=== PATIENT | female | born 1955 | race Caucasian/White ===

== ENCOUNTER 2018-01-04 13:52 | Day surgery (SDC) | payer OTHER ==
[~2018-01-04 13:52] MED LIST: AMLO10 PO; ATEN25; ATEN25 PO; Amoxicillin500 MG PO; BENTYL10 MG PO; BUPR100 PO; BUPR150ER PO; BUPR150T2; BUPR150T2 PO; BUSP10; BUSP10 PO; CELE400; CITA20; CITA20 PO; CONEST.625 PO; CYCL10; CYCL10 PO; DOCU100 PO; DOXY100 PO; ESTR2; FLUC200; FLUC200 PO; GABA400; GABA400 PO; GYNAZOLE; GYNAZOLE VG; Glucagon Emergen1 MG IJ; HUMALOG; HYDCHL25 PO; HYDCOR10 PO; INSLI100I; INSLIS75I SC; INSLIS75I SUBQ; INSULIN PUMP; KETO120T TOP; LEVSOD50; LIDO5TP TOP; LIDOCARE1 EACH TP; LISI5; LISI5 PO; LORA.5 PO; LORA1; LORA1 PO; META800 PO; METH10 PO; METH5 PO; METO10 PO; MINO100; MODA200; Methadose 40 mg40 MG PO; OLME20 PO; OMEP20ER PO; ONDA4ODT MM; ONDA8ODT MM; OXYACE10; OXYC10ER; OXYC30 PO; OXYC30ER PO; OXYC5; OXYC5 PO; OXYCODONE 15 MG; PHENTERMINE; PROC25S PR; PROM12.5S PR; PROM25 PO; PROM25 PR; PROM25S PR; ROSU10TA; ROSU10TA PO; VALA500; VALA500 PO; VALACYCLOVIR1000 MG PO; WELLBUTRIN 300 MG; Zofran Odt4 MG SL; Zofran Odt8 MG SL; [UNRECOGNIZED DRUG - OTHER]; [UNRECOGNIZED DRUG - OTHER] SC
== END 2018-01-04 22:49 | disposition home or self-care (01) ==
LOC: WOUND 13:52
DX: Z48.00 Encounter for change or removal of nonsurgical wound dressing (principal); S81.801A Unspecified open wound, right lower leg, initial encounter; E10.9 Type 1 diabetes mellitus without complications; Z79.4 Long term (current) use of insulin
CPT/HCPCS: G0463

== ENCOUNTER → 2018-10-30 | Outpatient (CLI) | payer OTHER ==
[~2018-10-30] MED LIST changes: +ACET325 PO; -AMLO10 PO; +AMLO5 PO; +ASPI325EC PO; +Adipex-P37.5 MG PO; +Advair Hfa 230-12 GM; +Augmentin 875-1 EACH PO; +Azor 10-20 MG1 EACH; +BENZ100A PO; +Buspirone HCl10 MG PO; +Crestor20 MG PO; +FERRO-TIME325 MG PO; +FLUC150A PO; +FURO40 PO; +Flonase 0.05% N16 GM; +Fluocinonide60 ML TOP; +HYDCHL12.5 PO; +Hair, Skin & N1 EACH PO; +Humalog100 UNIT/1 SC; +Hydrochlorothia25 MG PO; +INSU100I6 SC; +LIDO5TO TOP; +LIDO700A20 TOP; +LIDOCAINE1 EACH TOP; +LOSA25 PO; +METH10; +MIRT30 PO; +NARCAN4 MG INH; +Novolog Fl100 UNIT/1 INJ; +Percocet 5-3251 EACH PO; -ROSU10TA PO; +ROSUVASTATIN CA20 MG PO; +Stool Softener250 MG PO; +Zithromax250 MG PO
== END | disposition home or self-care (01) ==
LOC: LAB 15:00 → LAB SHORT 15:00
DX: N89.8 Other specified noninflammatory disorders of vagina (principal)
CPT/HCPCS: 87070; 87205

== ENCOUNTER 2018-11-07 13:18 | Emergency (ER) | payer OTHER ==
[~2018-11-07] VITALS: Ht 177.8 cm; Wt 95.2 kg
[~2018-11-07 13:18] MED LIST changes: -ASPI325EC PO; -Adipex-P37.5 MG PO; -Advair Hfa 230-12 GM; -Augmentin 875-1 EACH PO; -Azor 10-20 MG1 EACH; -Buspirone HCl10 MG PO; -Hydrochlorothia25 MG PO; -LIDO5TO TOP; -Percocet 5-3251 EACH PO; -ROSUVASTATIN CA20 MG PO
[2018-11-07 14:09] LABS: BASOPHILS ABSOLUTE AUTO 0.01 K/mm3 (0.00-0.23); BASOPHILS PERCENT AUTO 0 % (0-2); EOSINOPHILS ABSOLUTE AUTO 0.12 K/mm3 (0.00-0.68); EOSINOPHILS PERCENT AUTO 2 % (0-6); Hematocrit 37.1 % (33.0-51.0); Hemoglobin 12.2 g/dL (11.5-16.0); IMMATURE GRAN ABSOLUTE AUTO 0.01 K/mm3 (0.00-0.10); IMMATURE GRAN PERCENT AUTO 0 % (0-1); LYMPHOCYTES ABSOLUTE AUTO 1.95 K/mm3 (0.84-5.20); LYMPHOCYTES PERCENT AUTO 32 % (21-46); MONOCYTES PERCENT AUTO 8 % (4-13); Mean Corpuscular HGB 29.7 pg (26.0-34.0); Mean Corpuscular HGB Conc 32.9 g/dL (31.5-36.5); Mean Corpuscular Volume 90 fL (80-100); NEUTROPHILS ABSOLUTE AUTO 3.59 K/mm3 (1.96-9.15); NEUTROPHILS PERCENT AUTO 58 % (41-73); Platelet Count 321 K/mm3 (150-400); RDW Coefficient Variation 11.8 % (11.7-14.2); RDW Standard Deviation 38.8 fL (35.1-46.3); Red Blood Cell Count 4.11 M/mm3 (3.80-5.20); White Blood Cell Count 6.18 K/mm3 (4.00-11.30)
[2018-11-07 15:04] LABS: Alanine Aminotransfer (ALT/SGP 25 U/L (12-78); Albumin, Blood 3.5 g/dL (3.4-5.0); Alk Phos 109 U/L (50-136); Anion Gap 8 mmol/L (6-16); Aspartate Aminotrans (AST/SGOT 26 U/L (12-37); Bilirubin, Total 0.5 mg/dL (0.1-1.0); Blood Urea Nitrogen 16 mg/dL (8-24); Bun/Creatinine Ratio 10.8 (12.0-20.0); CO2, Blood 28 mmol/L (21-32); Calcium, Blood 8.8 mg/dL (8.5-10.1); Chloride, Blood 101 mmol/L (98-108); Creatinine, Blood 1.48 mg/dL (0.40-1.00); Globulin, Blood 3.5 g/dL (2.2-4.0); Glomerular Filtration Rate 38 (60-); Glucose, Blood 122 mg/dL (70-99); Potassium, Blood 4.6 mmol/L (3.5-5.5); Sodium, Blood 137 mmol/L (136-145); Troponin I <0.015 ng/mL (0.000-0.040)
[2018-11-07] MEDS ORDERED: Azor 10-20 MG1 EACH (15:38)
[2018-11-07] MEDS ORDERED: CONEST.625 PO (15:39)
[2018-11-07] MEDS ORDERED: Hydrochlorothia25 MG PO (15:39)
[2018-11-07] MEDS ORDERED: FLUC200 PO (15:39)
[2018-11-07] MEDS ORDERED: ATEN25 PO (15:39)
[2018-11-07] MEDS ORDERED: METO10 PO (15:40)
[2018-11-07] MEDS ORDERED: Adipex-P37.5 MG PO (15:40)
[2018-11-07] MEDS ORDERED: LOSA25 PO (15:40)
[2018-11-07] MEDS ORDERED: ROSUVASTATIN CA20 MG PO (15:40)
[2018-11-07] MEDS ORDERED: LIDO5TO TOP (15:41)
[2018-11-07] MEDS ORDERED: METH10 PO (15:41)
[2018-11-07] MEDS ORDERED: Advair Hfa 230-12 GM (15:41)
[2018-11-07] MEDS ORDERED: Buspirone HCl10 MG PO (15:41)
== END 2018-11-07 17:10 | disposition home or self-care (01) ==
LOC: ER 13:18
PROVIDERS: Physician Assistant
DX: I49.3 Ventricular premature depolarization (principal); R00.2 Palpitations; E11.9 Type 2 diabetes mellitus without complications; I10 Essential (primary) hypertension
CPT/HCPCS: 36415; 71046; 80053; 83735; 83880; 84443; 84484; 85025; 93005; 93010; 93225; 93226; 99285-25

== ENCOUNTER 2018-11-10 19:47 | Observation (INO) | payer OTHER ==
[~2018-11-10] VITALS: Ht 177.8 cm; Wt 96.2 kg
[~2018-11-10 19:47] MED LIST changes: +Adipex-P37.5 MG PO; +Advair Hfa 230-12 GM; +Azor 10-20 MG1 EACH; +Buspirone HCl10 MG PO; +Hydrochlorothia25 MG PO; +LIDO5TO TOP; +ROSUVASTATIN CA20 MG PO
[2018-11-10 22:04] LABS: BASOPHILS ABSOLUTE AUTO 0.03 K/mm3 (0.00-0.23); BASOPHILS PERCENT AUTO 1 % (0-2); EOSINOPHILS ABSOLUTE AUTO 0.16 K/mm3 (0.00-0.68); EOSINOPHILS PERCENT AUTO 3 % (0-6); Hematocrit 38.2 % (33.0-51.0); Hemoglobin 12.5 g/dL (11.5-16.0); IMMATURE GRAN PERCENT AUTO 0 % (0-1); LYMPHOCYTES ABSOLUTE AUTO 1.54 K/mm3 (0.84-5.20); LYMPHOCYTES PERCENT AUTO 26 % (21-46); MONOCYTES ABSOLUTE AUTO 0.55 K/mm3 (0.16-1.47); MONOCYTES PERCENT AUTO 9 % (4-13); Mean Corpuscular HGB 29.4 pg (26.0-34.0); Mean Corpuscular HGB Conc 32.7 g/dL (31.5-36.5); Mean Corpuscular Volume 90 fL (80-100); Mean Platelet Volume 10.2 fL (9.1-12.4); NEUTROPHILS ABSOLUTE AUTO 3.72 K/mm3 (1.96-9.15); NEUTROPHILS PERCENT AUTO 62 % (41-73); Platelet Count 319 K/mm3 (150-400); RDW Coefficient Variation 11.6 % (11.7-14.2); RDW Standard Deviation 38.1 fL (35.1-46.3); Red Blood Cell Count 4.25 M/mm3 (3.80-5.20)
[2018-11-10 22:19] LABS: International Normalized Ratio 0.94
[2018-11-10 22:22] LABS: Albumin, Blood 3.6 g/dL (3.4-5.0); Albumin/Globulin Ratio 0.9 (0.8-1.8); Bilirubin, Total 0.2 mg/dL (0.1-1.0); Calcium, Blood 9.1 mg/dL (8.5-10.1); Creatinine, Blood 1.46 mg/dL (0.40-1.00); Potassium, Blood 4.2 mmol/L (3.5-5.5); Total Protein, Blood 7.6 g/dL (6.4-8.2)
--- NOTE | 2018-11-11 05:28 | NUR ---
SHIFT SUMMARY PT ADMITTED FOR FOREIGN BODY IN LEFT KNEE. SHE'S SCHEDULED FOR SURGERY TODAY AN ADD-ON. PT IS A&O, INDEPENDENT AT BASELINE, THOUGH WITH HER KNEE PAIN SHE IS CURRENTLY A 1 ASSIST. PT IS PAINFUL AT REST AND HAS CHRONIC PAIN ISSUES, AND SHE BECOMES MORE PAINFUL WITH MOVEMENT. SHE USES METHADONE DAILY. PT HAS BEEN NPO SINCE MIDNIGHT IN PREP FOR SURGERY. SHE IS A VERY DIFFICULT IV START AND DOES NOT YET HAVE AN 18G. RUNNING FLUIDS AT THIS TIME. PT IS A TYPE 1 DIABETIC AND HAS AN INSULIN PUMP AND A FREESTYLE SENSOR IN THE RIGHT ARM FOR CHECKING HER BLOOD SUGAR. CHLORHEXADINE WIPES USED ON LEFT KNEE PER PROTOCOL. WILL CTM UNTIL PASS TO NEXT SHIFT.
--- NOTE | 2018-11-11 06:22 | NUR ---
[facility] SENSOR CBG 87 AT [id number]
--- NOTE | 2018-11-11 14:05 | NUR ---
PT ARRIVED BACK TO ROOM POST-OP AT APPROXIMATELY 1325. PT ALERT AND ORIENTED. COMPLAINING OF 9/10 PAIN. PT WAS GIVEN PERCOCET FOR PAIN. PT ALSO ASKED FOR METHADONE WHICH WAS DECLINED UNTIL PERCOCET HAD AMPLE TIME TO START WORKING. VSS. WILL MONITOR UNTIL REPORT TO ONCOMING RN.
[2018-11-11] MEDS ORDERED: ASPI325EC PO (15:28)
[2018-11-11] MEDS ORDERED: Augmentin 875-1 EACH PO (15:30)
[2018-11-11] MEDS ORDERED: Percocet 5-3251 EACH PO (15:31)
--- NOTE | 2018-11-11 16:32 | NUR ---
DISCHARGED PT PROVIDED WITH WRITTEN AND VERBAL DISCHARGE INSTRUCTIONS, DRESSINGS AND PRESCRIPTIONS. PT REPORTED UNDERSTAINDING INSTRUCTIONS AFTER QUESTIONS WERE ANSWERED. PT REPORTED PAIN WAS MANAGED. PT WAS ABLE TO AMBULATE BEFORE DISCHARGING. VSS. PT ESCORTED OUT IN W/C.
--- NOTE | 2018-11-11 16:36 | NUR ---
18G IV REMOVED FROM RFA PRIOR TO DISCHARGE. IV WAS PLACED BY DAY SURGERY PRIOR TO SURGERY.
--- NOTE | 2018-11-12 08:11 | NUR ---
11/12/18 0811 Leona Jacob VERIFICATIONS: EDIT CHART.
== END 2018-11-11 16:25 | disposition home or self-care (01) ==
LOC: ER 19:47 → SURS 19:48
PROVIDERS: Physician Assistant; ADMIT Hospitalist
PROC: 0KCT0ZZ Extirpation of Matter from Left Lower Leg Muscle, Open Approach (ICD-10-PCS; principal; 2018-11-10)
DX: S81.042A Puncture wound with foreign body, left knee, initial encounter (principal); I12.9 Hypertensive chronic kidney disease with stage 1 through stage 4 chronic kidney disease, or unspecified chronic kidney disease; E10.22 Type 1 diabetes mellitus with diabetic chronic kidney disease; N18.3 Chronic kidney disease, stage 3 (moderate); F11.10 Opioid abuse, uncomplicated; E10.42 Type 1 diabetes mellitus with diabetic polyneuropathy; E10.43 Type 1 diabetes mellitus with diabetic autonomic (poly)neuropathy; K31.84 Gastroparesis; E78.5 Hyperlipidemia, unspecified; E66.9 Obesity, unspecified; Z23 Encounter for immunization; Z79.899 Other long term (current) drug therapy; Z96.41 Presence of insulin pump (external) (internal); Z68.30 Body mass index [BMI] 30.0-30.9, adult; W46.0XXA Contact with hypodermic needle, initial encounter
CPT/HCPCS: 73564; 80053; 82947; 85025; 85610; 86850; 86900; 86901; 90471; 90714; 94762; 96374; 99284-25; G0378; J0690; J2370; J2405; J2765; J3010; J3370; J3480; J7030; J7120

== ENCOUNTER 2019-09-21 23:50 | Observation (INO) | payer OTHER ==
[~2019-09-21] VITALS: Ht 177.8 cm; Wt 109.5 kg
[~2019-09-21 23:50] MED LIST changes: +ASPI325EC PO; +Augmentin 875-1 EACH PO; +Percocet 5-3251 EACH PO
[2019-09-22 02:05] LABS: BASOPHILS ABSOLUTE AUTO 0.02 K/mm3 (0.00-0.23); BASOPHILS PERCENT AUTO 0 % (0-2); EOSINOPHILS PERCENT AUTO 0 % (0-6); Hematocrit 31.1 % (33.0-51.0); IMMATURE GRAN ABSOLUTE AUTO 0.06 K/mm3 (0.00-0.10); IMMATURE GRAN PERCENT AUTO 0 % (0-1); LYMPHOCYTES ABSOLUTE AUTO 0.56 K/mm3 (0.84-5.20); LYMPHOCYTES PERCENT AUTO 4 % (21-46); MONOCYTES ABSOLUTE AUTO 0.78 K/mm3 (0.16-1.47); MONOCYTES PERCENT AUTO 6 % (4-13); Mean Corpuscular HGB Conc 32.2 g/dL (31.5-36.5); Mean Corpuscular Volume 93 fL (80-100); Mean Platelet Volume 9.7 fL (9.1-12.4); NEUTROPHILS ABSOLUTE AUTO 12.59 K/mm3 (1.96-9.15); NEUTROPHILS PERCENT AUTO 90 % (41-73); Platelet Count 291 K/mm3 (150-400); RDW Coefficient Variation 12.2 % (11.7-14.2); RDW Standard Deviation 41.7 fL (35.1-46.3); Red Blood Cell Count 3.33 M/mm3 (3.80-5.20); White Blood Cell Count 14.01 K/mm3 (4.00-11.30)
[2019-09-22 02:12] LABS: Base Excess Venous 1.3 mmol/L; Bicarbonate Venous 25.4 mmol/L (24.0-30.0); PCO2 Venous 43.1 mmHg (38-42); PO2 Venous 154 mmHg (38-42); pH Blood Venous 7.39 (7.34-7.37)
[2019-09-22 02:24] LABS: Alanine Aminotransfer (ALT/SGP 20 U/L (12-78); Albumin, Blood 2.7 g/dL (3.4-5.0); Albumin/Globulin Ratio 0.7 (0.8-1.8); Alk Phos 134 U/L (50-136); Anion Gap 8 mmol/L (6-16); Aspartate Aminotrans (AST/SGOT 20 U/L (12-37); Bilirubin, Total 0.3 mg/dL (0.1-1.0); Blood Urea Nitrogen 26 mg/dL (8-24); Bun/Creatinine Ratio 24.8 (12.0-20.0); CO2, Blood 26 mmol/L (21-32); Calcium, Blood 8.3 mg/dL (8.5-10.1); Chloride, Blood 100 mmol/L (98-108); Creatinine, Blood 1.05 mg/dL (0.40-1.00); Glomerular Filtration Rate 56 (60-); Glucose, Blood 346 mg/dL (70-99); Potassium, Blood 4.7 mmol/L (3.5-5.5); Sodium, Blood 134 mmol/L (136-145); Total Protein, Blood 6.7 g/dL (6.4-8.2)
[2019-09-22 02:29] LABS: Troponin I 0.113 ng/mL (0.000-0.040)
[2019-09-22 02:33] LABS: Beta-hydroxybutyrate 4.9 mg/dL (0.2-2.8)
[2019-09-22] MEDS ORDERED: Prinivil10 MG PO (05:07)
--- NOTE | 2019-09-22 07:45 | NUR ---
SHIFT SUMMARY: VSS. AFEB. SPOT CBG CHECK 250. PT VERY LETHARGIC. WAKES UP LONG ENOUGH TO ANSWER QUESTIONS AND FALLS ASLEEP IMMEDIATELY. 02 97% ON 2L. NO SOB, NO COUGH, NO RESP DISTRESS. CALL BUTTON EXPLAINED AND PLACED WITHIN REACH, BED LOW.
[2019-09-22 09:46] LABS: Source, Urine Clean Catch
[2019-09-22 09:50] LABS: Appearance, Urine Clear (Clear); Bilirubin, Urine Neg (Neg); Blood, Urine Neg (Neg); Color, Urine Yellow (P-Yellow); Glucose Qualitative, Urine 4+ (Neg); Ketones, Urine 2+ (Neg); Leukocyte Esterase, Urine Neg (Neg); Nitrite, Urine Neg (Neg); Protein, Urine 2+ (Neg); Specific Gravity, Urine 1.015 (1.003-1.022); Urobilinogen, Urine NORM (Normal)
[2019-09-22 10:01] LABS: Bacteria Not Seen /hpf; Red Blood Cells, Urine 0-2 /hpf (0-2); Squamous Epithelial Cells Few /hpf (Few); White Blood Cells, Urine 0-2 /hpf (0-5)
--- NOTE | 2019-09-22 12:25 | NUR ---
ECHOCARDIOGRAM COMPLETED
--- NOTE | 2019-09-22 17:39 | NUR ---
SHIFT SUMMARY PT AXO, PLEASANT AND COOPERATIVE WITH CARE. 94% ON 1L, WILL CONTINUE TO WEEN FROM PR. VSS. PT MEDICATED FOR PAIN PER EMAR AND PROVIDIED WITH HEAT PAD FOR COMFORT. PT CBG INCREASING THROUGHOUT THE SHIFT FROM 252 AT 0728 TO 419 AT 1610. PT NOTIFIED WHO ENTERED THIS NUMBER INTO PUMP AND GAVE SELF BOLUS OF 3.[address] SPNECER NOTIFIED WHO ORDERED NURSE TO ASK PT IF SHE WAS ABLE TO MOVE HER PUMP. PT STATES THAT SHE IS ABLE TO MOVE PUMP BUT HER SUPPLIES ARE AT HOME AND SHE DOES NOT WANT TO. SHE ALSO STATED THAT SHE DOES NOT WANT TURN PUMP OFF EITHER. BEDTIME DOSE OF LANUTS ORDERED PER DR SPENCER IF BEDTIME CBG IS OVER 250. AWATING A CBG AT THIS TIME TO FOLLOW UP ON BOLUS. PT REPORTS THAT OVERALL SHE FEELS BETTER. BED IN LOW POSITION, CALL LIGHT WITHIN REACH.
[2019-09-23 00:04] LABS: Adenovirus Not Detected (NOT DETECT); Bordetella pertussis Not Detected (NOT DETECT); Chlamydophila pneumoniae Not Detected (NOT DETECT); Coronavirus 229E Not Detected (NOT DETECT); Coronavirus HKU1 Not Detected (NOT DETECT); Coronavirus NL63 Not Detected (NOT DETECT); Coronavirus OC43 Not Detected (NOT DETECT); Human Metapneumovirus Not Detected (NOT DETECT); Human Rhinovirus/Enterovirus Not Detected (NOT DETECT); Influenza A Not Detected (NOT DETECT); Influenza A/2009-H1 Not Detected (NOT DETECT); Influenza A/H1 Not Detected (NOT DETECT); Influenza A/H3 Not Detected (NOT DETECT); Influenza B Not Detected (NOT DETECT); Mycoplasma pneumoniae Not Detected (NOT DETECT); Parainfluenza Virus 1 Not Detected (NOT DETECT); Parainfluenza Virus 2 Not Detected (NOT DETECT); Parainfluenza Virus 3 Not Detected (NOT DETECT); Parainfluenza Virus 4 Not Detected (NOT DETECT); Respiratory Syncytial Virus Not Detected (NOT DETECT)
--- NOTE | 2019-09-23 04:57 | NUR ---
PT INDEPENDENTLY CHANGED INSULIN PUMP TUBING AND SITE AT .
--- NOTE | 2019-09-23 04:58 | NUR ---
SHIFT SUMMARY: VSS. AFEB. 02 SATS 93% ON 1L VIA NC. LSCTA EXCEPT DIM BASES. OCC NON-PRODUCTIVE COUGHING. +2 PITTING EDEMA ON BLE FROM TOES TO UPPER THIGHS AND BUE FROM FINGER TO SHOULDERS. PRN DIURETIC ADMINISTERED PER EMAR. PT STATES SWELLING IS WORSE THAN SHE TYPICALLY SEES IN HERSELF. PT REPORTING L HIP PAIN 10/10 WITH MOVEMENT. STATES THIS PAIN IS NEW FOR HER. DENIES ANY RECENT FALLS. NO VISIBLE BRUISING OR DEFORMITY OBSERVED IN L HIP. NO EXTERNAL ROTATION OF L FOOT. IS ABLE TO BEAR WT ON L LEG AND AMB WITH SBA TO BATHROOM. HOT PACK IN PLACE. PT STATES THAT SHE DOESN'T FEEL LIKE HERSELF, SHE FEELS FOGGY MENTALLY. HAS BEEN ABLE TO ANSWER ALL QUESTIONS APPROPRIATELY. A/OX4. MAKING NEEDS KNOWN. BED LOW, CALL BUTTON IN REACH.
[2019-09-23 05:01] LABS: Hemoglobin 9.2 g/dL (11.5-16.0); Mean Corpuscular HGB 30.3 pg (26.0-34.0); Mean Corpuscular HGB Conc 31.7 g/dL (31.5-36.5); Mean Corpuscular Volume 95 fL (80-100); Platelet Count 264 K/mm3 (150-400); RDW Coefficient Variation 12.4 % (11.7-14.2); RDW Standard Deviation 43.7 fL (35.1-46.3); Red Blood Cell Count 3.04 M/mm3 (3.80-5.20); White Blood Cell Count 7.87 K/mm3 (4.00-11.30)
[2019-09-23 05:21] LABS: Albumin, Blood 2.5 g/dL (3.4-5.0); Albumin/Globulin Ratio 0.6 (0.8-1.8); Bilirubin, Total 0.2 mg/dL (0.1-1.0); Bun/Creatinine Ratio 20.6 (12.0-20.0); Calcium, Blood 8.3 mg/dL (8.5-10.1); Creatinine, Blood 1.41 mg/dL (0.40-1.00); Globulin, Blood 3.9 g/dL (2.2-4.0); Potassium, Blood 4.5 mmol/L (3.5-5.5); Total Protein, Blood 6.4 g/dL (6.4-8.2)
[2019-09-23] MEDS ORDERED: LEVO750 PO (12:24)
--- NOTE | 2019-09-23 13:52 | NUR ---
DISCHARGE DISCAHRGE MEDICATIONS AND INSTRUCTIONS EXPLAINED TO PATIENT. PATIENT STATED UNDERSTANDING. FOLLOW UPS WITH PCP AND DR. ARORA SCHEDULED. HOME VISIT WITH [facility] SCHEDULED. IV REMOVED WITHOUT DIFFICULTY. BELONGINGS WITH PATIENT. PATIENT ESCORTED TO PRIVATE VEHICLE VIA WHEELCHAIR BY RN.
== END 2019-09-23 13:45 | disposition home or self-care (01) ==
LOC: ER 23:50 → MEDS 23:52 → ER 09-22 04:28 → MEDS 09-22 04:28
PROVIDERS: Physician Assistant; ADMIT Internal Medicine
DX: A41.9 Sepsis, unspecified organism (principal); R65.20 Severe sepsis without septic shock; J96.01 Acute respiratory failure with hypoxia; J18.9 Pneumonia, unspecified organism; E10.65 Type 1 diabetes mellitus with hyperglycemia; E10.43 Type 1 diabetes mellitus with diabetic autonomic (poly)neuropathy; K31.84 Gastroparesis; I11.0 Hypertensive heart disease with heart failure; I50.32 Chronic diastolic (congestive) heart failure; E78.5 Hyperlipidemia, unspecified; M79.7 Fibromyalgia; R53.1 Weakness; G89.29 Other chronic pain; F11.20 Opioid dependence, uncomplicated; E86.0 Dehydration; E66.9 Obesity, unspecified; Z23 Encounter for immunization; Z68.31 Body mass index [BMI] 31.0-31.9, adult; Z79.82 Long term (current) use of aspirin; Z79.4 Long term (current) use of insulin; Z79.899 Other long term (current) drug therapy
CPT/HCPCS: 0099U; 36415; 71046; 80053; 81001; 82010; 82803; 82947; 83605; 83880; 84484; 85025; 85027; 87040; 90686; 92610; 93005; 93010; 93306; 94640; 94760; 96361; 96365; 96366; 96367; 96372; 96375; 96376; 99285-25; A9270; G0008; G0378; J0456; J0696; J1650; J1940; J1956; J2405; J7030; J7050; J7120

== ENCOUNTER 2019-12-14 07:52 | Emergency (ER) | payer OTHER ==
[~2019-12-14] VITALS: Ht 177.8 cm; Wt 93.0 kg
[~2019-12-14 07:52] MED LIST changes: +LEVO750 PO; +Prinivil10 MG PO
[2019-12-14 10:20] LABS: BASOPHILS ABSOLUTE AUTO 0.02 K/mm3 (0.00-0.23); BASOPHILS PERCENT AUTO 0 % (0-2); EOSINOPHILS PERCENT AUTO 1 % (0-6); Hemoglobin 11.5 g/dL (11.5-16.0); IMMATURE GRAN ABSOLUTE AUTO 0.03 K/mm3 (0.00-0.10); IMMATURE GRAN PERCENT AUTO 0 % (0-1); LYMPHOCYTES PERCENT AUTO 11 % (21-46); MONOCYTES ABSOLUTE AUTO 0.89 K/mm3 (0.16-1.47); MONOCYTES PERCENT AUTO 9 % (4-13); Mean Corpuscular HGB 29.6 pg (26.0-34.0); Mean Corpuscular HGB Conc 31.9 g/dL (31.5-36.5); Mean Corpuscular Volume 93 fL (80-100); Mean Platelet Volume 10.4 fL (9.1-12.4); NEUTROPHILS ABSOLUTE AUTO 8.13 K/mm3 (1.96-9.15); NEUTROPHILS PERCENT AUTO 79 % (41-73); Platelet Count 305 K/mm3 (150-400); RDW Coefficient Variation 12.3 % (11.7-14.2); RDW Standard Deviation 41.9 fL (35.1-46.3); Red Blood Cell Count 3.89 M/mm3 (3.80-5.20); White Blood Cell Count 10.27 K/mm3 (4.00-11.30)
[2019-12-14 10:33] LABS: Bun/Creatinine Ratio 16.7 (12.0-20.0); Calcium, Blood 8.8 mg/dL (8.5-10.1); Creatinine, Blood 1.02 mg/dL (0.40-1.00); Potassium, Blood 4.5 mmol/L (3.5-5.5)
[2019-12-14 10:58] LABS: Source, Urine Catheter
[2019-12-14 11:03] LABS: Bilirubin, Urine Neg (Neg); Blood, Urine 3+ (Neg); Glucose Qualitative, Urine Neg (Neg); Ketones, Urine Neg (Neg); Leukocyte Esterase, Urine Neg (Neg); Nitrite, Urine Neg (Neg); Protein, Urine 2+ (Neg); Urobilinogen, Urine NORM (Normal)
[2019-12-14 11:08] LABS: Appearance, Urine Clear (Clear); Color, Urine Yellow (P-Yellow)
[2019-12-14 11:09] LABS: White Blood Cells, Urine Rare /hpf (0-5)
[2019-12-14 11:10] LABS: Bacteria Rare /hpf; Red Blood Cells, Urine 0-2 /hpf (0-2); Squamous Epithelial Cells Many /hpf (Few)
[2019-12-14] MEDS ORDERED: Cleocin HCl150 MG PO (11:18)
[2019-12-14] MEDS ORDERED: Mupirocin22 GM TOP (11:18)
== END 2019-12-14 11:35 | disposition home or self-care (01) ==
LOC: ER 07:52
PROVIDERS: Emergency Medicine
DX: S01.01XA Laceration without foreign body of scalp, initial encounter (principal); S30.0XXA Contusion of lower back and pelvis, initial encounter; G89.4 Chronic pain syndrome; L03.115 Cellulitis of right lower limb; W19.XXXA Unspecified fall, initial encounter; Z79.899 Other long term (current) drug therapy; Z79.4 Long term (current) use of insulin; I10 Essential (primary) hypertension; E78.5 Hyperlipidemia, unspecified; E11.43 Type 2 diabetes mellitus with diabetic autonomic (poly)neuropathy; K31.84 Gastroparesis
CPT/HCPCS: 12002; 36415; 51701; 72220; 80048; 81001; 85025; 87086; 93005; 93010; 99284-25

== ENCOUNTER 2020-05-25 03:47 | Observation (INO) | payer OTHER ==
[~2020-05-25] VITALS: Ht 177.8 cm; Wt 104.3 kg
[~2020-05-25 03:47] MED LIST changes: +Cleocin HCl150 MG PO; +Mupirocin22 GM TOP
[2020-05-25 04:11] LABS: BASOPHILS ABSOLUTE AUTO 0.03 K/mm3 (0.00-0.23); BASOPHILS PERCENT AUTO 0 % (0-2); EOSINOPHILS ABSOLUTE AUTO 0.04 K/mm3 (0.00-0.68); EOSINOPHILS PERCENT AUTO 0 % (0-6); Hematocrit 41.7 % (33.0-51.0); Hemoglobin 13.9 g/dL (11.5-16.0); IMMATURE GRAN ABSOLUTE AUTO 0.04 K/mm3 (0.00-0.10); IMMATURE GRAN PERCENT AUTO 0 % (0-1); LYMPHOCYTES ABSOLUTE AUTO 1.08 K/mm3 (0.84-5.20); LYMPHOCYTES PERCENT AUTO 9 % (21-46); MONOCYTES ABSOLUTE AUTO 0.47 K/mm3 (0.16-1.47); MONOCYTES PERCENT AUTO 4 % (4-13); Mean Corpuscular HGB 30.8 pg (26.0-34.0); Mean Corpuscular HGB Conc 33.3 g/dL (31.5-36.5); Mean Corpuscular Volume 93 fL (80-100); Mean Platelet Volume 10.2 fL (9.1-12.4); NEUTROPHILS ABSOLUTE AUTO 11.02 K/mm3 (1.96-9.15); NEUTROPHILS PERCENT AUTO 87 % (41-73); Platelet Count 319 K/mm3 (150-400); RDW Coefficient Variation 11.4 % (11.7-14.2); RDW Standard Deviation 38.6 fL (35.1-46.3); Red Blood Cell Count 4.51 M/mm3 (3.80-5.20); White Blood Cell Count 12.68 K/mm3 (4.00-11.30)
[2020-05-25 04:45] LABS: Albumin, Blood 3.2 g/dL (3.4-5.0); Albumin/Globulin Ratio 0.7 (0.8-1.8); Beta-hydroxybutyrate 40.1 mg/dL (0.2-2.8); Bilirubin, Total 0.4 mg/dL (0.1-1.0); Bun/Creatinine Ratio 18.3 (12.0-20.0); Calcium, Blood 9.6 mg/dL (8.5-10.1); Creatinine, Blood 1.31 mg/dL (0.40-1.00); Globulin, Blood 4.4 g/dL (2.2-4.0); Potassium, Blood 4.3 mmol/L (3.5-5.5); Total Protein, Blood 7.6 g/dL (6.4-8.2)
[2020-05-25 08:25] LABS: Source, Urine Clean Catch
[2020-05-25 08:35] LABS: Bilirubin, Urine Neg (Neg); Blood, Urine Neg (Neg); Glucose Qualitative, Urine 4+ (Neg); Ketones, Urine 3+ (Neg); Leukocyte Esterase, Urine Neg (Neg); Nitrite, Urine Neg (Neg); Protein, Urine 3+ (Neg); Urobilinogen, Urine NORM (Normal); pH, Urine 6.5 (5.0-8.0)
[2020-05-25 08:40] LABS: Appearance, Urine Clear (Clear); Color, Urine Pale Yellow (P-Yellow)
[2020-05-25 08:41] LABS: Red Blood Cells, Urine 0-2 /hpf (0-2)
[2020-05-25 08:42] LABS: Bacteria Mod /hpf; Squamous Epithelial Cells Few /hpf (Few)
[2020-05-25 08:51] LABS: U Amphetamine Screen Not Detected; U Barbituate Screen Not Detected; U Methamphetamine Screen Not Detected
[2020-05-25 08:52] LABS: U Benzodiazapine Screen Not Detected; U Buprenorphine Screen Not Detected; U Cannabinoids Screen DETECTED; U Cocaine Screen Not Detected; U Methadone Screen DETECTED; U Opiates Screen Not Detected; U Oxycodone Screen Not Detected; U Phencyclidine Screen Not Detected; U Propoxyphene Screen Not Detected
[2020-05-25] MEDS ORDERED: LISI5 PO (09:03)
[2020-05-25] MEDS ORDERED: Adipex-P37.5 M1 PO (09:17)
[2020-05-25] MEDS ORDERED: NOVOLOG100 UNIT/3 SC (09:23)
[2020-05-25] MEDS ORDERED: ONDA4ODT PO (09:26)
[2020-05-25] MEDS ORDERED: Proctosol HC30 GM PR (09:27)
[2020-05-25] MEDS ORDERED: Amlodipine Bes2.5 MG PO (09:31)
--- NOTE | 2020-05-25 13:48 | NUR ---
Patient is sitting up in bed and alert. Patient talks about the horrible night that led to her hospitalization, about the mystery (to patient) of what medical issues patient has and what the plan of care is moving forward. Patient states that it "must be the flu." Patient tells me about her Bahai gaurav and eveybody's "need for Johann." Patient says that she has fears about her health. I listen empathically, normalize patient's fears, discuss positive ways to deal with fears, and provide pastoral adult school counselor and prayer. Patient responds well and shows signs of reduced fear. I will continue to remain available to patient and family.
--- NOTE | 2020-05-25 14:15 | NUR ---
PT BLOOD GLUCOSE 381 @1200, PT DOSED WITH INSULIN PUMP. RECHECK 30MIN LATER GLUCOSE 320
--- NOTE | 2020-05-25 18:42 | NUR ---
SHIFT SUMMARY- PT WAS AN ER ADMIT FROM THIS MORNING. SHE WAS ORIENTED TO THE ROOM. SHE WAS STARTED ON IV FLUIDS. SHE WAS NPO AND ADVANCED TO A FULL LIQUID DIET. SHE HAS HAD SOME INTERMITENT NAUSEA THROUGHOUT THIS SHIFT. SHE HAS SLEPT FREQUENTLY DURING THIS SHIFT. SHE TOLERATED HER DINNER WELL. SHE HAS HER OWN BLOOD GLUCOSE MONITOR AND INSULIN PUMP. OK PER DR. SPENCER FOR HER TO MANAGE WITH US MONITORING. HER BLOOD SUGAR HAS BEEN ELEVATED BUT STABLE. AT THE END OF THE SHIFT SHE RAN OUT OF INSULIN IN HER PUMP. DR. SPENCER ORDERED A MED SLIDING SCALE.
--- NOTE | 2020-05-25 22:12 | NUR ---
PT REFUSED BLOOD GLUCOSE TEST, NURSE NOTIFIED
[2020-05-26 04:52] LABS: BASOPHILS ABSOLUTE AUTO 0.02 K/mm3 (0.00-0.23); BASOPHILS PERCENT AUTO 0 % (0-2); EOSINOPHILS ABSOLUTE AUTO 0.07 K/mm3 (0.00-0.68); EOSINOPHILS PERCENT AUTO 1 % (0-6); Hematocrit 34.1 % (33.0-51.0); Hemoglobin 11.7 g/dL (11.5-16.0); IMMATURE GRAN ABSOLUTE AUTO 0.03 K/mm3 (0.00-0.10); IMMATURE GRAN PERCENT AUTO 0 % (0-1); LYMPHOCYTES ABSOLUTE AUTO 1.66 K/mm3 (0.84-5.20); LYMPHOCYTES PERCENT AUTO 17 % (21-46); MONOCYTES ABSOLUTE AUTO 0.96 K/mm3 (0.16-1.47); MONOCYTES PERCENT AUTO 10 % (4-13); Mean Corpuscular HGB 30.7 pg (26.0-34.0); Mean Corpuscular HGB Conc 34.3 g/dL (31.5-36.5); Mean Corpuscular Volume 90 fL (80-100); NEUTROPHILS PERCENT AUTO 71 % (41-73); Platelet Count 244 K/mm3 (150-400); RDW Coefficient Variation 11.5 % (11.7-14.2); RDW Standard Deviation 37.3 fL (35.1-46.3); Red Blood Cell Count 3.81 M/mm3 (3.80-5.20); White Blood Cell Count 9.54 K/mm3 (4.00-11.30)
[2020-05-26 05:16] LABS: Albumin, Blood 2.7 g/dL (3.4-5.0); Albumin/Globulin Ratio 0.7 (0.8-1.8); Bilirubin, Total 0.3 mg/dL (0.1-1.0); Bun/Creatinine Ratio 17.6 (12.0-20.0); Creatinine, Blood 1.25 mg/dL (0.40-1.00); Globulin, Blood 3.8 g/dL (2.2-4.0); Potassium, Blood 4.2 mmol/L (3.5-5.5); Total Protein, Blood 6.5 g/dL (6.4-8.2)
--- NOTE | 2020-05-26 05:51 | NUR ---
PT tolerating full liquids with setup. Nausea mild relieved by phenergan 12.5 IV x 2 . Completed 2 l NS IV. Calm cooperative. Slept most of shift. On methadone for chronic pain. No drug seeking behaviors.
--- NOTE | 2020-05-26 07:45 | NUR ---
AM BLOOD GLUCOSE 313; PT CHECKED WHILE RN AT BEDSIDE WITH DESTINY DEVICE. PT PROGRAMED INTO PUMP CBG INTO PUMP.
--- NOTE | 2020-05-26 11:42 | NUR ---
1130 BLOOD GLUCOSE 337 - PT ADMINISTERING BOLUS VIA INSULING PUMP
--- NOTE | 2020-05-26 16:48 | NUR ---
1648 BLOOD GLUCOSE 241 - PT ENTERED INTO INSULIN PUMP FOR BOLUS
--- NOTE | 2020-05-26 17:46 | NUR ---
SHIFT SUMMARY PT A&Ox4; CALM AND COOPERATIVE WITH CARE. PT RESTING IN BED DURING SHIFT. UP IN HALLS WALKING IND. PT REPROTS "ALL OVER" PAIN, MEDICATED x2 WTIH SCHEDULED METHADONE. PT REPROTS NAUSEA T/O SHIFT; MEDICATED WITH SCHEDULED AND PRN MEDICATION PER EMAR. PT DENIES CHEST PAIN, SOB, DIZZINESS AND NUMB/TINGLING. PT HAS RED RASH UNDER BREASTS AND PT IS REQUESTION HOME MEDICATIONS; NOTIFIED DR CALIX; NEW ORDERS ENTERED. PT CHECKING BLOOD GLUCOSE WITH HOME MONITOR AT BEDSIDE AND ENTERING INTO INULIN PUMP FOR BOLUS T/O SHIFT. VSS. NO OTHER ACUTE CHANGES NOTED DURING SHIFT. WILL CONTINUE TO MONITOR UNITL REPORT GIVEN TO ONCOMING RN.
--- NOTE | 2020-05-26 20:37 | NUR ---
PT REFUSED BLOOD GLUCOSE TEST, NURSE NOTIFIED.
--- NOTE | 2020-05-27 01:52 | NUR ---
PER PT'S MONITOR, HS BLOOD SUGAR WAS 314. PATIENT COVERED VIA HER IMPLANTED INSULIN PUMP.
[2020-05-27 05:40] LABS: Albumin, Blood 2.9 g/dL (3.4-5.0); Anion Gap 6 mmol/L (6-16); Blood Urea Nitrogen 19 mg/dL (8-24); Bun/Creatinine Ratio 16.2 (12.0-20.0); CO2, Blood 27 mmol/L (21-32); Calcium, Blood 8.5 mg/dL (8.5-10.1); Chloride, Blood 104 mmol/L (98-108); Creatinine, Blood 1.17 mg/dL (0.40-1.00); Glomerular Filtration Rate 49 (60-); Glucose, Blood 397 mg/dL (70-99); Phosphorus, Blood 2.7 mg/dL (2.5-4.9); Potassium, Blood 4.1 mmol/L (3.5-5.5); Sodium, Blood 137 mmol/L (136-145)
--- NOTE | 2020-05-27 06:19 | NUR ---
SHIFT SUMMARY PT IS A 65 Y/O FEMALE, ADMITTED FOR DIABETIC GASTROPARESIS. SHE IS A&O X 4, 1PA TO THE BATHROOM. PT REPORTED THAT SHE FELT "BETTER THAN WHEN I CAME IN", AND WAS MEDICATED ONCE FOR NAUSEA WITH PRN ZOFRAN. NO COMPLAINTS OF ACUTE PAIN OR SOB. VITAL SIGNS STABLE. PT SLEPT WELL DURING THE NIGHT. NO ACUTE CHANGES IN PT CONDITION NOTED. WILL CONTINUE TO MONITOR AND TREAT PER EMAR UNTIL HAND OFF TO DAY SHIFT RN.
--- NOTE | 2020-05-27 07:37 | NUR ---
CBG 243 PER PT'S IMPLANTED DEVICE.
--- NOTE | 2020-05-27 12:32 | NUR ---
PATIENT DISCHARGED TO HOME IN THE COMPANY OF HER ROOMMATE MYLES. IV SL REMOVED WITHOUT INCIDENT. NO NEW MEDICATIONS ORDERED. PT LEFT UNIT AT 1209 VIA W/C. VERBALIZED UNDERSTRANDING OF D/C INSTRUCTIONS.
== END 2020-05-27 12:10 | disposition home or self-care (01) ==
LOC: ER 03:47 → MEDS 03:48
PROVIDERS: Emergency Medicine; Internal Medicine; ADMIT Internal Medicine
DX: E10.43 Type 1 diabetes mellitus with diabetic autonomic (poly)neuropathy (principal); E10.22 Type 1 diabetes mellitus with diabetic chronic kidney disease; E10.65 Type 1 diabetes mellitus with hyperglycemia; I12.9 Hypertensive chronic kidney disease with stage 1 through stage 4 chronic kidney disease, or unspecified chronic kidney disease; K31.84 Gastroparesis; N18.3 Chronic kidney disease, stage 3 (moderate); G89.29 Other chronic pain; E78.5 Hyperlipidemia, unspecified; F11.20 Opioid dependence, uncomplicated; E66.9 Obesity, unspecified; E86.0 Dehydration; M79.7 Fibromyalgia; N17.9 Acute kidney failure, unspecified; Z68.33 Body mass index [BMI] 33.0-33.9, adult; Z79.899 Other long term (current) drug therapy
CPT/HCPCS: 36415; 74176; 80053; 80069; 81001; 82010; 82947; 83690; 83735; 85025; 87086; 96361; 96372; 96374; 96375; 96376; 99285-25; A9270-GY; C9113; G0378; J1650; J1815; J2405; J2550; J2765; J7030; J7120

== ENCOUNTER 2020-06-09 16:20 | Inpatient (IN) | payer OTHER ==
[~2020-06-09] VITALS: Ht 177.8 cm; Wt 107.8 kg
[~2020-06-09 16:20] MED LIST changes: +Adipex-P37.5 M1 PO; +Amlodipine Bes2.5 MG PO; +NOVOLOG100 UNIT/3 SC; +ONDA4ODT PO; +Proctosol HC30 GM PR
[2020-06-09 17:25] LABS: BASOPHILS ABSOLUTE AUTO 0.06 K/mm3 (0.00-0.23); BASOPHILS PERCENT AUTO 0 % (0-2); EOSINOPHILS ABSOLUTE AUTO 0.01 K/mm3 (0.00-0.68); EOSINOPHILS PERCENT AUTO 0 % (0-6); Hematocrit 37.7 % (33.0-51.0); Hemoglobin 11.6 g/dL (11.5-16.0); IMMATURE GRAN ABSOLUTE AUTO 0.05 K/mm3 (0.00-0.10); IMMATURE GRAN PERCENT AUTO 0 % (0-1); LYMPHOCYTES ABSOLUTE AUTO 0.75 K/mm3 (0.84-5.20); LYMPHOCYTES PERCENT AUTO 5 % (21-46); MONOCYTES ABSOLUTE AUTO 0.42 K/mm3 (0.16-1.47); MONOCYTES PERCENT AUTO 3 % (4-13); Mean Corpuscular HGB 30.1 pg (26.0-34.0); Mean Corpuscular HGB Conc 30.8 g/dL (31.5-36.5); Mean Corpuscular Volume 98 fL (80-100); Mean Platelet Volume 10.9 fL (9.1-12.4); NEUTROPHILS ABSOLUTE AUTO 12.76 K/mm3 (1.96-9.15); NEUTROPHILS PERCENT AUTO 91 % (41-73); Platelet Count 368 K/mm3 (150-400); RDW Coefficient Variation 11.5 % (11.7-14.2); RDW Standard Deviation 40.9 fL (35.1-46.3); Red Blood Cell Count 3.86 M/mm3 (3.80-5.20); White Blood Cell Count 14.05 K/mm3 (4.00-11.30)
[2020-06-09 17:41] LABS: Albumin, Blood 3.1 g/dL (3.4-5.0); Albumin/Globulin Ratio 0.8 (0.8-1.8); Bilirubin, Total 0.4 mg/dL (0.1-1.0); Bun/Creatinine Ratio 21.9 (12.0-20.0); Calcium, Blood 9.3 mg/dL (8.5-10.1); Creatinine, Blood 1.46 mg/dL (0.40-1.00); Globulin, Blood 3.9 g/dL (2.2-4.0); Potassium, Blood 5.7 mmol/L (3.5-5.5)
[2020-06-09 19:45] LABS: Magnesium, Blood 1.8 mg/dL (1.6-2.4); Phosphorus, Blood 5.8 mg/dL (2.5-4.9)
[2020-06-09] MEDS ORDERED: Methadone HCl10 MG PO (20:12)
[2020-06-09] MEDS ORDERED: NOVOLOG100 UNIT/2 (20:17)
[2020-06-09] MEDS ORDERED: AMLODIPINE BES2.5 MG PO (20:24)
[2020-06-09] MEDS ORDERED: ATENOLOL25 MG PO (20:25)
[2020-06-09] MEDS ORDERED: Buspirone HCl30 MG PO (20:25)
[2020-06-09] MEDS ORDERED: Neurontin400 MG PO (20:25)
[2020-06-09 20:38] LABS: Base Excess Venous -17.8 mmol/L; Bicarbonate Venous 11.4 mmol/L (24.0-30.0); PCO2 Venous 38.4 mmHg (38-42); PO2 Venous 39.5 mmHg (38-42)
[2020-06-09 21:01] LABS: Glucose, Blood 665 mg/dL (70-99)
--- NOTE | 2020-06-09 22:14 | NUR ---
ADMIT PT ARRIVED AT ICU ROOM 11 AT 2214. PT AWAKE AND ALERT. INSULIN INFUSING AT 10U/HR. NS INFUSING AT 150ML/HR. PT NAUSEOUS AND COMPLAINING OF HEART BURN LIKE PAIN. SEE ADMIT ASSESSMENT FOR FULL ASSESSMENT.
[2020-06-09 22:54] LABS: Calcium, Blood 8.5 mg/dL (8.5-10.1); Creatinine, Blood 2.05 mg/dL (0.40-1.00); Potassium, Blood 4.3 mmol/L (3.5-5.5)
[2020-06-10 00:10] LABS: Glucose, Blood 528 mg/dL (70-99)
[2020-06-10] MEDS ORDERED: FURO40 PO (02:34)
[2020-06-10] MEDS ORDERED: PROM25 PO (02:36)
[2020-06-10] MEDS ORDERED: ONDA4ODT PO (02:37)
[2020-06-10] MEDS ORDERED: METO10 PO (02:38)
[2020-06-10] MEDS ORDERED: FLUC200 PO (02:40)
[2020-06-10] MEDS ORDERED: HYDCOR2.5C TOP (02:41)
[2020-06-10] MEDS ORDERED: LIDO5TO TOP (02:44)
[2020-06-10 04:04] LABS: BASOPHILS ABSOLUTE AUTO 0.05 K/mm3 (0.00-0.23); BASOPHILS PERCENT AUTO 0 % (0-2); EOSINOPHILS PERCENT AUTO 0 % (0-6); Hematocrit 36.9 % (33.0-51.0); IMMATURE GRAN ABSOLUTE AUTO 0.12 K/mm3 (0.00-0.10); IMMATURE GRAN PERCENT AUTO 1 % (0-1); LYMPHOCYTES ABSOLUTE AUTO 1.34 K/mm3 (0.84-5.20); LYMPHOCYTES PERCENT AUTO 6 % (21-46); MONOCYTES ABSOLUTE AUTO 1.64 K/mm3 (0.16-1.47); MONOCYTES PERCENT AUTO 8 % (4-13); Mean Corpuscular HGB 30.4 pg (26.0-34.0); Mean Corpuscular HGB Conc 32.5 g/dL (31.5-36.5); Mean Platelet Volume 10.2 fL (9.1-12.4); NEUTROPHILS ABSOLUTE AUTO 18.56 K/mm3 (1.96-9.15); NEUTROPHILS PERCENT AUTO 85 % (41-73); Platelet Count 359 K/mm3 (150-400); RDW Coefficient Variation 11.6 % (11.7-14.2); RDW Standard Deviation 39.9 fL (35.1-46.3); Red Blood Cell Count 3.95 M/mm3 (3.80-5.20); White Blood Cell Count 21.71 K/mm3 (4.00-11.30)
[2020-06-10 04:05] LABS: Mean Corpuscular Volume 93 fL (80-100)
[2020-06-10 04:24] LABS: Albumin/Globulin Ratio 0.7 (0.8-1.8); Bilirubin, Total 0.4 mg/dL (0.1-1.0); Bun/Creatinine Ratio 18.9 (12.0-20.0); Calcium, Blood 8.7 mg/dL (8.5-10.1); Creatinine, Blood 1.96 mg/dL (0.40-1.00); Globulin, Blood 4.4 g/dL (2.2-4.0); Potassium, Blood 4.3 mmol/L (3.5-5.5); Total Protein, Blood 7.4 g/dL (6.4-8.2)
--- NOTE | 2020-06-10 06:23 | NUR ---
END OF SHIFT SUMMARY PT ALERT AND ORIENTED AND SLEPT ON AND OFF DURING THE NIGHT. INSULIN INFUSING AT 6UNITS/HR. D5 1/2 NS INFUSING AT 100ML/HR. NAUSEA AND VOMITING MANAGED WITH PRN ORDERS. RR 14-30'S. HR 75-100'S. SBP 120-165'S. PT HAS NOT URNINATED YET THIS SHIFT. CURRENTLY PT ON BED CESPEDES WAITING TO VOID. WILL GIVE REPORT TO AM RN WHEN AVAILABLE.
--- NOTE | 2020-06-10 07:54 | NUR ---
ASSUMED CARE RECEIVED REPORT FROM NOC RN. PT IS LYING IN BED AWAKE, STATING SHE FEELS A LITTLE CONFUSED. BUT IS ORIENTED TO SELF SITUATION AND SURROUNDINGS. SHE IS NAUSEOUS BUT NOT CURRENTLY VOMITTING. INSULIN WAS RUNNING AT 6 UNITS/HR, BUT NOW IS AT 2 UNITS/HR AFTER A SUGAR OF 123 (DROPPED FROM 158). D5-1/2NS IS INFUSING AT 100 ML/HR. BED LOW AND LOCKED. CALL LIGHT WITHIN REACH.
[2020-06-10 10:15] LABS: Bun/Creatinine Ratio 19.2 (12.0-20.0); Calcium, Blood 8.3 mg/dL (8.5-10.1); Creatinine, Blood 1.77 mg/dL (0.40-1.00); Potassium, Blood 4.1 mmol/L (3.5-5.5)
[2020-06-10 10:29] LABS: Source, Urine Clean Catch
[2020-06-10 10:37] LABS: Bilirubin, Urine Neg (Neg); Blood, Urine Neg (Neg); Glucose Qualitative, Urine 4+ (Neg); Ketones, Urine 3+ (Neg); Leukocyte Esterase, Urine Neg (Neg); Nitrite, Urine Neg (Neg); Protein, Urine 2+ (Neg); Urobilinogen, Urine NORM (Normal)
--- NOTE | 2020-06-10 10:40 | NUR ---
UPDATE NEW IV PLACED DUE TO HER LEFT SHOULDER/CHEST IV INFILTRATING, PATENT AND FLUSHES. INSULIN WAS PAUSED DURING THE PLACEMENT OF THIS IV, (ALONG WITH HER D5-1/2NS) FOR ABOUT 15 MINUTES. PT IS STRUGGLING WITH HER INTERMITTENT NAUSEA. JARA PLACED, AND IMMEDIETLY DRAINED A LOT OF URINE, CULTURE SENT TO LAB. BED LOW AND LOCKED. CALL LIGHT WITHIN REACH.
[2020-06-10 10:45] LABS: Appearance, Urine Clear (Clear); Bacteria Rare /hpf; Color, Urine Yellow (P-Yellow); Red Blood Cells, Urine 0-2 /hpf (0-2); Squamous Epithelial Cells Not Seen /hpf (Few); White Blood Cells, Urine 0-2 /hpf (0-5); Yeast/Fungi Urine Rare /hpf
--- NOTE | 2020-06-10 12:42 | NUR ---
UPDATE PT CONTINUES TO HAVE INTERMITTENT NAUSEA, AND WRETCHING, NO EMESIS COMING UP THO (OR JUST A TINY BIT ONLY). SMALL SIPS OF WATER AND ICE CHIPS ONLY RIGHT NOW. HER BP HAS IMPROVED FROM HYDRALAZINE AND ATENOLOL. PT CONTINUES TO TALK A LOT IN HER SLEEP. SHE KEEPS SAYING SHE IS CONFUSED. BED LOW AND LOCKED. CALL LIGHT WITHIN REACH.
--- NOTE | 2020-06-10 13:08 | NUR ---
INSULIN TITRATION AROUND 1125 WHEN I TOOK A SUGAR (213) I NOTICED THE IV WASN'T WORKING (KEPT SAYING DISTAL OCCLUSION). THE IV WOULDN'T FLUSH,. SO I Y-SITED THE INSULIN TO THE FLUIDS AND TURNED IT UP TO 5 UNITS/HR ON HER OTHER IV. AT 1230 I GOT A SUGAR OF 213, BUT KEPT IT AT 5 UNITS/HR, BECAUSE INSULIN WASN'T HITTING THE BLOOD STREAM FOR A SHORT PERIOD OF TIME IT WAS Y-SITED ON THE FLUIDS. WILL REEVALUATE WHEN I GET THE NEXT SUGAR.
[2020-06-10 16:08] LABS: Bun/Creatinine Ratio 21.1 (12.0-20.0); Calcium, Blood 8.2 mg/dL (8.5-10.1); Creatinine, Blood 1.52 mg/dL (0.40-1.00)
--- NOTE | 2020-06-10 17:08 | NUR ---
SHIFT SUMMARY PT STATES THAT NAUSEA IS MUCH BETTER, BUT STILL PRESENT OCCASSIONALLY. THE INSULIN GTTP WAS TURNED OFF AT 1630 ALONG WITH THE D5-1/2NS. WE LOOKED AT THE PT'S INSULIN PUMP, AND DISCOVERED THAT ITS COMPLETELY OUT OF INSULIN. SHE SAID THAT SHE WOULD CALL HER PARTNER AND HAVE HIM BRING IN MORE INSULIN TOMORROW. UNTIL THEN DR. CALIX WANTED ME TO DO A Q4H LSS OF HUMALOG. I TOOK A SUGAR AT 1630 AND IT WAS 128, SO I DIDN'T GIVE ANY SLIDING SCALE INSULIN, BUT THE PT IS FINALLY WANTING TO EAT SOMETHING MORE THAN JUST ICE CHIPS AND SIPS OF WATER. WILL START HER WITH SOME CHICKEN BROTH. I BELIEVE THIS CONFUSION SHES BEEN HAVING ISN'T AN ACUTE PROBLEM. IT SEEMS TO BE SOMETHING SHES BEEN DEALING WITH FOR A WHILE NOW. CONFUSION PERSISTED DESPITE NOT BEING IN DKA ANYMORE OR HAVING PROFOUND URINARY RETENTION. ALSO DUE TO THIS CONFUSION PT DIDN'T REALIZE HER INSULIN PUMP HAS BEEN EMPTY, PROBABLY FOR A FEW DAYS NOW. HER SHORT TERM MEMORY IS POOR. ALSO WHEN IM NOT IN THE ROOM SHE FALLS ASLEEP VERY EASILY, AND STARTS MOVING AND TALKING IN HER SLEEP UNTIL YOU WAKE HER UP AND SHE HAS NO IDEA WHATS GOING ON FOR A FEW SECONDS. IN SAYING THAT, HOWEVER, PT IS STILL ORIENTED TO SELF, SURROUNDINGS, SITUATION, AND HER PLATONIC PARTNER, WHIT, WHO HAS BEEN HELPING TAKE CARE OF HER AT HOME. SHE HAD A JARA CATHETER INSERTED TODAY AND IT DRAINED 1800 ML OF YELLOW URINE. BED LOW AND LOCKED. CALL LIGHT WITHIN REACH.
--- NOTE | 2020-06-10 18:33 | NUR ---
Per admit trigger, I met with Jenelle to offer information on advanced directive and prayer. She would like her friend, Trever to be her MPOA. I explained to her that, because of this, an advanced directive would be really helpful. She denied having any family. Her son at 22. She asked me to pray for healing and I happily complied. I will remain available.
--- NOTE | 2020-06-10 19:30 | NUR ---
SHIFT ASSESSMENT PT A&OX4. CURRENTLY IN BED C/O MILD NAUSEA WITH NO VOMITING. LS-CLEAR. NSR ON THE MONITOR. JARA CATHETER PATENT, DRAINING CLEAR, YELLOW URINE. 20 GA IV LAC PATENT, 10CC NS FLUSHED.
[2020-06-10 22:01] LABS: Bun/Creatinine Ratio 20.6 (12.0-20.0); Calcium, Blood 8.3 mg/dL (8.5-10.1); Creatinine, Blood 1.65 mg/dL (0.40-1.00); Potassium, Blood 4.5 mmol/L (3.5-5.5)
--- NOTE | 2020-06-10 22:06 | NUR ---
PT HAD 100ML OF EMESIS. UPON ENTERING ROOM, PT ADMITTED TO NEEDING TO STICK HER FINGER DOWN HER THROAT TO ASSIST c VOMITING. I DID NOT VISUALIZE ANY OF HER EVENING MEDICATIONS IN THE EMESIS.
--- NOTE | 2020-06-10 22:36 | NUR ---
CALLED MD SPOKEN WITH DR HOFFMANN ABOUT CBG LEVELS. ORDERS CHANGED TO A MEDIUM SLIDING SCALE, CHEM PROFILE, AND 1L NS.
[2020-06-11 02:07] LABS: Albumin, Blood 2.4 g/dL (3.4-5.0); Albumin/Globulin Ratio 0.7 (0.8-1.8); Bilirubin, Total 0.2 mg/dL (0.1-1.0); Bun/Creatinine Ratio 19.4 (12.0-20.0); Calcium, Blood 8.1 mg/dL (8.5-10.1); Creatinine, Blood 1.7 mg/dL (0.40-1.00); Globulin, Blood 3.5 g/dL (2.2-4.0); Potassium, Blood 3.9 mmol/L (3.5-5.5); Total Protein, Blood 5.9 g/dL (6.4-8.2)
[2020-06-11 05:19] LABS: BASOPHILS ABSOLUTE AUTO 0.05 K/mm3 (0.00-0.23); BASOPHILS PERCENT AUTO 0 % (0-2); EOSINOPHILS PERCENT AUTO 0 % (0-6); Hematocrit 33.2 % (33.0-51.0); IMMATURE GRAN ABSOLUTE AUTO 0.09 K/mm3 (0.00-0.10); IMMATURE GRAN PERCENT AUTO 1 % (0-1); LYMPHOCYTES ABSOLUTE AUTO 1.13 K/mm3 (0.84-5.20); LYMPHOCYTES PERCENT AUTO 6 % (21-46); MONOCYTES ABSOLUTE AUTO 1.59 K/mm3 (0.16-1.47); MONOCYTES PERCENT AUTO 8 % (4-13); Mean Corpuscular HGB 30.4 pg (26.0-34.0); Mean Corpuscular HGB Conc 33.1 g/dL (31.5-36.5); Mean Corpuscular Volume 92 fL (80-100); NEUTROPHILS ABSOLUTE AUTO 17.14 K/mm3 (1.96-9.15); NEUTROPHILS PERCENT AUTO 86 % (41-73); Platelet Count 314 K/mm3 (150-400); RDW Coefficient Variation 11.9 % (11.7-14.2); RDW Standard Deviation 40.4 fL (35.1-46.3); Red Blood Cell Count 3.62 M/mm3 (3.80-5.20)
--- NOTE | 2020-06-11 05:42 | NUR ---
SHIFT SUMMARY STARTED ON LANTUS, 30U BID, FIRST DOSE GIVEN THIS EVENING. MEDICATED c 10 OF METHADONE FOR GENERALIZED PAIN. ZOFRAN, AND PHENERGAN PRN FOR NAUSEA c GOOD RELIEF. HTN NOTED, MEDICATED ONCE WITH HYDRALIZINE. PT HAD 2 BOUTS OF EMESIS, ADVISED TO REFRAIN FROM STICKING FINGER DOWN THROAT TO MAKE SELF VOMIT. PO FLUIDS RESTRICTED. STARTED ON NS FOR 1L @100MLS/HR. JARA CATH PATENT, DRAINING CLEAR, LIGHT YELLOW URINE. IMPROVEMENT NOTED TO 0130 LABS, AWAITING AM LABS. REPORT TO ONCOMING NURSE.
[2020-06-11 06:08] LABS: Albumin, Blood 2.6 g/dL (3.4-5.0); Anion Gap 8 mmol/L (6-16); Blood Urea Nitrogen 32 mg/dL (8-24); Bun/Creatinine Ratio 18.8 (12.0-20.0); CO2, Blood 26 mmol/L (21-32); Calcium, Blood 8.2 mg/dL (8.5-10.1); Chloride, Blood 105 mmol/L (98-108); Glomerular Filtration Rate 32 (60-); Glucose, Blood 60 mg/dL (70-99); Phosphorus, Blood 3.1 mg/dL (2.5-4.9); Potassium, Blood 3.9 mmol/L (3.5-5.5); Sodium, Blood 139 mmol/L (136-145)
[2020-06-11 09:37] LABS: U Amphetamine Screen Not Detected; U Barbituate Screen Not Detected; U Benzodiazapine Screen Not Detected; U Buprenorphine Screen Not Detected; U Cannabinoids Screen DETECTED; U Cocaine Screen Not Detected; U Methadone Screen DETECTED; U Methamphetamine Screen Not Detected; U Opiates Screen Not Detected; U Oxycodone Screen Not Detected; U Phencyclidine Screen Not Detected; U Propoxyphene Screen Not Detected
--- NOTE | 2020-06-11 09:59 | NUR ---
AM NOTE... ASSUMED CARE OF PT APROX 0700, PT IS A&Ox4 BUT STATES "I AM CONFUSED" WHEN ASKED HOW SHE FEELS SHE IS CONFUSED THE PT STATES "I JUST FORGET WHAT TO SAY SOMETIMES." PT IS IN NSR IN THE 80'S-90'S, BP STABLE, NO EDEMA NOTED ON ASSESSMENT. L/S CLEAR T/O ON RA. BT PRESENT AND HYPOACTIVE, ABD HAS MILD DISTENTION, SLIGHTLY FIRM BUT NONTENDER TO PALP. PT C/O OF NAUSEA AND HAS HAD APROX 50MLS OF EMISIS THIS AM. PT'S ROOMMATE BROUGHT IN THE SUPPLIES FOR HER INSULIN PUMP, HE ASSISTED THE PT IN GETTING THE PUMP PRIMED AND ATTATCHED TO THE PT. CALL LIGHT IN REACH WILL CONTINUE TO MONITOR.
--- NOTE | 2020-06-11 10:47 | NUR ---
PT UPDATE... A POWERGLIDE WAS PLACED IN THE PT'S RIGHT UPPER ARM. WHILE THIS RN WAS IN THE ROOM OBTAINING BLOOD CLUTURES FROM THE POWERGLIDE THE PT SHOVED HER FINGERS DOWN HER THROAT TRYING TO GAG HERSELF. WHEN ASKED WHY SHE WAS DOING THIS THE PT STATED "IT MAKES ME FEEL BETTER." PT ENCOURAGED NOT TO DO THIS AGAIN. WILL CONTINUE TO MONITOR.
--- NOTE | 2020-06-11 17:29 | NUR ---
SHIFT SUMMARY... PT CONTINUES TO C/O OF NAUSEA, NO EMISIS NOTED SINCE FIRST THING THIS AM, PT CONTINUES TO PUSH HER FINGERS DOWN HER THROAT TO MAKE HER SELF THROW UP. PROVIDER IS AWARE. PT HAS BEEN HYPERTENSIVE THIS SHIFT WELL, NEW ORDERS OBTAINED FOR LABATALOL IV FOR SBP >160 PT RESPONDS WELL TO THIS. JARA PATENT AND DRAINING CLEAR YELLOW URINE TO GRAVITY. NO BM THIS SHIFT. PT REFUSED BEDBATH AND HAS BEEN REFUSING TURNS AND MINOR SHIFTS, PT FINALLY AGREE TO ALLOW STAFF TO PLACE PILLOWS UNDER HER HIPS BILAT TO HELP REDUCE PRESSURE, PT EDUCATED ON PRESSURE ULCER PREVENTION, PT VERBALIZED HER UNDERSTANDING BUT STILL REFUSED TURNS. INSULIN PUMP IS PRIMED AND ATTACHED TO THE PT, NO BASAL RATE IS PROGRAMED FOR THE PUMP JUST BOLUS DOSES. PT HAS NOT NEEDED ANY COVERAGE THIS SHIFT. PT IS TO TRANSFER TO PCU 14, REPORT CALLED TO RAZ BILLINGS. ALL OF PT'S BELONGINGS PACKED AND SENT WITH THE PT.
[2020-06-12 04:59] LABS: BASOPHILS ABSOLUTE AUTO 0.02 K/mm3 (0.00-0.23); BASOPHILS PERCENT AUTO 0 % (0-2); EOSINOPHILS PERCENT AUTO 0 % (0-6); Hematocrit 35.5 % (33.0-51.0); Hemoglobin 11.7 g/dL (11.5-16.0); IMMATURE GRAN ABSOLUTE AUTO 0.08 K/mm3 (0.00-0.10); IMMATURE GRAN PERCENT AUTO 1 % (0-1); LYMPHOCYTES ABSOLUTE AUTO 0.57 K/mm3 (0.84-5.20); LYMPHOCYTES PERCENT AUTO 4 % (21-46); MONOCYTES ABSOLUTE AUTO 1.15 K/mm3 (0.16-1.47); MONOCYTES PERCENT AUTO 8 % (4-13); Mean Corpuscular HGB 30.4 pg (26.0-34.0); Mean Corpuscular Volume 92 fL (80-100); Mean Platelet Volume 9.8 fL (9.1-12.4); NEUTROPHILS ABSOLUTE AUTO 12.82 K/mm3 (1.96-9.15); NEUTROPHILS PERCENT AUTO 88 % (41-73); Platelet Count 269 K/mm3 (150-400); RDW Coefficient Variation 12.2 % (11.7-14.2); RDW Standard Deviation 40.9 fL (35.1-46.3); Red Blood Cell Count 3.85 M/mm3 (3.80-5.20); White Blood Cell Count 14.64 K/mm3 (4.00-11.30)
[2020-06-12 05:19] LABS: Albumin, Blood 2.5 g/dL (3.4-5.0); Anion Gap 11 mmol/L (6-16); Blood Urea Nitrogen 16 mg/dL (8-24); Bun/Creatinine Ratio 15.4 (12.0-20.0); CO2, Blood 24 mmol/L (21-32); Calcium, Blood 7.7 mg/dL (8.5-10.1); Chloride, Blood 106 mmol/L (98-108); Creatinine, Blood 1.04 mg/dL (0.40-1.00); Glomerular Filtration Rate 57 (60-); Glucose, Blood 135 mg/dL (70-99); Magnesium, Blood 1.7 mg/dL (1.6-2.4); Phosphorus, Blood 2.2 mg/dL (2.5-4.9); Potassium, Blood 3.3 mmol/L (3.5-5.5); Sodium, Blood 141 mmol/L (136-145)
--- NOTE | 2020-06-12 06:06 | NUR ---
SHIFT SUMMARY PT UNABLE TO SLEEP T/O SHIFT. PT REPORTED NAUSEA T/O SHIFT. MEDICATIONS GIVEN PER EMAR. COOL RAGS APPLIED FOR COMFORT. PT REPORTS MINIMAL RELIEF OF NAUSEA. CBG'S Q 4 HR. PT DID NOT NEED INSULING COVERAGE T/O SHIFT. PT REPOSITIONED Q 2 HRS OR NEEDED T/O SHIFT. PT HYPERTENSIVE, MEDICATIONS GIVEN PER EMAR. PT REPORTS NO CP OR PRESSURE. O2 SATURATION ABOVE 92% WHILE ON RA. HR STABLE. WILL CONTINUE TO MONITOR UNTIL REPORT GIVEN TO DAYSHIFT RN.
--- NOTE | 2020-06-12 07:55 | NUR ---
C/O NAUSEA ALL NIGHT AND ALL DAY YESTERDAY. STATES IS NOT VOMITING, ABLE TO KEEP DOWN ICE WATER AND OCCASIONAL PO MEDS. PHENERGAN GIVEN PER PRN ORDERS AT THIS TIME. REPOSITIONED IN BED USING THE LIFT. C/O PAIN, WHICH SHE WAS GIVEN METHADONE PER PRN ORDERS FOR AT THIS TIME. STATES NOT YET UP TO TAKING HER GABAPENTIN.
--- NOTE | 2020-06-12 12:33 | NUR ---
Pt continues to tolerate ice water, refusing any other clear liquids such as popsicle, lakshmi mist, tea, etc. Blood pressure responding to IV prn hydralazine. Awaiting new orders for lisinopril, increased frequency of compazine from Dr. Hernandez. No vomiting, but pt continues to c/o ongoing nausea. No further c/o pain.
--- NOTE | 2020-06-12 17:52 | NUR ---
summary The pt's robles was dc'd this morning at 10am. She has had nausea she states all day long, unabated. Denies any vomiting. Has tolerated drinking ice water, declined any other clear liquids. OOB to [facility] and attempted to void at 1700, not because she felt any urge to void but was encouraged to attempt due to the catheter being discontinued earier and continuous IV fluids infusing today. She was unable to void. Bladder scan showed 335 cc in her bladder. STates she will attempt to void again later. States that her pain has decreased today and is better controlled at 5/10 now.
[2020-06-13 04:15] LABS: BASOPHILS ABSOLUTE AUTO 0.02 K/mm3 (0.00-0.23); BASOPHILS PERCENT AUTO 0 % (0-2); EOSINOPHILS PERCENT AUTO 0 % (0-6); Hemoglobin 10.4 g/dL (11.5-16.0); IMMATURE GRAN ABSOLUTE AUTO 0.07 K/mm3 (0.00-0.10); IMMATURE GRAN PERCENT AUTO 1 % (0-1); LYMPHOCYTES ABSOLUTE AUTO 0.71 K/mm3 (0.84-5.20); LYMPHOCYTES PERCENT AUTO 5 % (21-46); MONOCYTES ABSOLUTE AUTO 1.03 K/mm3 (0.16-1.47); MONOCYTES PERCENT AUTO 8 % (4-13); Mean Corpuscular HGB 30.2 pg (26.0-34.0); Mean Corpuscular HGB Conc 32.5 g/dL (31.5-36.5); Mean Corpuscular Volume 93 fL (80-100); Mean Platelet Volume 10.2 fL (9.1-12.4); NEUTROPHILS ABSOLUTE AUTO 11.56 K/mm3 (1.96-9.15); NEUTROPHILS PERCENT AUTO 86 % (41-73); Platelet Count 245 K/mm3 (150-400); RDW Coefficient Variation 12.1 % (11.7-14.2); RDW Standard Deviation 41.4 fL (35.1-46.3); Red Blood Cell Count 3.44 M/mm3 (3.80-5.20); White Blood Cell Count 13.39 K/mm3 (4.00-11.30)
[2020-06-13 04:36] LABS: Albumin, Blood 2.2 g/dL (3.4-5.0); Anion Gap 12 mmol/L (6-16); Blood Urea Nitrogen 13 mg/dL (8-24); Bun/Creatinine Ratio 13.5 (12.0-20.0); CO2, Blood 22 mmol/L (21-32); Chloride, Blood 105 mmol/L (98-108); Creatinine, Blood 0.96 mg/dL (0.40-1.00); Glomerular Filtration Rate >60 (60-); Glucose, Blood 278 mg/dL (70-99); Magnesium, Blood 1.5 mg/dL (1.6-2.4); Phosphorus, Blood 2.7 mg/dL (2.5-4.9); Potassium, Blood 3.4 mmol/L (3.5-5.5); Sodium, Blood 139 mmol/L (136-145)
--- NOTE | 2020-06-13 05:13 | NUR ---
sHIFT SUMMARY: PATIENT UNABLE TO URINATE, STATES SHE HAS NO SENSATION INDICATING THAT SHE NEEDS TO URINATE. BLADDER SCAN INDICATED THAT SHE HAD >950 ML OF URINE IN BLADDER. I&O CATH WITH 1100ML OUTPUT. BLOOD PRESSURE EASIER TO CONTROL WHEN PATIENT IS NOT NAUSEATED, NO OTHER ISSUES NOTED.
--- NOTE | 2020-06-13 09:13 | NUR ---
PT WAS SLEEPING SOUNDLY AT 0700. PT AWAKE AT 0900. C/O CHRONIC PAIN "EVERYWHERE"; MEDTHADONE. GIVEN. PT ALSO C/O SEVERE BURNING TO ESOPHAGUS D/T VOMITING. PT C/O NAUSEA BUT STATES ITS SOMEWHAT IMPROVED. PT AWAKE BUT DROWSY AND UNABLE TO ANSWER ALL QUESTIONS CLEARLY. MILD CONFUSION. INSULIN PUMP RUNNING AT .350UNITS. CBG'S Q6. ORAL PILLS GIVEN W APPLESAUCE; CAUSED INCREASED NAUSEA COMPLAINTS; PHENERGAN IV GIVEN. UNABLE TO TOLERATE PO FLUIDS. NS IV RUNNING AT 150CC/HR. MAG 1GM INFUSING, K+ 40MEQ TO RUN AFTER PT HAS ONE IV SITE. DR CALIX AT BEDSIDE NOW
--- NOTE | 2020-06-13 13:03 | NUR ---
PT TOLERATING WATER, NO ACTIVE N/V AT THIS TIME. K+STILL INFUSING. 14F JARA CATH USED I&O CATH IT CAN STAY INDWELLING UP TO ONE HOUR TO SUFF. DRAIN PER MD. >1000CC OUT SO FAR. PT HOANG PROCEDURE WELL. PT HYPERTENSIVE. IF BP NOT IMPROVED AFTER BLADDER EMPTIED WILL GIVE PRN HTN MED. PT HAS VISITOR; PT MORE ALERT/AWAKE THAN GLADYS.
--- NOTE | 2020-06-13 19:46 | NUR ---
CARE ASSUMED REPORT RECEIVED, CARE ASSUMED AT 1900. PT AWAKE IN BED, ORIENTED. REPORTING NAUSEA AND DISCOMFORT IN HER ESOPHAGUS. REQUESTING MEDICATIONS, UPDATED HER ON SCHEDULE. AGREEABLE TO HAVE MEDS WHEN AVAILABLE AT 1999. PT DENIES FURTHER NEEDS AT THIS TIME. VITALS STABLE. SEE SHIFT ASSESSMENT.
--- NOTE | 2020-06-13 20:06 | NUR ---
UPDATE MEDICATED WITH RECTAL ANTI-EMETIC. PT UNABLE TO TAKE ORAL PILLS AT THIS TIME DUE TO NAUSEA. SODA AT BEDSIDE. PT REPOSITIONED, PROVIDED WITH COOL WASHCLOTH, DECLINES FURTHER NEEDS.
--- NOTE | 2020-06-14 01:21 | NUR ---
PERSISTENT NAUSEA PT CONTINUES TO BE SEVERELY NAUSEATED, DRY HEAVING INTERMITTENTLY. ALL OPTIONS PER EMAR EXHAUSTED. SPOKE WITH DR. SPENCER. NEW ORDER FOR ATIVAN. SEE ORDER. BP ALSO ELEVATED. HYDRALAZINE AND LABETOLOL GIVEN AND BP CONTINUES TO BE ELEVATED. LIKELY RELATED TO PT DISCOMFORT, BUT WILL CONTINUE TO MONITOR.
[2020-06-14 03:58] LABS: BASOPHILS ABSOLUTE AUTO 0.03 K/mm3 (0.00-0.23); BASOPHILS PERCENT AUTO 0 % (0-2); EOSINOPHILS ABSOLUTE AUTO 0.12 K/mm3 (0.00-0.68); EOSINOPHILS PERCENT AUTO 1 % (0-6); Hemoglobin 10.1 g/dL (11.5-16.0); IMMATURE GRAN ABSOLUTE AUTO 0.07 K/mm3 (0.00-0.10); IMMATURE GRAN PERCENT AUTO 1 % (0-1); LYMPHOCYTES ABSOLUTE AUTO 0.79 K/mm3 (0.84-5.20); LYMPHOCYTES PERCENT AUTO 7 % (21-46); MONOCYTES PERCENT AUTO 10 % (4-13); Mean Corpuscular HGB 30.4 pg (26.0-34.0); Mean Corpuscular HGB Conc 32.6 g/dL (31.5-36.5); Mean Corpuscular Volume 93 fL (80-100); Mean Platelet Volume 10.5 fL (9.1-12.4); NEUTROPHILS ABSOLUTE AUTO 8.78 K/mm3 (1.96-9.15); NEUTROPHILS PERCENT AUTO 81 % (41-73); Platelet Count 241 K/mm3 (150-400); RDW Coefficient Variation 12.1 % (11.7-14.2); RDW Standard Deviation 41.3 fL (35.1-46.3); Red Blood Cell Count 3.32 M/mm3 (3.80-5.20); White Blood Cell Count 10.89 K/mm3 (4.00-11.30)
[2020-06-14 04:18] LABS: Anion Gap 5 mmol/L (6-16); Blood Urea Nitrogen 9 mg/dL (8-24); Bun/Creatinine Ratio 10.1 (12.0-20.0); CO2, Blood 26 mmol/L (21-32); Calcium, Blood 7.5 mg/dL (8.5-10.1); Chloride, Blood 107 mmol/L (98-108); Creatinine, Blood 0.89 mg/dL (0.40-1.00); Glomerular Filtration Rate >60 (60-); Glucose, Blood 194 mg/dL (70-99); Magnesium, Blood 1.6 mg/dL (1.6-2.4); Phosphorus, Blood 2.2 mg/dL (2.5-4.9); Potassium, Blood 3.6 mmol/L (3.5-5.5); Sodium, Blood 138 mmol/L (136-145)
--- NOTE | 2020-06-14 05:01 | NUR ---
SUMMARY SINCE PREVIOUS NOTE, ATIVAN WAS GIVEN AND PT HAS REPORTED FEELING MUCH BETTER. SHE HAS BEEN SLEEPING, BUT AROUSES EASILY FOR REPEAT ASSESSMENTS AND REPORTS ONLY MILD NAUSEA. ELEVATED BLOOD PRESSURE IMPROVED DRASTICALLY AFTER ATIVAN WAS GIVEN AND PT BECAME MORE COMFORTABLE. SEE REPEAT VITALS ASSESSMENTS. PT HAS REPORTED ADEQUATE PAIN MANAGEMENT WITH SCHEDULED METHADONE, THOUGH DOES REPORT NEVER BEING COMPLETELY PAIN FREE. PT'S HOME INSULIN PUMP CONTINUES TO BE ATTACHED TO PT, WORKING PER HOME REGIME ACCORDING TO PATIENT. CONTINUING WITH Q6H BLOOD SUGARS UNTIL PT ABLE TO TOLERATE MORE PO INTAKE. PT DID REQUIRE SMALL AMOUNT OF SLIDING SCALE COVERAGE ON TOP OF HOME INSULIN PUMP. NS CONTINUES TO INFUSE AT 100 ML/HR, HOWEVER PT DOES HAVE SWOLLEN LEGS AND HANDS, KIDNEY FUNCTION DECLINING, THEREFORE INFUSION CONTINUES AT THIS TIME. PT BARELY TAKING IN ANY PO LIQUIDS DUE TO NAUSEA. PT BLADDER SCANNED PER ORDERS, WITH RETENTION NOTED. PT STATES SHE HAS NO URGE TO URINATE. PT EXPLAINS, "FOR SOME REASON I NEVER AM ABLE TO URINATE AT THE HOSPITAL. I STRUGGLE SOMETIMES AT HOME BUT NEVER LIKE THIS." PT ALSO EXPRESSES CONCERN ABOUT REPEATED ENTRY OF CATHETER, REQUESTING JARA. EDUCATED PT ON RISK OF INFECTION WITH JARA CATHETER BUT ENCOURAGED HER TO DISCUSS WITH HOSPITALIST ON MORNING ROUNDS. 1400 OF URINE OUT, WHICH TOOK OVER 2 HOURS TO FULLY DRAIN. CATHETER REMOVED ONCE BLADDER FINISHED DRAINING. OTHERWISE, NO CHANGES. PT CALLING APPROPRIATELY FOR NEEDS.
--- NOTE | 2020-06-14 07:19 | NUR ---
REPORT TO MANUELITO CRANDALL TO ASSUME CARE AT THIS TIME
--- NOTE | 2020-06-14 07:53 | NUR ---
ASSUMING CARE OF PT. RECEIVED REPORT FROM MANUELITO ORTIZ. PT CONTINUES TO REST QUIETLY IN BED, RESPIRATIONS EVEN AND UNLABORED, VSS.
[2020-06-14 12:16] LABS: Source, Urine Catheter
[2020-06-14 12:19] LABS: Appearance, Urine Hazy (Clear); Bilirubin, Urine Neg (Neg); Blood, Urine 2+ (Neg); Color, Urine Yellow (P-Yellow); Glucose Qualitative, Urine 2+ (Neg); Ketones, Urine 2+ (Neg); Leukocyte Esterase, Urine 2+ (Neg); Nitrite, Urine Neg (Neg); Protein, Urine 3+ (Neg); Specific Gravity, Urine 1.015 (1.003-1.022); Urobilinogen, Urine NORM (Normal)
[2020-06-14 12:38] LABS: Bacteria Many /hpf; Squamous Epithelial Cells Rare /hpf (Few); Transitional Epithelial Cells Rare /hpf (0-Rare); White Blood Cells, Urine 50-100 /hpf (0-5)
--- NOTE | 2020-06-14 18:32 | NUR ---
SHIFT SUMMARY: PT CONTINUES A&O T/OUT SHIFT, RESTS QUIETLY BUT EASY TO AROUSE, SINUS RHYTHM ON MONITOR, CONTINUES TO C/O NAUSEA BUT NO EMESIS NOTED. PT CONTINUES TO BE HYPERTENSIVE REQUIRING PRN MEDICATION COVERAGE. INDWELLING JARA WAS INSERTED APPROX 1130 WITH OVER 3500 ML OUTPUT AT THIS TIME. INITIAL OUTPUT WAS EBONY URINE THAT PROGRESSED TO LIGHT YELLOW. LASIX ORDER WAS ALSO PLACED, PT RECEIVED FIRST DOSE TODAY. PT TOLERATES PO FLUIDS, POPSICLE AND SALTINE CRACKERS. WILL CONTINUE TO MONITOR AND TREAT ACCORDINGLY UNTIL CHANGE OF SHIFT.
--- NOTE | 2020-06-14 20:43 | NUR ---
2008 PT C/O NAUSEA FEELING WITH PHENERGAN 25MG IVP GIVEN SLOWLY; HAPPY AND COOPERATIVE.
--- NOTE | 2020-06-15 03:46 | NUR ---
SHIFT SUMMARY: 65 Y/O OBESE FEMALE RESTED COMFORTABLY ALL SHIFT; PT JARA DRAINING CLEAR YELLOW FLUID; PT CONTINUES TO C/O NAUSEA AT TIMES WITH PHENERGAN 25MG IVP GIVEN TWICE AND SCHEDULED REGLAN 5MG IVP GIVEN TWICE WITH RELIEF FELT; PT TOOK ALL NIGHT MEDS IN APPLESAUCE AND VOICED BURNING WHILE SWALLOWING; PTS VOICE CLEAR AND AUDIBLE; PT HAS INSULIN PUMP THAT IS CURRENTLY ATTACHED TO RLQ FROM HOME (REFUGIO MARIE--CHARGE NURSE AWARE OF THIS DEVICE); BED LOW POSITION WITH CALL LIGHT AT SIDE.
[2020-06-15 03:47] LABS: BASOPHILS ABSOLUTE AUTO 0.03 K/mm3 (0.00-0.23); BASOPHILS PERCENT AUTO 0 % (0-2); EOSINOPHILS ABSOLUTE AUTO 0.48 K/mm3 (0.00-0.68); EOSINOPHILS PERCENT AUTO 5 % (0-6); Hematocrit 29.1 % (33.0-51.0); Hemoglobin 9.6 g/dL (11.5-16.0); IMMATURE GRAN ABSOLUTE AUTO 0.05 K/mm3 (0.00-0.10); IMMATURE GRAN PERCENT AUTO 1 % (0-1); LYMPHOCYTES ABSOLUTE AUTO 1.97 K/mm3 (0.84-5.20); LYMPHOCYTES PERCENT AUTO 21 % (21-46); MONOCYTES ABSOLUTE AUTO 0.97 K/mm3 (0.16-1.47); MONOCYTES PERCENT AUTO 10 % (4-13); Mean Corpuscular HGB 30.4 pg (26.0-34.0); Mean Corpuscular Volume 92 fL (80-100); Mean Platelet Volume 10.2 fL (9.1-12.4); NEUTROPHILS ABSOLUTE AUTO 6.03 K/mm3 (1.96-9.15); NEUTROPHILS PERCENT AUTO 63 % (41-73); Platelet Count 239 K/mm3 (150-400); RDW Coefficient Variation 11.9 % (11.7-14.2); RDW Standard Deviation 40.6 fL (35.1-46.3); Red Blood Cell Count 3.16 M/mm3 (3.80-5.20); White Blood Cell Count 9.53 K/mm3 (4.00-11.30)
[2020-06-15 04:07] LABS: Percent Saturation 23.5 % (15.0-50.0)
[2020-06-15 04:12] LABS: Alanine Aminotransfer (ALT/SGP 13 U/L (12-78); Albumin, Blood 1.7 g/dL (3.4-5.0); Albumin/Globulin Ratio 0.5 (0.8-1.8); Alk Phos 102 U/L (50-136); Anion Gap 6 mmol/L (6-16); Aspartate Aminotrans (AST/SGOT 8 U/L (12-37); Bilirubin, Total 0.2 mg/dL (0.1-1.0); Blood Urea Nitrogen 9 mg/dL (8-24); Bun/Creatinine Ratio 9.2 (12.0-20.0); CO2, Blood 27 mmol/L (21-32); Calcium, Blood 7.3 mg/dL (8.5-10.1); Chloride, Blood 108 mmol/L (98-108); Creatinine, Blood 0.98 mg/dL (0.40-1.00); Globulin, Blood 3.2 g/dL (2.2-4.0); Glomerular Filtration Rate >60 (60-); Glucose, Blood 194 mg/dL (70-99); Potassium, Blood 3.2 mmol/L (3.5-5.5); Sodium, Blood 141 mmol/L (136-145); Total Protein, Blood 4.9 g/dL (6.4-8.2)
--- NOTE | 2020-06-15 11:23 | NUR ---
PT TRANSFERED. PT TRANSFERED TO 301. PT AWAKE AND ORIENTED TO ROOM. CALL LIGHT IN REACH. PT STATES PAIN IS MANAGABLE. SLIGHT NAUSEA NOTED. TREATED PER EMAR. PT STATES COMFORTABLE IN BED. WILL CONTINUE TO MONITOR.
--- NOTE | 2020-06-15 17:51 | NUR ---
SHIFT SUMMARY PT WORKED WITH PHYSICAL THERAPY THIS SHIFT. UP TO CHAIR FOR A SHORT PERIOD OF TIME. PT UP TO CHAIR FOR DINNER WELL. [facility] COMPLETED THIS SHIFT. PT CONTINUES TO HAVE POOR APPETITE AND C/O ESPHAGEAL DISCOMFORT WITH EATING. PT EDUCATED ON THE IMPORTANCE OF GETTING UP INTO THE CHAIR FOR MEALS. INSULIN PUMP IN PLACE AND WORKING. COVERAGE ORDERED PER SLIDING SCALE Q6 HOURS. PT MEDICATED FOR PAIN SCHEDULED. NO CHANGES IN ASSESSMENT AT THIS TIME. VS REVIEWED. WILL CONTINUE TO MONITOR UNTIL TURNOVER IS COMPLETE.
--- NOTE | 2020-06-16 05:13 | NUR ---
SUMMARY PT HAD NO ISSUES NOTED. PT HAS SLEPT WELL T/O SHIFT. PT CBG CHECKS DONE ORDERED. PT HAD SOME NAUSEA AND TX PER EMAR. PT CURRENTLY AWAKE AND WATCHING TV AND IN NO DISTRESS. CALL LIGHT IN REACH.
[2020-06-16 05:49] LABS: BASOPHILS ABSOLUTE AUTO 0.04 K/mm3 (0.00-0.23); BASOPHILS PERCENT AUTO 0 % (0-2); EOSINOPHILS ABSOLUTE AUTO 0.78 K/mm3 (0.00-0.68); EOSINOPHILS PERCENT AUTO 8 % (0-6); Hematocrit 32.2 % (33.0-51.0); Hemoglobin 10.4 g/dL (11.5-16.0); IMMATURE GRAN ABSOLUTE AUTO 0.07 K/mm3 (0.00-0.10); IMMATURE GRAN PERCENT AUTO 1 % (0-1); LYMPHOCYTES PERCENT AUTO 21 % (21-46); MONOCYTES ABSOLUTE AUTO 1.22 K/mm3 (0.16-1.47); MONOCYTES PERCENT AUTO 12 % (4-13); Mean Corpuscular HGB 30.2 pg (26.0-34.0); Mean Corpuscular HGB Conc 32.3 g/dL (31.5-36.5); Mean Corpuscular Volume 94 fL (80-100); Mean Platelet Volume 10.2 fL (9.1-12.4); NEUTROPHILS ABSOLUTE AUTO 5.76 K/mm3 (1.96-9.15); NEUTROPHILS PERCENT AUTO 58 % (41-73); Platelet Count 277 K/mm3 (150-400); RDW Standard Deviation 41.1 fL (35.1-46.3); Red Blood Cell Count 3.44 M/mm3 (3.80-5.20); White Blood Cell Count 9.97 K/mm3 (4.00-11.30)
[2020-06-16 06:14] LABS: Anion Gap 5 mmol/L (6-16); Blood Urea Nitrogen 8 mg/dL (8-24); Bun/Creatinine Ratio 8.8 (12.0-20.0); CO2, Blood 27 mmol/L (21-32); Calcium, Blood 7.9 mg/dL (8.5-10.1); Chloride, Blood 110 mmol/L (98-108); Creatinine, Blood 0.91 mg/dL (0.40-1.00); Glomerular Filtration Rate >60 (60-); Glucose, Blood 172 mg/dL (70-99); Potassium, Blood 3.3 mmol/L (3.5-5.5); Sodium, Blood 142 mmol/L (136-145)
--- NOTE | 2020-06-16 17:02 | NUR ---
SHIFT SUMMARY NO C/O NAUSEA THIS SHIFT. REGLAN STILL BEING GIVEN PRIOR TO MEALS. PT TOLERATING SOFT FOOD DIET, BUT CONTINUES TO C/O THE FEELING OF FOOD "GETTING STUCK" WHILE EATING. PT TO BE NPO AFTER MIDNIGHT TONIGHT FOR UPPER GI SERIES IN THE AM. PT STARTED ON ANTIBIOTIC FOR UTI AND CONTINUOUS FLUIDS DC'ED DUE TO GOOD PO INTAKE. JARA IN PLACE. CATH CARE COMPLETED. FLOMAX STARTED TO HELP WITH CHRONIC URINARY RETENTION. PT INSULIN PUMP IN PLACE AND PATENT PER PATIENT. BLOOD SUGAR CHECKS AND INSULIN COVERAGE SWITCHED TO ACHS. VS REVIEWED. PT MEDICATED FOR CHRONIC PAIN PER EMAR. NO CHANGES IN ASSESSMENT AT THIS TIME. WILL CONTINUE TO MONITOR UNTIL TURNOVER IS COMPLETE.
--- NOTE | 2020-06-17 03:50 | NUR ---
SUMMARY PT HAD NO ISSUES NOTED. PT HAS SLEPT WELL T/O SHIFT. PT HAD SOME NAUSEA AND TX PER EMAR W/ RELIEF. PT HAS BEEN NPO ORDERED SINCE MIDNIGHT. PT CURRENTLY SLEEPING IN NO DISTRESS. CALL LIGHT IN REACH.
[2020-06-17 04:18] LABS: BASOPHILS ABSOLUTE AUTO 0.03 K/mm3 (0.00-0.23); BASOPHILS PERCENT AUTO 0 % (0-2); EOSINOPHILS ABSOLUTE AUTO 0.69 K/mm3 (0.00-0.68); EOSINOPHILS PERCENT AUTO 8 % (0-6); Hematocrit 29.4 % (33.0-51.0); Hemoglobin 9.7 g/dL (11.5-16.0); IMMATURE GRAN ABSOLUTE AUTO 0.06 K/mm3 (0.00-0.10); IMMATURE GRAN PERCENT AUTO 1 % (0-1); LYMPHOCYTES PERCENT AUTO 22 % (21-46); MONOCYTES ABSOLUTE AUTO 1.23 K/mm3 (0.16-1.47); MONOCYTES PERCENT AUTO 15 % (4-13); Mean Corpuscular HGB 30.9 pg (26.0-34.0); Mean Corpuscular Volume 94 fL (80-100); Mean Platelet Volume 10.2 fL (9.1-12.4); NEUTROPHILS ABSOLUTE AUTO 4.54 K/mm3 (1.96-9.15); NEUTROPHILS PERCENT AUTO 54 % (41-73); Platelet Count 267 K/mm3 (150-400); RDW Coefficient Variation 12.3 % (11.7-14.2); RDW Standard Deviation 41.7 fL (35.1-46.3); Red Blood Cell Count 3.14 M/mm3 (3.80-5.20); White Blood Cell Count 8.35 K/mm3 (4.00-11.30)
[2020-06-17 04:40] LABS: Alanine Aminotransfer (ALT/SGP 12 U/L (12-78); Albumin, Blood 1.7 g/dL (3.4-5.0); Albumin/Globulin Ratio 0.5 (0.8-1.8); Alk Phos 107 U/L (50-136); Anion Gap 4 mmol/L (6-16); Aspartate Aminotrans (AST/SGOT 9 U/L (12-37); Bilirubin, Total 0.2 mg/dL (0.1-1.0); Blood Urea Nitrogen 7 mg/dL (8-24); Bun/Creatinine Ratio 7.4 (12.0-20.0); CO2, Blood 28 mmol/L (21-32); Calcium, Blood 8.1 mg/dL (8.5-10.1); Chloride, Blood 110 mmol/L (98-108); Creatinine, Blood 0.95 mg/dL (0.40-1.00); Globulin, Blood 3.4 g/dL (2.2-4.0); Glomerular Filtration Rate >60 (60-); Glucose, Blood 182 mg/dL (70-99); Magnesium, Blood 1.7 mg/dL (1.6-2.4); Potassium, Blood 3.5 mmol/L (3.5-5.5); Sodium, Blood 142 mmol/L (136-145); Total Protein, Blood 5.1 g/dL (6.4-8.2)
--- NOTE | 2020-06-17 18:07 | NUR ---
SHIFT SUMMARY PT A&Ox4. NAPPING A LOT TODAY. REPORTS FEELING MUCH BETTER TODAY THAN SHE HAS BEEN. DECLINED PT TODAY D/T DROWSINESS. 1-2 SBA TO BSC AND RECLINER. PT WENT FOR UPPER GI SERIES THIS AM. DR YANES IN TO DISCUSS RESULTS AND PLAN FOR DC HOME TOMORROW. JARA DRAINING CLEAR URINE TO GRAVITY. DIET ADVANCED TO ADA DIET. TOLERATING WELL. MILD FLUID RETENTION NOTED IN [place]INSTON HANDS AND FEET. LASIX ORDERED BY DR YANES. TYPE 1 DIABETIC WITH INSULIN PUMP. COVERAGE ONLY ONLY BEFORE DINNER TODAY. PT C/O CHRONIC PAIN, BASELINE A 7 MOST OF DAY. MEDICATED PER EMAR. SLIGHT ELEVATION IN TEMP NOTED TODAY. WILL CONTINUE MONITORING. CURRENTLY RESTING IN BED WITH CALL LIGHT IN REACH.
--- NOTE | 2020-06-18 03:43 | NUR ---
SHIFT SUMMARY PT PLEASANT AND COOPERATIVE. PT SLEEPY THIS EVENING. WAKES EASILY AND ANSWERS QUESTIONS APPROPRIATELY. PT REPORTS THAT SHE IS ALWAYS SLEEPY AT BASELINE AT HOME WELL. PT'S CBG 160 AT BEDTIME. NO COVERAGE GIVEN BY THIS RN. PT DOES HAVE INSULIN PUMP. PT REFILLED INSULIN PUMP AT START OF SHIFT. PT HAS CHRONIC GENERALIZED PAIN. MEDICATED W/ SCHEDULED METHADONE PER EMAR. PT REPORTS PAIN ALWAYS A 7-8/10. JARA CATHETER PATENT AND DRAINING. EDEMA NOTED TO BILATERAL HANDS AND FEET 1+. PT REPORTS IMPROVEMENT AFTER ADMINISTRATION OF DIURETICS ON DAY SHIFT. PT DENIED NAUSEA. RA. SLEPT THROUGHOUT THE NIGHT WHEN NOT BEING WOKEN BY STAFF. NO ACUTE CHANGES THIS SHIFT. VITAL SIGNS STABLE. WILL CONTINUE TO MONITOR AND REPORT TO DAY RN.
[2020-06-18 05:18] LABS: BASOPHILS ABSOLUTE AUTO 0.03 K/mm3 (0.00-0.23); BASOPHILS PERCENT AUTO 1 % (0-2); EOSINOPHILS ABSOLUTE AUTO 0.39 K/mm3 (0.00-0.68); EOSINOPHILS PERCENT AUTO 6 % (0-6); Hematocrit 31.2 % (33.0-51.0); IMMATURE GRAN ABSOLUTE AUTO 0.05 K/mm3 (0.00-0.10); IMMATURE GRAN PERCENT AUTO 1 % (0-1); LYMPHOCYTES ABSOLUTE AUTO 1.77 K/mm3 (0.84-5.20); LYMPHOCYTES PERCENT AUTO 28 % (21-46); MONOCYTES ABSOLUTE AUTO 0.92 K/mm3 (0.16-1.47); MONOCYTES PERCENT AUTO 15 % (4-13); Mean Corpuscular HGB 29.9 pg (26.0-34.0); Mean Corpuscular HGB Conc 32.1 g/dL (31.5-36.5); Mean Corpuscular Volume 93 fL (80-100); Mean Platelet Volume 10.1 fL (9.1-12.4); NEUTROPHILS PERCENT AUTO 50 % (41-73); Platelet Count 276 K/mm3 (150-400); RDW Standard Deviation 41.1 fL (35.1-46.3); Red Blood Cell Count 3.34 M/mm3 (3.80-5.20); White Blood Cell Count 6.26 K/mm3 (4.00-11.30)
[2020-06-18 05:42] LABS: Albumin, Blood 1.8 g/dL (3.4-5.0); Albumin/Globulin Ratio 0.5 (0.8-1.8); Bilirubin, Total 0.3 mg/dL (0.1-1.0); Bun/Creatinine Ratio 5.8 (12.0-20.0); Calcium, Blood 8.2 mg/dL (8.5-10.1); Creatinine, Blood 1.03 mg/dL (0.40-1.00); Globulin, Blood 3.6 g/dL (2.2-4.0); Magnesium, Blood 1.6 mg/dL (1.6-2.4); Potassium, Blood 3.2 mmol/L (3.5-5.5); Total Protein, Blood 5.4 g/dL (6.4-8.2)
[2020-06-18] MEDS ORDERED: PANT20 PO (14:34)
[2020-06-18] MEDS ORDERED: CARAFATE1 GM/10 M1 PO (14:34)
[2020-06-18] MEDS ORDERED: Flomax0.4 MG PO (14:35)
--- NOTE | 2020-06-18 15:29 | NUR ---
PT DISCHARGED FROM THE UNIT. IV REMOVED. MEDICATIONS FAXED TO THE PHARMACY. FOLLOW UP APT SCHEDULED. DISCHARGE INSTRUCTIONS REVIEWED. PT WILL HAVE A WHEELCHAIR DELIVERED TO HER HOUSE. PT LEFT VIA WHEEL CHAIR
== END 2020-06-18 16:50 | disposition home health service (06) | DRG 638 ==
LOC: ER 16:20 → ICUW 16:21 → ER 21:51 → ICUW 22:12 → MEDS 06-10 13:09 → ICUW 06-10 13:10 → PCU 06-11 17:16 → MEDS 06-15 10:50
PROVIDERS: Emergency Medicine; Internal Medicine; Physician Assistant; ADMIT Internal Medicine
DX: E10.10 Type 1 diabetes mellitus with ketoacidosis without coma (principal); N39.0 Urinary tract infection, site not specified; N17.9 Acute kidney failure, unspecified; E87.6 Hypokalemia; E10.40 Type 1 diabetes mellitus with diabetic neuropathy, unspecified; E10.43 Type 1 diabetes mellitus with diabetic autonomic (poly)neuropathy; K31.84 Gastroparesis; N18.3 Chronic kidney disease, stage 3 (moderate); E10.22 Type 1 diabetes mellitus with diabetic chronic kidney disease; I12.9 Hypertensive chronic kidney disease with stage 1 through stage 4 chronic kidney disease, or unspecified chronic kidney disease; D63.1 Anemia in chronic kidney disease; E78.5 Hyperlipidemia, unspecified; G89.29 Other chronic pain; M79.7 Fibromyalgia; E86.0 Dehydration; B96.20 Unspecified Escherichia coli [E. coli] as the cause of diseases classified elsewhere; R13.19 Other dysphagia; Z79.891 Long term (current) use of opiate analgesic; Z79.4 Long term (current) use of insulin
CPT/HCPCS: 36415; 51701; 51702; 71045; 74240; 80048; 80053; 80069; 81001; 82010; 82728; 82803; 82947; 83540; 83550; 83735; 84100; 84443; 84484; 85025; 87040; 87077; 87086; 87186; 93005; 93010; 96361; 96372; 96374; 96375; 96376; 97110; 97116; 97162; 97530; 99285-25; A9270; A9270-GY; C9113; G0378; J0360; J0696; J1650; J1815; J1940; J2060; J2405; J2550; J2765; J3475; J3480; J7030; J7042; J7060

== ENCOUNTER → 2020-08-13 | Outpatient (CLI) | payer OTHER ==
[~2020-08-13] MED LIST changes: +AMLODIPINE BES2.5 MG PO; +ATENOLOL25 MG PO; +Buspirone HCl30 MG PO; +CARAFATE1 GM/10 M1 PO; +Flomax0.4 MG PO; +HYDCOR2.5C TOP; +Methadone HCl10 MG PO; +NOVOLOG100 UNIT/2; +Neurontin400 MG PO; +PANT20 PO
== END | disposition home or self-care (01) ==
LOC: LAB 09:52 → LAB SHORT 09:52
DX: E10.29 Type 1 diabetes mellitus with other diabetic kidney complication (principal); E78.5 Hyperlipidemia, unspecified
CPT/HCPCS: 82043

== ENCOUNTER → 2021-03-05 | Outpatient (CLI) | payer OTHER | LOC: LAB SHORT 11:45 → LAB 11:45 | DX: K61.1 Rectal abscess (principal) | CPT/HCPCS: 87070; 87075; 87077; 87147; 87186; 87205 ==

== ENCOUNTER 2021-05-13 17:32 | Inpatient (IN) | payer MEDICARE, OTHER ==
[~2021-05-13] VITALS: Ht 175.3 cm; Wt 107.7 kg
[2021-05-13 18:05] LABS: BASOPHILS ABSOLUTE AUTO 0.04 K/mm3 (0.00-0.23); BASOPHILS PERCENT AUTO 0 % (0-2); EOSINOPHILS ABSOLUTE AUTO 0.21 K/mm3 (0.00-0.68); EOSINOPHILS PERCENT AUTO 2 % (0-6); Hematocrit 34.7 % (33.0-51.0); Hemoglobin 11.4 g/dL (11.5-16.0); IMMATURE GRAN ABSOLUTE AUTO 0.04 K/mm3 (0.00-0.10); IMMATURE GRAN PERCENT AUTO 0 % (0-1); LYMPHOCYTES ABSOLUTE AUTO 1.22 K/mm3 (0.84-5.20); LYMPHOCYTES PERCENT AUTO 10 % (21-46); MONOCYTES ABSOLUTE AUTO 0.88 K/mm3 (0.16-1.47); MONOCYTES PERCENT AUTO 7 % (4-13); Mean Corpuscular HGB Conc 32.9 g/dL (31.5-36.5); Mean Corpuscular Volume 91 fL (80-100); NEUTROPHILS ABSOLUTE AUTO 10.34 K/mm3 (1.96-9.15); NEUTROPHILS PERCENT AUTO 81 % (41-73); Platelet Count 387 K/mm3 (150-400); RDW Coefficient Variation 11.6 % (11.7-14.2); White Blood Cell Count 12.73 K/mm3 (4.00-11.30)
[2021-05-13] MEDS ORDERED: BUPROPION XL150 M1 PO (18:09)
[2021-05-13] MEDS ORDERED: METHADONE HCL PO (18:10)
[2021-05-13] MEDS ORDERED: METH10 PO (18:10)
[2021-05-13] MEDS ORDERED: CONEST.625 PO (18:11)
[2021-05-13] MEDS ORDERED: NOVOLOG100 UNIT/2 (18:11)
[2021-05-13] MEDS ORDERED: GABAPENTIN600 MG PO (18:12)
[2021-05-13] MEDS ORDERED: Prinivil10 MG PO (18:12)
[2021-05-13] MEDS ORDERED: HYDCHL25 PO (18:12)
[2021-05-13] MEDS ORDERED: AMLODIPINE BESYL5 MG PO (18:12)
[2021-05-13] MEDS ORDERED: BUSPIRONE HCL PO (18:12)
[2021-05-13] MEDS ORDERED: TAMSULOSIN HCL0.4 M1 PO (18:13)
[2021-05-13] MEDS ORDERED: ROSUVASTATIN CA40 MG PO (18:13)
[2021-05-13 19:35] LABS: Albumin, Blood 3.4 g/dL (3.4-5.0); Albumin/Globulin Ratio 0.8 (0.8-1.8); Bilirubin, Total 0.4 mg/dL (0.1-1.0); Bun/Creatinine Ratio 20.7 (12.0-20.0); Calcium, Blood 9.6 mg/dL (8.5-10.1); Creatinine, Blood 1.5 mg/dL (0.40-1.00); Potassium, Blood 6.5 mmol/L (3.5-5.5); Total Protein, Blood 7.4 g/dL (6.4-8.2)
[2021-05-13 19:38] LABS: Beta-hydroxybutyrate 29.1 mg/dL (0.2-2.8); Magnesium, Blood 2.1 mg/dL (1.6-2.4)
[2021-05-13 21:51] LABS: Base Excess Venous -13.4 mmol/L; PO2 Venous 192 mmHg (38-42); pH Blood Venous 7.27 (7.34-7.37)
[2021-05-13 23:12] LABS: Magnesium, Blood 1.9 mg/dL (1.6-2.4)
[2021-05-13 23:34] LABS: Bun/Creatinine Ratio 22.2 (12.0-20.0); Calcium, Blood 9.1 mg/dL (8.5-10.1); Creatinine, Blood 1.58 mg/dL (0.40-1.00); Phosphorus, Blood 4.4 mg/dL (2.5-4.9)
[2021-05-14 02:17] LABS: Source, Urine Clean Catch
[2021-05-14 02:37] LABS: Bilirubin, Urine Neg (Neg); Blood, Urine Neg (Neg); Glucose Qualitative, Urine 4+ (Neg); Ketones, Urine 2+ (Neg); Leukocyte Esterase, Urine Neg (Neg); Nitrite, Urine Neg (Neg); Protein, Urine Neg (Neg); Urobilinogen, Urine NORM (Normal)
[2021-05-14 02:38] LABS: Appearance, Urine Clear (Clear); Color, Urine Pale Yellow (P-Yellow)
[2021-05-14 02:59] LABS: Bun/Creatinine Ratio 21.6 (12.0-20.0); Calcium, Blood 8.8 mg/dL (8.5-10.1); Creatinine, Blood 1.53 mg/dL (0.40-1.00)
[2021-05-14 05:37] LABS: Bun/Creatinine Ratio 19.9 (12.0-20.0); Calcium, Blood 9.3 mg/dL (8.5-10.1); Creatinine, Blood 1.66 mg/dL (0.40-1.00); Potassium, Blood 7.4 mmol/L (3.5-5.5)
[2021-05-14 06:32] LABS: Glucose, Blood 642 mg/dL (70-99)
[2021-05-14 07:13] LABS: Bun/Creatinine Ratio 19.5 (12.0-20.0); Calcium, Blood 9.6 mg/dL (8.5-10.1); Creatinine, Blood 1.74 mg/dL (0.40-1.00); Potassium, Blood 5.2 mmol/L (3.5-5.5)
[2021-05-14 09:10] LABS: Bun/Creatinine Ratio 20.1 (12.0-20.0); Calcium, Blood 9.3 mg/dL (8.5-10.1); Creatinine, Blood 1.79 mg/dL (0.40-1.00); Potassium, Blood 5.1 mmol/L (3.5-5.5)
[2021-05-14 09:45] LABS: SARS-Cov-2 (COVID-19) PCR, MMC NEGATIVE (NEGATIVE)
[2021-05-14 10:23] LABS: Bicarbonate Venous 21.3 mmol/L (24.0-30.0); PCO2 Venous 41.9 mmHg (38-42); pH Blood Venous 7.33 (7.34-7.37)
[2021-05-14 15:27] LABS: Bun/Creatinine Ratio 19.9 (12.0-20.0); Calcium, Blood 9.2 mg/dL (8.5-10.1); Creatinine, Blood 1.76 mg/dL (0.40-1.00); Potassium, Blood 4.4 mmol/L (3.5-5.5)
--- NOTE | 2021-05-14 15:36 | NUR ---
DR VIGIL CALLED AND INSTRUCTED TO TRY TO FEED PT TO ASSESS HOW WELL SHE TOLERATES FOOD. PT TOOK A FEW SIPS OF BROTH AND SAID SHE WAS TOO NAUSEATED. GAVE PT COMPAZINE, STATED IT DIDN'T HELP AND WANTED PHENERGAN. CALL TO DR CAMEJO AND DR VIGIL WHO INSTRUCTED NO PHENERGAN DUE TO DROWSINESS AND TO TRY AGAIN WITH CLEAR LIQUIDS AT DINNER. MAINTAINING GTT UNTIL THEN. DINKEY MECHANIC AWARE
--- NOTE | 2021-05-14 19:20 | NUR ---
ASSUMING PT CARE: PT SITTING UP IN BED, WATCHING TV, APPROPRIATELY INTERACTIVE W/ STAFF & ABLE TO ANSWER ASSESSMENT QUESTIONS. STS SHE HAS SOME MILD NAUSEA BUT NO OTHER COMPLAINTS. INSULIN GTT @ 2u/hr, D5 1/2NS @ 200ml/hr. VS STABLE. LAST CBG 150s, PREVIOUS RN HAS CONTACTED HOSPITALIST WHO IS PLACING ORDERS TO TRANSITION PT FROM INSULIN GTT TO SC. PT IS AGREEABLE & IN [employer] STS SHE IS LOOKING FORWARD TO GOING HOME. WILL CONTINUE TO MONITOR & REPORT APPROPRIATE.
--- NOTE | 2021-05-14 19:27 | NUR ---
SHIFT SUMMARY: PT ATE 10% DINNER AND TOLERATED A CUP OF BROTH. STATES SHE FEELS NAUSEATED BUT NO DIFFERENT THAN NORMAL. SPOKE WITH DR RUSS WHO STATED HE WAS PUTTING IN ORDERS AND CACULATING NEED FOR PT DUE TO NORMAL USE OF INSULIN PUMP. INSULIN GTT AT 2UNITS, D5 1/2 RUNNING ALSO. PT ASKING FOR FURTHER PAIN MEDS BUT LETHARGIC THIS SHIFT. DISCUSSED THIS WITH DR RUSS AND NO NEW ORDERS FOR PAIN MEDS AT THIS TIME.
--- NOTE | 2021-05-14 21:45 | NUR ---
ASSUMED CARE OF PATIENT. REPORT RECEIVED FROM MANUELITO DELGADO. IVF CHANGED TO NS PER MD ORDER. WILL RECHECK CBG AT 2200.
--- NOTE | 2021-05-14 23:53 | NUR ---
REPEAT 1 HOUR CBG 268, SO DR. BHAGAT ORDERS OT COVERAGE WITH MED SLIDING SCALE NOVOLOG. WILL RECHECK CBG IN 1 HOUR
--- NOTE | 2021-05-15 00:52 | NUR ---
REPORT GIVEN TO MANUELITO MG.
[2021-05-15 03:47] LABS: BASOPHILS ABSOLUTE AUTO 0.04 K/mm3 (0.00-0.23); BASOPHILS PERCENT AUTO 0 % (0-2); EOSINOPHILS ABSOLUTE AUTO 0.18 K/mm3 (0.00-0.68); EOSINOPHILS PERCENT AUTO 1 % (0-6); Hematocrit 24.2 % (33.0-51.0); IMMATURE GRAN ABSOLUTE AUTO 0.04 K/mm3 (0.00-0.10); IMMATURE GRAN PERCENT AUTO 0 % (0-1); LYMPHOCYTES ABSOLUTE AUTO 2.92 K/mm3 (0.84-5.20); LYMPHOCYTES PERCENT AUTO 20 % (21-46); MONOCYTES ABSOLUTE AUTO 0.85 K/mm3 (0.16-1.47); MONOCYTES PERCENT AUTO 6 % (4-13); Mean Corpuscular HGB 30.5 pg (26.0-34.0); Mean Corpuscular HGB Conc 33.1 g/dL (31.5-36.5); Mean Corpuscular Volume 92 fL (80-100); Mean Platelet Volume 9.5 fL (9.1-12.4); NEUTROPHILS ABSOLUTE AUTO 10.64 K/mm3 (1.96-9.15); NEUTROPHILS PERCENT AUTO 73 % (41-73); Platelet Count 271 K/mm3 (150-400); RDW Coefficient Variation 12.1 % (11.7-14.2); RDW Standard Deviation 41.1 fL (35.1-46.3); Red Blood Cell Count 2.62 M/mm3 (3.80-5.20); White Blood Cell Count 14.67 K/mm3 (4.00-11.30)
[2021-05-15 04:11] LABS: Bun/Creatinine Ratio 17.4 (12.0-20.0); Calcium, Blood 8.7 mg/dL (8.5-10.1); Creatinine, Blood 1.67 mg/dL (0.40-1.00)
--- NOTE | 2021-05-15 07:08 | NUR ---
SHIFT SUMMARY ASSUMED CARE OF PATIENT AT APPROXIMETLY 0045 FROM [place]. FOUND TO BE A DROWSY LADY WHO IS A&OX4 WITH SOME GEN WEAKNESS. VSS. ON RA. NSR ON THE MONITOR. SOME NAUSEA AND NOT EATING TOO MUCH AT THIS TIME. HYPOACTIVE BOWEL SOUNDS BUT PASSING GAS FINE. PRN COMPAZINE GIVEN X1 WITH SOME RELIEF. JARA PATENT DRAINING TO GRAVITY AND TO BE REMOVED THIS AM. SUGAR CHECKED X1 MORE HOUR WITH A 238 RESULT, UPDATED DR. BHAGAT, AND 9 UNITS TOTAL GIVEN FOR THIS. NOW ON ACHS BLOOD SUGAR CHECKS AND ALL FLUIDS OFF. NO PAIN OR DISTRESS NOTED UPON ASSESSMENT. REPORT GIVEN TO PIERRE AUSTIN IN PCU AND PATIENT TRANSFERRED TO PCU ROOM 12 AT APPROXIMETLY 0530 BY WHEELCHAIR. CARE ASSUMED BY PIERRE BILLINGS AND NO ADDTIONAL CONCERNS AT THIS TIME.
--- NOTE | 2021-05-15 08:11 | NUR ---
REPORT TO MANUELITO DENISE ON MEDICAL FLOOR TO ASSUME CARE.
[2021-05-15 09:55] LABS: Hematocrit 26.5 % (33.0-51.0); Hemoglobin 8.6 g/dL (11.5-16.0)
[2021-05-15 15:16] LABS: SARS-Cov-2 (COVID-19) PCR, MMC NEGATIVE (NEGATIVE)
--- NOTE | 2021-05-15 18:26 | NUR ---
SHIFT SUMMARY PCU TRANSFER THIS AM. PATIENT MEDICATED SCHEDULED FOR PAIN, DENIES NAUSEA, AND SHORTNESS OF BREATH. UP SBA TO CHAIR/BSC. EATING AND DRINKING WELL. CT OF ABDOMEN TODAY. PLEASANT AND COOPERATIVE WITH CARE.
--- NOTE | 2021-05-16 04:20 | NUR ---
RUBBER GOODS ASSEMBLER SUMMARY HAS BEEN RESTING QUIETLY WITH FEW INTERRUPTIONS SINCE HS. MED TELE REMAINS TACHY IN LOW 100'S. CBG'S MONITORED. SEE MAR FOR DETAILS OF COVERAGE. NO NOTED ACUTE DISTRESS. CALL LIGHT IN REACH
[2021-05-16 05:12] LABS: BASOPHILS ABSOLUTE AUTO 0.02 K/mm3 (0.00-0.23); BASOPHILS PERCENT AUTO 0 % (0-2); EOSINOPHILS ABSOLUTE AUTO 0.24 K/mm3 (0.00-0.68); EOSINOPHILS PERCENT AUTO 3 % (0-6); Hematocrit 24.6 % (33.0-51.0); Hemoglobin 7.8 g/dL (11.5-16.0); IMMATURE GRAN ABSOLUTE AUTO 0.02 K/mm3 (0.00-0.10); IMMATURE GRAN PERCENT AUTO 0 % (0-1); LYMPHOCYTES ABSOLUTE AUTO 1.72 K/mm3 (0.84-5.20); LYMPHOCYTES PERCENT AUTO 19 % (21-46); MONOCYTES ABSOLUTE AUTO 0.77 K/mm3 (0.16-1.47); MONOCYTES PERCENT AUTO 9 % (4-13); Mean Corpuscular HGB 29.5 pg (26.0-34.0); Mean Corpuscular HGB Conc 31.7 g/dL (31.5-36.5); Mean Corpuscular Volume 93 fL (80-100); Mean Platelet Volume 9.6 fL (9.1-12.4); NEUTROPHILS ABSOLUTE AUTO 6.32 K/mm3 (1.96-9.15); NEUTROPHILS PERCENT AUTO 70 % (41-73); Platelet Count 236 K/mm3 (150-400); RDW Coefficient Variation 11.9 % (11.7-14.2); RDW Standard Deviation 40.5 fL (35.1-46.3); Red Blood Cell Count 2.64 M/mm3 (3.80-5.20); White Blood Cell Count 9.09 K/mm3 (4.00-11.30)
[2021-05-16 11:56] LABS: Hemoglobin 8.4 g/dL (11.5-16.0)
[2021-05-16] MEDS ORDERED: METO10 PO (15:26)
[2021-05-16] MEDS ORDERED: BASAGLAR K100 UNIT/6 SC (15:28)
[2021-05-16] MEDS ORDERED: HUMALOG KW200 UNIT/2 SC (15:31)
[2021-05-16] MEDS ORDERED: HUMALOG KW100 UNIT/1 SC (15:33)
--- NOTE | 2021-05-16 17:11 | NUR ---
DISCHARGE DISCHARGE MEDICATIONS AND INSTRUCTIONS EXPLAINED TO PATIENT AND CAREGIVER. EDUCATION AND HANDS ON INSTRUCTION IN USE OF INSULIN PEN GIVEN. CENTRAL LINE DC'D BY TICKET COUNTER. MAREK REMOVED. BELONGINGS WITH PATIENT. PATIENT TRANSFERED TO PRIVATE VEHICLE VIA WHEELCHAIR.
== END 2021-05-16 17:15 | disposition home or self-care (01) | DRG 919 ==
LOC: ER 17:32 → ICUE 21:56 → ERHOLD 21:56 → ER 21:56 → ICUE 05-14 09:17 → PCU 05-15 05:54 → MEDS 05-15 09:13
PROVIDERS: Emergency Medicine; Family Medicine; Hospitalist; Internal Medicine; ADMIT Internal Medicine
PROC: 02HV33Z Insertion of Infusion Device into Superior Vena Cava, Percutaneous Approach (ICD-10-PCS; principal; 2021-05-14)
DX: T85.694A Other mechanical complication of insulin pump, initial encounter (principal); E11.10 Type 2 diabetes mellitus with ketoacidosis without coma; I47.2 Ventricular tachycardia; E87.1 Hypo-osmolality and hyponatremia; F11.20 Opioid dependence, uncomplicated; G93.40 Encephalopathy, unspecified; I12.9 Hypertensive chronic kidney disease with stage 1 through stage 4 chronic kidney disease, or unspecified chronic kidney disease; E78.5 Hyperlipidemia, unspecified; E11.43 Type 2 diabetes mellitus with diabetic autonomic (poly)neuropathy; E87.6 Hypokalemia; E11.22 Type 2 diabetes mellitus with diabetic chronic kidney disease; Z60.2 Problems related to living alone; G89.29 Other chronic pain; K31.84 Gastroparesis; E87.5 Hyperkalemia; E66.9 Obesity, unspecified; N18.30 Chronic kidney disease, stage 3 unspecified; R33.8 Other retention of urine; M79.7 Fibromyalgia; Z96.612 Presence of left artificial shoulder joint; Z90.710 Acquired absence of both cervix and uterus; Z98.890 Other specified postprocedural states; Z79.4 Long term (current) use of insulin; Z79.899 Other long term (current) drug therapy; Y83.8 Other surgical procedures as the cause of abnormal reaction of the patient, or of later complication, without mention of misadventure at the time of the procedure; Z68.32 Body mass index [BMI] 32.0-32.9, adult
CPT/HCPCS: 36415; 36556; 74176; 76705; 80048; 80053; 81003; 82010; 82803; 82947; 83690; 83735; 84100; 85014; 85018; 85025; 93005; 93010; 94640; 94760; 96361-59; 96374-59; 96375-59; 99285-25; A9270; C1751; J0282; J0610; J0780; J1650; J1815; J2550; J2765; J3475; J7030; J7042; J7060; U0004

== ENCOUNTER → 2021-05-21 | Outpatient (CLI) | payer OTHER ==
[~2021-05-21] MED LIST changes: +AMLODIPINE BESYL5 MG PO; +BASAGLAR K100 UNIT/6 SC; +BUPROPION XL150 M1 PO; +BUSPIRONE HCL PO; +GABAPENTIN600 MG PO; +HUMALOG KW100 UNIT/1 SC; +HUMALOG KW200 UNIT/2 SC; +METHADONE HCL PO; +ROSUVASTATIN CA40 MG PO; +TAMSULOSIN HCL0.4 M1 PO
[2021-05-21 13:55] LABS: Source, Urine Clean Catch
[2021-05-21 14:45] LABS: Appearance, Urine Hazy (Clear); Bilirubin, Urine Neg (Neg); Blood, Urine 3+ (Neg); Color, Urine Yellow (P-Yellow); Glucose Qualitative, Urine Neg (Neg); Ketones, Urine Neg (Neg); Leukocyte Esterase, Urine 3+ (Neg); Nitrite, Urine Neg (Neg); Protein, Urine 2+ (Neg); Urobilinogen, Urine NORM (Normal)
[2021-05-21 14:54] LABS: Bacteria Many /hpf; Squamous Epithelial Cells Few /hpf (Few); White Blood Cells, Urine TNTC /hpf (0-5)
== END | disposition home or self-care (01) ==
LOC: OLS 13:53 → LAB SHORT 13:53 → LAB FUT 05-20 15:40
PROVIDERS: Nurse Practitioner Family
DX: R30.0 Dysuria (principal); R35.0 Frequency of micturition
CPT/HCPCS: 81001; 87077; 87086; 87186

== ENCOUNTER → 2021-05-22 | Outpatient (CLI) | payer OTHER | END | disposition home or self-care (01) | LOC: LAB SHORT 17:10 → LAB 17:10 | DX: R30.0 Dysuria (principal) | CPT/HCPCS: 87077; 87086; 87186 ==

== ENCOUNTER → 2021-07-30 | Outpatient (CLI) | payer OTHER ==
[2021-07-30 19:58] LABS: Appearance, Urine Clear (Clear); Bilirubin, Urine Neg (Neg); Blood, Urine Neg (Neg); Color, Urine Yellow (P-Yellow); Glucose Qualitative, Urine 4+ (Neg); Ketones, Urine Neg (Neg); Leukocyte Esterase, Urine Neg (Neg); Nitrite, Urine Neg (Neg); Protein, Urine Neg (Neg); Urobilinogen, Urine NORM (Normal)
== END ==
LOC: LAB SHORT 17:38
PROVIDERS: Registered Nurse
DX: R30.0 Dysuria (principal); R35.0 Frequency of micturition
CPT/HCPCS: 81003

== ENCOUNTER 2021-08-17 08:53 | Inpatient (IN) | payer OTHER ==
[~2021-08-17] VITALS: Ht 177.8 cm; Wt 99.8 kg
[~2021-08-17 08:53] MED LIST changes: -AMLODIPINE BESYL5 MG PO; -BASAGLAR K100 UNIT/6 SC; -BUPROPION XL150 M1 PO; -BUSPIRONE HCL PO; -HUMALOG KW100 UNIT/1 SC; -METHADONE HCL PO; -ROSUVASTATIN CA40 MG PO
[2021-08-17 11:10] LABS: Bicarbonate Venous 17.4 mmol/L (24.0-30.0); PCO2 Venous 32.1 mmHg (38-42); pH Blood Venous 7.31 (7.34-7.37)
[2021-08-17 11:19] LABS: BASOPHILS ABSOLUTE AUTO 0.04 K/mm3 (0.00-0.23); BASOPHILS PERCENT AUTO 0 % (0-2); EOSINOPHILS ABSOLUTE AUTO 0.05 K/mm3 (0.00-0.68); EOSINOPHILS PERCENT AUTO 0 % (0-6); Hematocrit 39.9 % (33.0-51.0); Hemoglobin 12.7 g/dL (11.5-16.0); IMMATURE GRAN ABSOLUTE AUTO 0.05 K/mm3 (0.00-0.10); IMMATURE GRAN PERCENT AUTO 0 % (0-1); LYMPHOCYTES ABSOLUTE AUTO 0.56 K/mm3 (0.84-5.20); LYMPHOCYTES PERCENT AUTO 4 % (21-46); MONOCYTES ABSOLUTE AUTO 0.74 K/mm3 (0.16-1.47); MONOCYTES PERCENT AUTO 5 % (4-13); Mean Corpuscular HGB 28.9 pg (26.0-34.0); Mean Corpuscular HGB Conc 31.8 g/dL (31.5-36.5); Mean Corpuscular Volume 91 fL (80-100); NEUTROPHILS ABSOLUTE AUTO 12.47 K/mm3 (1.96-9.15); NEUTROPHILS PERCENT AUTO 90 % (41-73); RDW Coefficient Variation 12.7 % (11.7-14.2); RDW Standard Deviation 41.6 fL (35.1-46.3); Red Blood Cell Count 4.39 M/mm3 (3.80-5.20); White Blood Cell Count 13.91 K/mm3 (4.00-11.30)
[2021-08-17 11:42] LABS: Albumin, Blood 3.6 g/dL (3.4-5.0); Albumin/Globulin Ratio 0.8 (0.8-1.8); Bilirubin, Total 0.4 mg/dL (0.1-1.0); Bun/Creatinine Ratio 20.5 (12.0-20.0); Creatinine, Blood 1.51 mg/dL (0.40-1.00); Globulin, Blood 4.7 g/dL (2.2-4.0); Potassium, Blood 5.4 mmol/L (3.5-5.5); Total Protein, Blood 8.3 g/dL (6.4-8.2)
[2021-08-17 11:44] LABS: Mean Platelet Volume 10.7 fL (9.1-12.4); Platelet Count 303 K/mm3 (150-400)
[2021-08-17] MEDS ORDERED: FLUTICASONE PRO16 GM (12:28)
[2021-08-17] MEDS ORDERED: ATEN25 PO (12:28)
[2021-08-17] MEDS ORDERED: Phenergan25 M1 PO (12:29)
[2021-08-17] MEDS ORDERED: BUPROPION XL150 M1 PO (12:30)
[2021-08-17] MEDS ORDERED: CONEST.625 PO (12:30)
[2021-08-17] MEDS ORDERED: METO10 PO (12:31)
[2021-08-17] MEDS ORDERED: HYDCHL25 PO (12:31)
[2021-08-17] MEDS ORDERED: NOVOLOG FL100 UNIT/3 SC (12:32)
[2021-08-17] MEDS ORDERED: ROSUVASTATIN CA40 MG PO (12:33)
[2021-08-17] MEDS ORDERED: METH10 PO (12:34)
[2021-08-17] MEDS ORDERED: AMLODIPINE BESYL5 MG PO (12:35)
[2021-08-17] MEDS ORDERED: BUSPIRONE HCL PO (12:35)
[2021-08-17] MEDS ORDERED: Prinivil10 MG PO (12:36)
[2021-08-17] MEDS ORDERED: DULOXETINE HCL60 M1 PO (12:36)
[2021-08-17 13:47] LABS: Source, Urine Clean Catch
[2021-08-17 13:51] LABS: Appearance, Urine Clear (Clear); Bilirubin, Urine Neg (Neg); Blood, Urine 4+ (Neg); Color, Urine Yellow (P-Yellow); Glucose Qualitative, Urine 4+ (Neg); Ketones, Urine 4+ (Neg); Leukocyte Esterase, Urine Neg (Neg); Nitrite, Urine Neg (Neg); Protein, Urine Neg (Neg); Urobilinogen, Urine NORM (Normal)
[2021-08-17 14:02] LABS: Bacteria Few /hpf; Squamous Epithelial Cells Few /hpf (Few); White Blood Cells, Urine 0-2 /hpf (0-5)
[2021-08-17 16:37] LABS: Bun/Creatinine Ratio 19.3 (12.0-20.0); Calcium, Blood 8.5 mg/dL (8.5-10.1); Creatinine, Blood 1.35 mg/dL (0.40-1.00); Potassium, Blood 4.5 mmol/L (3.5-5.5)
[2021-08-17] MEDS ORDERED: ASPIR 8181 M1 PO (17:04)
[2021-08-17] MEDS ORDERED: METHADONE HCL PO (17:05)
--- NOTE | 2021-08-17 21:06 | NUR ---
ADMIT NOTE HANDOFF RECEIVED FROM AUTOMOBILE GLASS TECHNICIANMANUELITO FUENTES. PT TRANSFERED TO FLOOR VIA RCEDRICK. PERSONAL POSESSIONS WITH PT. CALL BUTTON WITHIN REACH. PT ORIENTED TO UNIT.
[2021-08-17 22:40] LABS: Bun/Creatinine Ratio 16.2 (12.0-20.0); Calcium, Blood 8.7 mg/dL (8.5-10.1); Creatinine, Blood 1.42 mg/dL (0.40-1.00); Potassium, Blood 4.1 mmol/L (3.5-5.5)
--- NOTE | 2021-08-18 04:20 | NUR ---
SHIFT SUMMARY ADMITTED THIS SHIFT FOR DKA. FULL CODE. TELEMETRY: TACHY @ 109 BPM. LR INFUSING ORDERED. SHE IS ACHS, MED SS. SHE DID STATE SHE HAD NAUSEA, REGLAN & ZOFRAN GIVEN. SHE DID NOT VOMIT THIS SHIFT. ADA DIET. SEMGLEE GIVEN ORDERED. SHE IS A STANDBY ASSIST - BRP.
[2021-08-18 05:15] LABS: Hematocrit 32.6 % (33.0-51.0); Hemoglobin 10.4 g/dL (11.5-16.0); Mean Corpuscular HGB 28.5 pg (26.0-34.0); Mean Corpuscular HGB Conc 31.9 g/dL (31.5-36.5); Mean Corpuscular Volume 89 fL (80-100); Mean Platelet Volume 9.4 fL (9.1-12.4); Platelet Count 263 K/mm3 (150-400); RDW Coefficient Variation 12.4 % (11.7-14.2); RDW Standard Deviation 40.7 fL (35.1-46.3); Red Blood Cell Count 3.65 M/mm3 (3.80-5.20); White Blood Cell Count 10.36 K/mm3 (4.00-11.30)
[2021-08-18 06:18] LABS: Bun/Creatinine Ratio 14.6 (12.0-20.0); Calcium, Blood 8.8 mg/dL (8.5-10.1); Creatinine, Blood 1.23 mg/dL (0.40-1.00); Magnesium, Blood 1.5 mg/dL (1.6-2.4); Potassium, Blood 4.5 mmol/L (3.5-5.5)
--- NOTE | 2021-08-18 16:53 | NUR ---
DAY SHIFT SUMMARY IV FLUIDS ADMINISTERED, MEDS REVIEWED AND CHANGED BY , PT INDEPENDENT IN ROOM, ABLE TO GET SELF INTO SHOWER, RECEIVED VISITORS TODAY, STATES NAUSEA LESSENING.
[2021-08-18 17:04] LABS: Albumin, Blood 2.7 g/dL (3.4-5.0); Anion Gap 7 mmol/L (6-16); Blood Urea Nitrogen 18 mg/dL (8-24); CO2, Blood 28 mmol/L (21-32); Chloride, Blood 101 mmol/L (98-108); Creatinine, Blood 1.29 mg/dL (0.40-1.00); Glomerular Filtration Rate 41 (60-); Glucose, Blood 252 mg/dL (70-99); Magnesium, Blood 2.2 mg/dL (1.6-2.4); Phosphorus, Blood 3.2 mg/dL (2.5-4.9); Potassium, Blood 4.6 mmol/L (3.5-5.5); Sodium, Blood 136 mmol/L (136-145)
[2021-08-18] MEDS ORDERED: PROM25 PO (18:50)
--- NOTE | 2021-08-18 19:21 | NUR ---
DISCHARGE DISCHARGE MEDICATIONS AND INSTRUCTIONS EXPLAINED TO PATIENT. BREN STATED UNDERSTANDING. NEW PRESCRIPTIONS CALLED INTO PHARMACY. IV REMOVED WITHOUT ISSUE. BELONGINGS WITH PATIENT. PATIENT TRANSFERED TO PRIVATE VEHICLE VIA WHEELCHAIR.
--- NOTE | 2021-08-19 10:25 | NUR ---
Received referral from nurse direct care professional (Elder Arias) on 08/18/2021. Patient discharged yesterday- 08/18/2021 and was to have orders for home health and elected [facility]. Unfortunately no home health orders were written at discharge. No further interventions required. Freida Fernández Referral Liaison
== END 2021-08-18 18:55 | disposition home or self-care (01) | DRG 638 ==
LOC: ER 08:53 → ICUW 14:28 → MEDS 21:02
PROVIDERS: Internal Medicine; Nurse Practitioner Acute Care; Physician Assistant; ADMIT Internal Medicine
DX: E11.10 Type 2 diabetes mellitus with ketoacidosis without coma (principal); T85.694A Other mechanical complication of insulin pump, initial encounter; R65.10 Systemic inflammatory response syndrome (SIRS) of non-infectious origin without acute organ dysfunction; E86.0 Dehydration; N18.30 Chronic kidney disease, stage 3 unspecified; E11.22 Type 2 diabetes mellitus with diabetic chronic kidney disease; E78.5 Hyperlipidemia, unspecified; I10 Essential (primary) hypertension; F41.9 Anxiety disorder, unspecified; M79.7 Fibromyalgia; Z90.710 Acquired absence of both cervix and uterus; Z96.612 Presence of left artificial shoulder joint; Z79.899 Other long term (current) drug therapy; E11.43 Type 2 diabetes mellitus with diabetic autonomic (poly)neuropathy; K31.84 Gastroparesis
CPT/HCPCS: 36415; 71046; 80048; 80053; 80069; 81001; 82010; 82803; 82947; 83735; 85025; 85027; 93005; 93010; 96361; 96374; 96376; 99285-25; A9270; J1644; J1815; J2405; J2550; J2765; J3475; J7030; J7120

== ENCOUNTER 2021-12-24 12:39 | Emergency (ER) | payer OTHER ==
[~2021-12-24] VITALS: Ht 177.8 cm; Wt 102.1 kg
[~2021-12-24 12:39] MED LIST changes: +AMLODIPINE BESYL5 MG PO; +ASPIR 8181 M1 PO; +BUPROPION XL150 M1 PO; +BUSPIRONE HCL PO; +DULOXETINE HCL60 M1 PO; +FLUTICASONE PRO16 GM; +METHADONE HCL PO; +NOVOLOG FL100 UNIT/3 SC; +Phenergan25 M1 PO; +ROSUVASTATIN CA40 MG PO
[2021-12-24 13:15] LABS: BASOPHILS ABSOLUTE AUTO 0.04 K/mm3 (0.00-0.23); BASOPHILS PERCENT AUTO 0 % (0-2); EOSINOPHILS PERCENT AUTO 2 % (0-6); Hematocrit 45.5 % (33.0-51.0); Hemoglobin 14.9 g/dL (11.5-16.0); IMMATURE GRAN ABSOLUTE AUTO 0.02 K/mm3 (0.00-0.10); IMMATURE GRAN PERCENT AUTO 0 % (0-1); LYMPHOCYTES ABSOLUTE AUTO 1.26 K/mm3 (0.84-5.20); LYMPHOCYTES PERCENT AUTO 14 % (21-46); MONOCYTES ABSOLUTE AUTO 0.61 K/mm3 (0.16-1.47); MONOCYTES PERCENT AUTO 7 % (4-13); Mean Corpuscular HGB 29.6 pg (26.0-34.0); Mean Corpuscular HGB Conc 32.7 g/dL (31.5-36.5); Mean Corpuscular Volume 91 fL (80-100); Mean Platelet Volume 9.8 fL (9.1-12.4); NEUTROPHILS ABSOLUTE AUTO 6.91 K/mm3 (1.96-9.15); NEUTROPHILS PERCENT AUTO 77 % (41-73); Platelet Count 344 K/mm3 (150-400); RDW Coefficient Variation 11.8 % (11.7-14.2); RDW Standard Deviation 38.9 fL (35.1-46.3); Red Blood Cell Count 5.03 M/mm3 (3.80-5.20); White Blood Cell Count 9.04 K/mm3 (4.00-11.30)
[2021-12-24 13:48] LABS: Albumin, Blood 3.5 g/dL (3.4-5.0); Albumin/Globulin Ratio 0.8 (0.8-1.8); Bilirubin, Total 0.3 mg/dL (0.1-1.0); Bun/Creatinine Ratio 22.7 (12.0-20.0); Calcium, Blood 9.8 mg/dL (8.5-10.1); Creatinine, Blood 1.28 mg/dL (0.40-1.00); Globulin, Blood 4.2 g/dL (2.2-4.0); Potassium, Blood 4.6 mmol/L (3.5-5.5); Total Protein, Blood 7.7 g/dL (6.4-8.2)
[2021-12-24] MEDS ORDERED: VALA500 PO (16:20)
[2021-12-24] MEDS ORDERED: ERYT.5TO LEFTEYE (16:20)
== END 2021-12-24 16:34 | disposition home or self-care (01) ==
LOC: ER 12:39
PROVIDERS: Physician Assistant
DX: H18.892 Other specified disorders of cornea, left eye (principal); I12.9 Hypertensive chronic kidney disease with stage 1 through stage 4 chronic kidney disease, or unspecified chronic kidney disease; E11.22 Type 2 diabetes mellitus with diabetic chronic kidney disease; N18.30 Chronic kidney disease, stage 3 unspecified; E78.5 Hyperlipidemia, unspecified; Z79.899 Other long term (current) drug therapy; Z79.4 Long term (current) use of insulin; Z79.82 Long term (current) use of aspirin
CPT/HCPCS: 36415; 70450; 80053; 85025; 85651; 99284-25; A9270

== ENCOUNTER 2023-10-15 07:39 | Inpatient (IN) | payer OTHER ==
[~2023-10-15] VITALS: Ht 177.8 cm; Wt 111.9 kg
[~2023-10-15 07:39] MED LIST changes: +ATEN50 PO; +ERYT.5TO LEFTEYE; +ONDA4ODT SL
[2023-10-15 09:41] LABS: BASOPHILS ABSOLUTE AUTO 0.04 K/mm3 (0.00-0.23); BASOPHILS PERCENT AUTO 0 % (0-2); EOSINOPHILS PERCENT AUTO 0 % (0-6); Hematocrit 34.8 % (33.0-51.0); Hemoglobin 11.9 g/dL (11.5-16.0); IMMATURE GRAN ABSOLUTE AUTO 0.07 K/mm3 (0.00-0.10); IMMATURE GRAN PERCENT AUTO 0 % (0-1); LYMPHOCYTES ABSOLUTE AUTO 1.08 K/mm3 (0.84-5.20); LYMPHOCYTES PERCENT AUTO 6 % (21-46); MONOCYTES ABSOLUTE AUTO 0.94 K/mm3 (0.16-1.47); MONOCYTES PERCENT AUTO 5 % (4-13); Mean Corpuscular HGB 29.9 pg (26.0-34.0); Mean Corpuscular HGB Conc 34.2 g/dL (31.5-36.5); Mean Corpuscular Volume 87 fL (80-100); Mean Platelet Volume 9.5 fL (9.1-12.4); NEUTROPHILS ABSOLUTE AUTO 16.57 K/mm3 (1.96-9.15); NEUTROPHILS PERCENT AUTO 89 % (41-73); Platelet Count 433 K/mm3 (150-400); RDW Coefficient Variation 11.9 % (11.7-14.2); RDW Standard Deviation 38.3 fL (35.1-46.3); Red Blood Cell Count 3.98 M/mm3 (3.80-5.20)
[2023-10-15 10:31] LABS: Albumin, Blood 3.3 g/dL (3.4-5.0); Albumin/Globulin Ratio 0.7 (0.8-1.8); Beta-hydroxybutyrate 26.3 mg/dL (0.2-2.8); Bilirubin, Total 0.4 mg/dL (0.1-1.0); Bun/Creatinine Ratio 15.6 (12.0-20.0); Calcium, Blood 9.9 mg/dL (8.5-10.1); Creatinine, Blood 1.41 mg/dL (0.40-1.00); Globulin, Blood 4.9 g/dL (2.2-4.0); Potassium, Blood 4.2 mmol/L (3.5-5.5); Total Protein, Blood 8.2 g/dL (6.4-8.2)
[2023-10-15 10:50] LABS: Base Excess Venous 0.5 mmol/L; Bicarbonate Venous 24.6 mmol/L (24.0-30.0); PCO2 Venous 43.8 mmHg (38-42); pH Blood Venous 7.38 (7.34-7.37)
[2023-10-15 12:48] LABS: Source, Urine Clean Catch
[2023-10-15 12:53] LABS: Appearance, Urine Clear (Clear); Bilirubin, Urine Neg (Neg); Blood, Urine 4+ (Neg); Color, Urine Yellow (P-Yellow); Glucose Qualitative, Urine 3+ (Neg); Ketones, Urine 2+ (Neg); Leukocyte Esterase, Urine Neg (Neg); Nitrite, Urine Neg (Neg); Protein, Urine 3+ (Neg); Specific Gravity, Urine 1.015 (1.003-1.022); Urobilinogen, Urine NORM (Normal)
[2023-10-15 13:02] LABS: Granular Casts 0-2 /lpf (0)
[2023-10-15 13:03] LABS: Bacteria Few /hpf; Red Blood Cells, Urine 0-2 /hpf (0-2); Squamous Epithelial Cells Mod /hpf (Few); White Blood Cells, Urine 0-2 /hpf (0-5)
[2023-10-15 13:42] LABS: Influenza A, PCR NEGATIVE (NEGATIVE); Influenza B, PCR NEGATIVE (NEGATIVE); Resp Syncytial Virus, PCR NEGATIVE (NEGATIVE); SARS-Cov-2 (COVID-19) PCR, MMC NEGATIVE (NEGATIVE)
[2023-10-15 19:38] VITALS: BP 182/83
[2023-10-15 20:38] VITALS: BP 140/80
--- NOTE | 2023-10-15 22:53 | NUR ---
PT HS CBG 440 PT HAS INSULIN PUMP AND GAVE BOLUS OF 4.5 UNITS QUICK ACTING INSULIN. RECHECK AND CBG 403 AND HOSPITALIST NOTIFIED. ORDER FOR REGULAR INSULIN 10 UNITS SC GIVEN AND TO RECHECK BLOOD GLUCOSE IN 2 HOURS.
[2023-10-16 01:10] LABS: BASOPHILS ABSOLUTE AUTO 0.03 K/mm3 (0.00-0.23); BASOPHILS PERCENT AUTO 0 % (0-2); EOSINOPHILS PERCENT AUTO 0 % (0-6); Hemoglobin 11.7 g/dL (11.5-16.0); IMMATURE GRAN ABSOLUTE AUTO 0.07 K/mm3 (0.00-0.10); IMMATURE GRAN PERCENT AUTO 0 % (0-1); LYMPHOCYTES ABSOLUTE AUTO 1.25 K/mm3 (0.84-5.20); LYMPHOCYTES PERCENT AUTO 7 % (21-46); MONOCYTES ABSOLUTE AUTO 1.44 K/mm3 (0.16-1.47); MONOCYTES PERCENT AUTO 8 % (4-13); Mean Corpuscular HGB 29.7 pg (26.0-34.0); Mean Corpuscular HGB Conc 33.4 g/dL (31.5-36.5); Mean Corpuscular Volume 89 fL (80-100); Mean Platelet Volume 9.3 fL (9.1-12.4); NEUTROPHILS ABSOLUTE AUTO 15.48 K/mm3 (1.96-9.15); NEUTROPHILS PERCENT AUTO 85 % (41-73); Platelet Count 386 K/mm3 (150-400); RDW Coefficient Variation 11.9 % (11.7-14.2); RDW Standard Deviation 38.5 fL (35.1-46.3); Red Blood Cell Count 3.94 M/mm3 (3.80-5.20); White Blood Cell Count 18.27 K/mm3 (4.00-11.30)
[2023-10-16 01:28] LABS: Bun/Creatinine Ratio 14.5 (12.0-20.0); Calcium, Blood 8.7 mg/dL (8.5-10.1); Creatinine, Blood 1.31 mg/dL (0.40-1.00); Potassium, Blood 4.1 mmol/L (3.5-5.5)
[2023-10-16 04:45] VITALS: BP 164/75
[2023-10-16 05:57] VITALS: BP 147/79
--- NOTE | 2023-10-16 06:07 | NUR ---
SHIFT SUMMARY NOC PT A/O X 4. PLEASANT AND COOPERATIVE WITH CARE. PT HAS INSULIN PUMP IN PLACE, BUT DOES NOT KNOW SETTINGS. PT HAD CBG 440 AND SELF ADMINISTERED 4.5 UNIT BOLUS, ON RECHECK CBG 403 AND PT TOLD NOT TO ADMINSTER FROM INSULIN PUMP. HOSPITALIST CALLED AND REGULAR INSULIN 10 UNITS GIVEN AND ON RECHECK CBG 261. PT HAS BEEN HYPERTENSIVE AND TACHYCARDIC AND MEDICTED X 2 WITH IV LABETOLOL WITH DESIRED EFFECT. PT ON TELE RUNNING SINUS TACHYCARDIA IN LOW 100'S. PT IS CURRENTLY RESTING WITH BED IN LOWEST POSITION AND CALL LIGHT WITHIN REACH.
[2023-10-16 07:13] VITALS: BP 162/77
--- NOTE | 2023-10-16 13:56 | NUR ---
Upon receiving a referral for spiritual care, I visited the patient. She tells me about her medical complications, her SO Narciso and their unique relationship and about her strong Advent beliefs. She was experincing nausea and so I cut my visit short but not before providing therapeutic listening and prayer. PAtient voices her deep appreciation for the prayer and states that she is sure that the prayer was and will be the highlight of her day." I will continue to remain available to patient and family.
[2023-10-16 16:55] VITALS: BP 123/59
[2023-10-16 19:25] VITALS: BP 134/83
--- NOTE | 2023-10-16 19:58 | NUR ---
SHIFT SUMMARY: SAMMY IS A&OX4. VSS, NO ACUTE EVENTS THIS SHIFT. PT AGREED TO DISCONTINUE USE OF HER INSULIN PUMP WHILE IN THE HOSPITAL DUE TO POOR BLOOD SUGAR CONTROL AN OUTPATIENT. PT IS TOLERATING PO INTAKE WELL, BUT STILL REPORTS NAUSEA, MEDICATED PER MAR. SHE IS INDEPENDENT IN THE ROOM, CONTINENT OF BLADDER AND BOWEL, AND USES THE CALL LIGHT APPROPRIATELY. SHE REPORTS ADEQUATE PAIN CONTROL WITH MEDICATIONS PER MAR. SHE IS LYING IN BED WITH THE CALL LIGHT IN REACH. REPORT WAS GIVEN TO DEVELOPMENT ANALYST RN.
[2023-10-17 04:22] VITALS: BP 148/74
--- NOTE | 2023-10-17 04:47 | NUR ---
SHIFT SUMMARY PT IS A&O X4, CALM AND COOPERATIVE WITH CARE. CURYUNG. NO VOMITING THIS SHIFT. PT DID HAD AN EPISODE OF NAUSEA WHICH SHE WAS MEDICATED FOR PER EMAR. PT STATES HER NAUSEA IS CONTROLLED. PT TOLERATED A SANDWICH AT DINNER LAST NIGHT VS CLEAR FLUIDS. PT TOLERATED. PT DISCONTINUED USE OF HER INSULIN PUMP YESTERDAY DUE UNADEQUATE CONTROL. HS BS 172. GLARGINE 20 UNITS GIVEN PER EMAR SCHEDULE. NO ACUTE EVENTS OVERNIGHT. PT IND IN ROOM. CONTINENT OF BOWEL AND BLADDER. TELE: SR @ 06. VITALS REVEIWED. BED IN LOWEST POSITION WITH CALL LIGHT WITHIN REACH. WILL CONTINUE TO MONITOR.
[2023-10-17 05:59] LABS: Bun/Creatinine Ratio 13.3 (12.0-20.0); Calcium, Blood 8.2 mg/dL (8.5-10.1); Creatinine, Blood 1.73 mg/dL (0.40-1.00); Potassium, Blood 4.5 mmol/L (3.5-5.5)
[2023-10-17 07:25] VITALS: BP 149/74
[2023-10-17 07:41] LABS: BASOPHILS ABSOLUTE AUTO 0.02 K/mm3 (0.00-0.23); BASOPHILS PERCENT AUTO 0 % (0-2); EOSINOPHILS ABSOLUTE AUTO 0.11 K/mm3 (0.00-0.68); EOSINOPHILS PERCENT AUTO 1 % (0-6); Hematocrit 35.2 % (33.0-51.0); Hemoglobin 11.4 g/dL (11.5-16.0); IMMATURE GRAN ABSOLUTE AUTO 0.02 K/mm3 (0.00-0.10); IMMATURE GRAN PERCENT AUTO 0 % (0-1); LYMPHOCYTES ABSOLUTE AUTO 1.66 K/mm3 (0.84-5.20); LYMPHOCYTES PERCENT AUTO 21 % (21-46); MONOCYTES ABSOLUTE AUTO 0.91 K/mm3 (0.16-1.47); MONOCYTES PERCENT AUTO 11 % (4-13); Mean Corpuscular HGB 29.7 pg (26.0-34.0); Mean Corpuscular HGB Conc 32.4 g/dL (31.5-36.5); Mean Corpuscular Volume 92 fL (80-100); Mean Platelet Volume 9.6 fL (9.1-12.4); NEUTROPHILS ABSOLUTE AUTO 5.39 K/mm3 (1.96-9.15); NEUTROPHILS PERCENT AUTO 67 % (41-73); Platelet Count 339 K/mm3 (150-400); RDW Coefficient Variation 11.9 % (11.7-14.2); RDW Standard Deviation 40.3 fL (35.1-46.3); Red Blood Cell Count 3.84 M/mm3 (3.80-5.20); White Blood Cell Count 8.11 K/mm3 (4.00-11.30)
[2023-10-17] MEDS ORDERED: OXYC10TA19 PO ×2 (10:50)
[2023-10-17 17:12] VITALS: BP 134/61
--- NOTE | 2023-10-17 18:26 | NUR ---
SHIFT SUMMARY: PT A&O X4. PLEASANT AND COOPERATIVE WITH ALL CARE. PT STATES SHE IS FEELING MUCH BETTER THIS SHOFT. NAUSEA STILL THERE BUT ABLE TO EAT MEALS W/O COMPLICATIONS. PT HAD POSITIVE BLOOD CULTURES OF GRAM NEGATIVE BACILI. DR. SEGUNDO NOTIFIED AND PLACED ORDERS FOR IV ABX. POWERGLIDE PLACED IN JEREMY D/T LAC IV LEAKING. PT HAD ONE 5 BEAT RUN OF SVT IN 150'S-160'S. NO OTHER TELE EVENTS THIS SHIFT. PT BS THIS AM 379. DR. SEGUNDO ADJUSTED INSULIN REGIMEN. BS PRIOR TO DINNER OF 74. PT CURRENTLY EATING DINNER W/O COMPLAINTS. CALL LIGHT IN REACH. BED IN LOWEST POSITION. WILL REPORT TO ONCOMING RN.
[2023-10-17 19:53] VITALS: BP 145/56
[2023-10-18 04:28] VITALS: BP 144/59
--- NOTE | 2023-10-18 05:10 | NUR ---
SHIFT SYMMARY VSS, TELE READS SR 62. PT SLEPT WELL T/O THE NIGHT. TOLLERATING CLEAR FLUID INTAKE W/O N/V. PT MEDICATED ONCE FOR NAUSEA, NO EMESIS NOTED. PT REPORTS PRIOR EMESIS HAS BEEN BRIGHT GREEN AND LIQUID. NO VOID NOTED YET, PT REPORTS IT IS NOT UNCOMMON TO GO ALL NIGHT AND INTO THE SHADE CLOTH FINISHER W/O VOIDING. PLAN TO BLADDER SCAN IF PT DOES NOT ATTEMPT TO VOID DURING NEXT ROUND. MEDICATED FOR PAIN W/SCHEDULED MEDICATION. TOLLERABLE RESULTS NOTED. BLOOD SUGARS HAVE BEEN MANAGEABLE T/O THE NIGHT. OTHERWISE, NO ACUTE EVENTS NOTED
[2023-10-18 05:15] LABS: BASOPHILS ABSOLUTE AUTO 0.03 K/mm3 (0.00-0.23); BASOPHILS PERCENT AUTO 0 % (0-2); EOSINOPHILS ABSOLUTE AUTO 0.24 K/mm3 (0.00-0.68); EOSINOPHILS PERCENT AUTO 3 % (0-6); Hematocrit 32.7 % (33.0-51.0); Hemoglobin 10.6 g/dL (11.5-16.0); IMMATURE GRAN ABSOLUTE AUTO 0.03 K/mm3 (0.00-0.10); IMMATURE GRAN PERCENT AUTO 0 % (0-1); LYMPHOCYTES ABSOLUTE AUTO 2.37 K/mm3 (0.84-5.20); LYMPHOCYTES PERCENT AUTO 31 % (21-46); MONOCYTES ABSOLUTE AUTO 0.97 K/mm3 (0.16-1.47); MONOCYTES PERCENT AUTO 13 % (4-13); Mean Corpuscular HGB Conc 32.4 g/dL (31.5-36.5); Mean Corpuscular Volume 89 fL (80-100); Mean Platelet Volume 9.7 fL (9.1-12.4); NEUTROPHILS ABSOLUTE AUTO 4.13 K/mm3 (1.96-9.15); NEUTROPHILS PERCENT AUTO 53 % (41-73); Platelet Count 379 K/mm3 (150-400); RDW Coefficient Variation 11.9 % (11.7-14.2); RDW Standard Deviation 38.5 fL (35.1-46.3); Red Blood Cell Count 3.66 M/mm3 (3.80-5.20); White Blood Cell Count 7.77 K/mm3 (4.00-11.30)
[2023-10-18 06:14] LABS: Bun/Creatinine Ratio 16.4 (12.0-20.0); Calcium, Blood 8.7 mg/dL (8.5-10.1); Creatinine, Blood 1.77 mg/dL (0.40-1.00); Potassium, Blood 3.6 mmol/L (3.5-5.5)
[2023-10-18 07:40] VITALS: BP 144/64
[2023-10-18 17:16] VITALS: BP 125/75
--- NOTE | 2023-10-18 17:56 | NUR ---
SHIFT SUMMARY PT MIN ASSIST UP TO BATHROOM THIS MORNING. STATES SHE DOESN'T VOID BUT ONCE A DAY AT TIMES. STATES SHE HADN'T VOIDED SINCE YESTERDAY MORNING. MEDICATED FOR MILD NAUSEA WITH PT REPORTING SHE FELT THE ANTICIPATION OF NAUSEA AND WANTED IT TREATED.
[2023-10-18 20:04] VITALS: BP 145/63
[2023-10-18] MEDS ORDERED: Adipex-P37.5 M1 PO (21:01)
[2023-10-19 04:30] VITALS: BP 159/71
[2023-10-19 05:24] LABS: BASOPHILS ABSOLUTE AUTO 0.05 K/mm3 (0.00-0.23); BASOPHILS PERCENT AUTO 1 % (0-2); EOSINOPHILS ABSOLUTE AUTO 0.35 K/mm3 (0.00-0.68); EOSINOPHILS PERCENT AUTO 4 % (0-6); Hematocrit 38.3 % (33.0-51.0); Hemoglobin 12.4 g/dL (11.5-16.0); IMMATURE GRAN ABSOLUTE AUTO 0.04 K/mm3 (0.00-0.10); IMMATURE GRAN PERCENT AUTO 1 % (0-1); LYMPHOCYTES ABSOLUTE AUTO 2.46 K/mm3 (0.84-5.20); LYMPHOCYTES PERCENT AUTO 30 % (21-46); MONOCYTES ABSOLUTE AUTO 1.21 K/mm3 (0.16-1.47); MONOCYTES PERCENT AUTO 15 % (4-13); Mean Corpuscular HGB 29.6 pg (26.0-34.0); Mean Corpuscular HGB Conc 32.4 g/dL (31.5-36.5); Mean Corpuscular Volume 91 fL (80-100); Mean Platelet Volume 10.1 fL (9.1-12.4); NEUTROPHILS ABSOLUTE AUTO 4.08 K/mm3 (1.96-9.15); NEUTROPHILS PERCENT AUTO 50 % (41-73); Platelet Count 383 K/mm3 (150-400); RDW Standard Deviation 39.9 fL (35.1-46.3); Red Blood Cell Count 4.19 M/mm3 (3.80-5.20); White Blood Cell Count 8.19 K/mm3 (4.00-11.30)
[2023-10-19 05:59] LABS: Bun/Creatinine Ratio 16.1 (12.0-20.0); Calcium, Blood 8.9 mg/dL (8.5-10.1); Creatinine, Blood 1.68 mg/dL (0.40-1.00)
--- NOTE | 2023-10-19 06:25 | NUR ---
SHIFT SUMMARY: SAMMY IS A&OX3. VSS, PT'S BLOOD SUGAR DID DROP THIS AM. PT USED THE CALL LIGHT APPROPRIATELY AND REQUESTD STAFF CHECK HER BLOOD GLUCOSE. PT DRANK SOME JUICE AND ATE A SNACK, RECHECK SHOWED IMPROVEMENT AND PT STATED SHE FELT HER BLOOD SUGAR WAS STABLE. PT HAS BEEN TOLERATING PO INTAKE WELL, DID NOT REQUEST ANY ANTINAUSEA OR ANTIEMEDIC MEDICATIONS THIS SHIFT. PT DID AMBULATE TO THE BATHROOM, WITH A STANDBY ASSIST. SHE STATES THAT SHE FREQUENTLY ONLY URINATES ONCE A DAY. ENCOURAGED PT TO ATTEMPT TO URINATE MORE FREQUENTLY. PT IS LYING IN BED WITH THE CALL LIGHT IN REACH. WILL REPORT TO DAY SHIFT NURSE.
[2023-10-19 07:39] VITALS: BP 127/55
[2023-10-19 15:25] VITALS: BP 163/60
--- NOTE | 2023-10-19 18:08 | NUR ---
SHIFT SUMMARY PT UP TO CHAIR FOR LUNCH. STATED SHE HASN'T BEEN IN CHAIR SINCE SHE CAME TO HOSPITAL. VOIDED THIS AFTERNOON JUST PRIOR TO SHOWER. LESS NAPPING TODAY THAN YESTERDAY. REPORTS MORE PAIN TO L SHOULDER-HAS A SURGICAL SCAR TO SHOULDER. PROPPED ON PILLOW FOR COMFORT AND METHADONE SCHEDULED. REQUESTING ANTINAUSEA MEDS WITH BREAKFAST AND LUNCH TO DAY.
[2023-10-19 19:51] VITALS: BP 172/62
[2023-10-20 01:02] VITALS: BP 135/54
[2023-10-20 02:33] VITALS: BP 135/53
--- NOTE | 2023-10-20 04:24 | NUR ---
SHIFT SUMMARY SAMMY WAS ALERT AND FULLY ORIENTED ON ASSESSMENT BUT FORGETFUL. PT REPORTING PAIN, BUT NOT REQUIRING MORE THAN SCHEDULED MEDICATIONS, AND SHE WAS REQUESTING ANTI NAUSEA MEDS EARLY ON IN THE SHIFT. PT NAUSEA WELL MANAGED AT THIS TIME. PT HAS NO NEW COMPLAINTS OR WORSENING SYMPTOMS, AND HAD NO ACUTE EVENTS TONIGHT. PT RESTING IN BED AT A LOW POSITION WITH THE CALL LIGHT IN REACH.
[2023-10-20 05:16] LABS: BASOPHILS ABSOLUTE AUTO 0.03 K/mm3 (0.00-0.23); BASOPHILS PERCENT AUTO 0 % (0-2); EOSINOPHILS ABSOLUTE AUTO 0.28 K/mm3 (0.00-0.68); EOSINOPHILS PERCENT AUTO 4 % (0-6); Hematocrit 32.2 % (33.0-51.0); Hemoglobin 10.6 g/dL (11.5-16.0); IMMATURE GRAN ABSOLUTE AUTO 0.02 K/mm3 (0.00-0.10); IMMATURE GRAN PERCENT AUTO 0 % (0-1); LYMPHOCYTES ABSOLUTE AUTO 1.97 K/mm3 (0.84-5.20); LYMPHOCYTES PERCENT AUTO 26 % (21-46); MONOCYTES ABSOLUTE AUTO 1.06 K/mm3 (0.16-1.47); MONOCYTES PERCENT AUTO 14 % (4-13); Mean Corpuscular HGB 29.8 pg (26.0-34.0); Mean Corpuscular HGB Conc 32.9 g/dL (31.5-36.5); Mean Corpuscular Volume 90 fL (80-100); Mean Platelet Volume 10.1 fL (9.1-12.4); NEUTROPHILS ABSOLUTE AUTO 4.25 K/mm3 (1.96-9.15); NEUTROPHILS PERCENT AUTO 56 % (41-73); Platelet Count 284 K/mm3 (150-400); RDW Coefficient Variation 11.9 % (11.7-14.2); RDW Standard Deviation 39.4 fL (35.1-46.3); Red Blood Cell Count 3.56 M/mm3 (3.80-5.20); White Blood Cell Count 7.61 K/mm3 (4.00-11.30)
[2023-10-20 05:37] LABS: Bun/Creatinine Ratio 16.1 (12.0-20.0); Calcium, Blood 8.7 mg/dL (8.5-10.1); Creatinine, Blood 1.55 mg/dL (0.40-1.00); Potassium, Blood 4.4 mmol/L (3.5-5.5)
[2023-10-20 07:48] VITALS: BP 160/64
[2023-10-20 14:57] VITALS: BP 121/58
--- NOTE | 2023-10-20 18:10 | NUR ---
DAYSHIFT SUMMARY Patient alert & oriented x4. OOB for all meals, complaining of weakness. Patient reports nausea, but no episodes of vomiting this shift. PRN compazine given for N/V. IV ABX administred, IV fentynal given once for LUE pain. Vitals stable. Will continue plan of care.
[2023-10-20 21:05] VITALS: BP 129/82
[2023-10-21 04:59] VITALS: BP 146/60
--- NOTE | 2023-10-21 05:15 | NUR ---
SHIFT SUMMARY: VIANCA IS A&OX4. VSS, NO ACUTE EVENTS THIS SHIFT. POWERGLIDE TO LEFT UPPER ARM PATENT, WAS PLACED THIS SHIFT. SHE IS TOLERATING PO INTAKE WELL AND STATED THAT SHE DID NOT REQUIRE MEDICATIONS FOR NAUSEA THIS SHIFT. SHE REPORTS ADEQUATE PAIN CONTROL WITH MEDICATIONS PER MAR. SHE IS A ONE-PERSON STANDBY ASSIST WITH THE FWW TO THE BATHROOM, CONTINENT OF BLADDER AND BOWEL. PT STATES THAT AT BASELINE SHE URINATES ONLY A COUPLE OF TIMES A DAY. SHE IS LYING IN BED WITH THE CALL LIGHT IN REACH. WILL GIVE REPORT TO DAY SHIFT RN.
[2023-10-21 07:18] VITALS: BP 141/47
--- NOTE | 2023-10-21 16:38 | NUR ---
DAYSHIFT SUMMARY Patient alert & oriented x4. Patient OOB for meals, ambulating to the bathroom. Patient appears stiff, painful when movement, she reported severe flank back when ambulating. IV Fentynal given PRN, IV compazine & zofran given for nausea. IV ABX administred this shift. Humalog SSI changed from low to medium scale. CBGS high, breakfast/231, lunch/241, SSI given. Vitals stable, afebrile. Will continue plan of care.
[2023-10-21 17:28] VITALS: BP 138/51
[2023-10-21 19:20] VITALS: BP 88/66
[2023-10-21 22:25] VITALS: BP 134/50
[2023-10-22 04:45] VITALS: BP 142/54
--- NOTE | 2023-10-22 05:22 | NUR ---
SHIFT SUMMARY: SAMMY IS A&OX4. VSS, ONE LOW BP WHICH WAS OBTAINED ON PT'S WRIST. RECHECK ON UPPER ARM CONSISTENT WITH TREND. PT IS TOLERATING PO INTAKE WELL, IS A STANDBY ASSIST WITH THE FWW TO THE BATHROOM, AND USES THE CALL LIGHT APPROPRIATELY. PT C/O PAIN TO HER BOTTOM, FLOATED ON PILLOWS. DISCUSSED REPOSITIONING AND PRESSURE ULCER PREVENTION. PT STATES THAT SHE IS NOT ABLE TO TOLERATE LYING ON EITHER SIDE OR LOWERING THE HEAD OF THE BED VERY FAR D/T HER CHRONIC LOW BACK PAIN. POWERGLIDE TO JEREMY PATENT. SHE IS LYING IN BED WITH THE CALL LIGHT IN REACH. WILL GIVE REPORT TO DAY SHIFT RN.
[2023-10-22 07:32] VITALS: BP 150/49
[2023-10-22 16:12] VITALS: BP 95/68
--- NOTE | 2023-10-22 16:29 | NUR ---
SHIFT SUMMARY ABLE TO AMBULATE SBA TO INDEPENDENT IN ROOM THIS SHIFT. C/O PAIN IN LEFT SHOULDER JOINT, BACK AND GENERAL PAIN, GIVEN FENTANYL AND SCHEDULED METHADONE, DECLINED APAP. CONTINUES TO BE SLOW TO RESPOND TO CONVERSATION, FLAT AFFECT. WILL BE NPO AT MIDNIGHT FOR NERISSA IN AM, ORDER PLACED. CARES ONGOING.
[2023-10-22 20:33] VITALS: BP 139/41
[2023-10-23] VITALS (19 sets, daily range): BP systolic 92–176; BP diastolic 34–133
--- NOTE | 2023-10-23 05:37 | NUR ---
SHIFT SUMMARY PT IS A&OX4, FLAT AFFECT AND TAKES AWHILE FOR PT TO RESPOND TO QUESTIONS. VSS ON RA. NSR @ 85 PER TELEMETRY. C/O PAIN IN BILATERAL SHOULDERS, BACK, AND GENERALIZED EVERYWHERE. MANAGED WITH MEDICATIONS PER EMAR. SBA/I WITH FWW. VOIDING ADEQUATE AMOUNTS OF CLOUDY, YELLOW URINE. TOLERATING A CONSISTANT CARB DIET, NPO AFTER MN FOR NERISSA THIS MORNING. BED IN LOWEST POSITION, CALL LIGHT WITHIN REACH. VIANCA CALLS APPROPRIATELY FOR NEEDS.
--- NOTE | 2023-10-23 14:02 | NUR ---
PATIENT OFF UNIT VIA W/C TO NERISSA. LAST CBG 218.
--- NOTE | 2023-10-23 19:23 | NUR ---
SHIFT SUMMARY: NO ACUTE EVENTS. NO C/O NAUSEA THIS SHIFT. WENT TO [facility] FOR NERISSA THIS AFTERNOON, TOLERATED WELL. DIFFICULT TO ASSESS HOW ORIENTED SHE IS. FLAT AFFECT. NO EVENTS ON TELEMETRY, SR 80'S. GETTING UP TO BR WITH SBA AND FWW, DOES NOT UNDERSTAND TO PULL THE CORD WHEN SHE IS DONE. TOLERATING PO INTAKE. DENIED PAIN.
[2023-10-24] VITALS (7 sets, daily range): BP systolic 134–207; BP diastolic 50–75
[2023-10-24 08:27] LABS: BASOPHILS ABSOLUTE AUTO 0.04 K/mm3 (0.00-0.23); BASOPHILS PERCENT AUTO 1 % (0-2); EOSINOPHILS ABSOLUTE AUTO 0.12 K/mm3 (0.00-0.68); EOSINOPHILS PERCENT AUTO 2 % (0-6); Hematocrit 29.6 % (33.0-51.0); Hemoglobin 9.7 g/dL (11.5-16.0); IMMATURE GRAN ABSOLUTE AUTO 0.03 K/mm3 (0.00-0.10); IMMATURE GRAN PERCENT AUTO 0 % (0-1); LYMPHOCYTES ABSOLUTE AUTO 1.11 K/mm3 (0.84-5.20); LYMPHOCYTES PERCENT AUTO 14 % (21-46); MONOCYTES ABSOLUTE AUTO 1.04 K/mm3 (0.16-1.47); MONOCYTES PERCENT AUTO 13 % (4-13); Mean Corpuscular HGB 29.7 pg (26.0-34.0); Mean Corpuscular HGB Conc 32.8 g/dL (31.5-36.5); Mean Corpuscular Volume 91 fL (80-100); Mean Platelet Volume 10.5 fL (9.1-12.4); NEUTROPHILS ABSOLUTE AUTO 5.44 K/mm3 (1.96-9.15); NEUTROPHILS PERCENT AUTO 70 % (41-73); Platelet Count 304 K/mm3 (150-400); RDW Coefficient Variation 11.7 % (11.7-14.2); Red Blood Cell Count 3.27 M/mm3 (3.80-5.20); White Blood Cell Count 7.78 K/mm3 (4.00-11.30)
[2023-10-24 08:44] LABS: Bun/Creatinine Ratio 17.9 (12.0-20.0); Calcium, Blood 9.3 mg/dL (8.5-10.1); Creatinine, Blood 1.23 mg/dL (0.40-1.00); Potassium, Blood 4.8 mmol/L (3.5-5.5)
--- NOTE | 2023-10-24 09:03 | NUR ---
SHIFT SUMMARY PT IS A&O TO HERSELF ONLY. FLAT AFFECT, HARD TO DECIDE HER MENTATION WHEN SHE DOESN'T ANSWER MY QUESTIONS. VSS ON RA, NSR 80-90'S PER TELEMETRY. AT 0130 THIS RN FOUND PT IN BR, SITTING IN THE SHOWER. PT WAS NOT ABLE TO TELL ME WHY SHE WAS IN THERE, OR WHAT WAS GOING ON. NOT AWARE IF THE PT COULD WALK, I CALLED HEAVY FORGER TO BRING ME A WHEELCHAIR AND HELP PT BACK TO BED. ONCE BACK IN BED, PT STILL NOT ANSWERING QUESTIONS. BP 203/72, HR SINUS IN THE 90'S PER TELEMETRY. RECHECK WAS 207/73. VIANCA IS NOW CRYING, BUT UNSURE WHY, NOT IN PAIN. NOTIFIED. NO NEW ORDERS, TOLD TO WATCH OVER NOC. VIANCA CONTINUED TO SPORACTICALLY CRY, SAID THIS RN WAS NOT TALKING TO HER. I EXPLAINED TO HER THAT I HAD BEEN IN THERE FREQUENTLY AND THAT SHE WAS NOT ANSWERING QUESTIONS. SHE THEN CALMED DOWN AND VITAL SIGNS SEEMED TO BECOME MORE IN RANGE. THEN AROUND 0430, PT BEGAN TO CRY AGAIN AND THIS RN WAS NOT ABLE TO CONSOL. WHEN THIS RN MENTIONED TO HEAVY FORGER THAT MAYBE SHE WAS GETTING TOO MUCH MEDICATION, PT CLEARLY STATED THAT WAS NOT THE PROBLEM. SIGNIFICANT R HAND TREMOR, WHEN UPSET IT WAS HER ENTIRE BODY. BED IN LOWEST POSITION, CALL LIGHT WITHIN REACH. BED ALARM SET FOR PT'S SAFETY.
--- NOTE | 2023-10-24 16:46 | NUR ---
SHIFT SUMMARY: PT HAS BEEN ALERT, ORIENTED TO SELF, LOCATION AND SOME SITUATION. PT IS SLOW TO ANSWER QUESTIONS W/FLAT AFFECT T/OUT THE DAY. PT FOUND TO BE EMOTIONAL ONE TIME TODAY WHEN HER FRIEND WAS VISITING, AND WAS NOT ABLE TO VERBALIZE WHY SHE WAS CRYING, STATING "I DON'T KNOW" WHEN ASKED. RESPIRATORY STATUS WNL. VSS. PT DENIES CHEST PAIN. SR ON MONITOR W/RATE 80s. PT DENIES NAUSEA T/OUT THE DAY, NO EMESIS THIS SHIFT. PT HAS TOLERATED SBA W/FWW, BED ALARM ON FOR SAFETY. AT THIS TIME, PT IS RESTING QUIETLY IN BED W/CALL LIGHT IN REACH. WILL CONTINUE TO MONITOR AND TREAT ACCORDINGLY UNTIL CHANGE OF SHIFT.
--- NOTE | 2023-10-24 18:30 | NUR ---
BLOOD GLUCOSE: PT WITH LOW BLOOD GLUCOSE LEVEL PRIOR TO DINNER, READING OF 57. PT PROVIDED WITH SNACKS AND JUICE. BLOOD GLUCOSE RECHECK OF 144. PT W/MEAL TRAY AT THIS TIME.
[2023-10-25 03:37] VITALS: BP 151/73
[2023-10-25 07:42] VITALS: BP 157/57
--- NOTE | 2023-10-25 08:36 | NUR ---
SHIFT SUMMARY VIANCA HAS HAD NO ACUTE CHANGES THIS SHIFT. SLEPT T/O NOC. NO C/O PAIN OR NAUSEA. FREQUENT ROUNDING. BED IN LOWEST POSITION, CALL LIGHT WITHIN REACH.
[2023-10-25] MEDS ORDERED: METH10 PO ×2 (15:02)
[2023-10-25] MEDS ORDERED: CONEST.625 PO ×2 (15:06)
[2023-10-25] MEDS ORDERED: GABA300 PO ×2 (15:07)
[2023-10-25] MEDS ORDERED: FLUC200 PO ×2 (15:07)
--- NOTE | 2023-10-25 15:33 | NUR ---
NOTE FOR 10/25 829- DR DINH CAME TO ROOM AND ASSESSED PT. VISUALIZED PT WHILE SHE WAS HAVING ESCALATING ANXIETY AND PARANOIA. REFUSING MEDS AND TX. OK TO HOLD METHADONE AM DOSE. ALSO HELD BUSPAR RELATED TO LETHARGY INITIALLY, BUT PT'S BEHAVIOR ESCELATED, DR DINH WANTS BUSPAR TO BE GIVEN WHEN/IF PT BECOMES WILLING. PLANS FOR DC DEFERRED UNTIL RE-EVAL TOMORROS.
[2023-10-25 16:02] VITALS: BP 163/73
--- NOTE | 2023-10-25 17:01 | NUR ---
CALLED DR DINH [phone] TO NOTIFY THAT PT CONTINUES INTERMITTANTLY WITH EXPRESSIVE APHASIA, UNABLE TO SPEEK. ORDER FOR CAT SCAN
--- NOTE | 2023-10-25 18:44 | NUR ---
SUMMARY- PT A/O X3. THIS AM PT WAS LETHARGIC. HELD METHADONE. PT WOKE UP AND BECAME PARANOID AND AGGITATED. REFUSED MEDS AND SPIT THEM OUT. NOTIFIED DR DINH. GAVE BUSPAR WHEN PT BECAME CALM AND APPOLOGETIC FOR HER BEHAVIOR. PT VASALATED BETWEEN BEING ORIENTED AND VERBAL TO HAVING EXPRESSIVE APHASIA AND CONFUSION. DR DINH NOTIFIED ON ONGOING NERUO ISSUES, CT HEAT ORDERED AND PERFORMED. PT HAS LITTLE APPETITE, PERIODS OF NAUSEA, MEDICATED X2 FOR NAUSEA. HELD AM METHADONE AND GAVE NOON 10MG DOSE. OBTAINED MED REC FROM PCP AND UPDATED IN THE COMPUTER. DR DINH HOPEFUL TO DC AM REEVAL NEURO. WILL REPORT ALL TO NOC RN
[2023-10-25 20:13] VITALS: BP 161/63
--- NOTE | 2023-10-25 23:28 | NUR ---
PT SET OFF BED ALARM, SHE WAS OUT OF BED AND ALL THE WAY BY THE CHAIR IN HER ROOM BY THE TIME WE CAME IN TO THE ROOM. SHE HAD SPILLED SOMETHING ON HER GOWN AND HER BLANKET. SHE ALSO SAID SHE WAS WET. SHE HAS NO ATTENDS/BRIEF ON, NOT SURE WHERE IT IS. PLACED A NEW BRIEF AND GOWN ON PT. CLEAN SHEETS/SALDANA/BLANKETS ON BED. HELPED PT BACK TO BED. CALL LIGHT IS IN REACH. PT DENIES NEED FOR ANYTHING ELSE AT THIS TIME. NO OTHER APPARENT SIGNS OF DISTRESS.
--- NOTE | 2023-10-26 05:03 | NUR ---
SHIFT SUMMARY VIANCA IS A&O TO SELF, SHE WAS ABLE TO TELL ME HER BIRTHDAY TONIGHT. VSS ON RA. SR 79 PER TELEMETRY. MEDICATED ONCE FOR NAUSEA. DENIES PAIN. RESTLESS AND SAT IN CHAIR FOR QUITE A WHILE TONIGHT. SHE WAS IN A BETTER MOOD TONIGHT THEN THE PREVIOUS 3. WAS JOKING AND LAUGHING WITH ME. SBA WITH FWW. NO ACUTE CHANGES OR EVENTS THIS SHIFT. VOIDING LARGE AMOUNTS OF URINE, STILL NO BM THIS SHIFT. BED IN LOWEST POSITION, CALL LIGHT WITHIN REACH.
[2023-10-26 05:22] VITALS: BP 144/63
[2023-10-26 07:37] VITALS: BP 149/52
[2023-10-26] MEDS ORDERED: Aspir 8181 MG PO ×2 (12:48)
[2023-10-26] MEDS ORDERED: CEFEPIME HCL2 G1 IV ×2 (12:49)
[2023-10-26] MEDS ORDERED: INSULIN GL100 UNIT/2 SC ×2 (12:50)
[2023-10-26] MEDS ORDERED: HUMULIN R100 UNIT/2 SC ×2 (12:52)
[2023-10-26] MEDS ORDERED: ONDA4 PO ×2 (12:53)
[2023-10-26] MEDS ORDERED: MIRALAX17 GM PO ×2 (12:53)
[2023-10-26] MEDS ORDERED: SENNA LAXATIVE8.6 MG PO ×2 (12:54)
[2023-10-26] MEDS ORDERED: VISBIOME 112.51 EACH PO ×2 (12:54)
--- NOTE | 2023-10-26 14:00 | NUR ---
Pt has been discharged to home, will need to come in to infusion therapy for tx for three days, power glide left, capped, and secured, went over instructions with caregiver and pt. they verbalized understanding, new medications were faxed to [facility] via wheelchair with all belongings.
== END 2023-10-26 14:14 | disposition home health service (06) | DRG 73 ==
LOC: ER 07:39 → MEDS 17:38
PROVIDERS: Internal Medicine; Student in an Organized Health Care Education/Training Program; ADMIT Family Medicine
DX: E11.43 Type 2 diabetes mellitus with diabetic autonomic (poly)neuropathy (principal); A41.9 Sepsis, unspecified organism; E87.1 Hypo-osmolality and hyponatremia; I24.89 Other forms of acute ischemic heart disease; R11.2 Nausea with vomiting, unspecified; E78.5 Hyperlipidemia, unspecified; E11.22 Type 2 diabetes mellitus with diabetic chronic kidney disease; I12.9 Hypertensive chronic kidney disease with stage 1 through stage 4 chronic kidney disease, or unspecified chronic kidney disease; N18.30 Chronic kidney disease, stage 3 unspecified; M79.7 Fibromyalgia; K31.84 Gastroparesis; F12.90 Cannabis use, unspecified, uncomplicated; E86.0 Dehydration; B96.5 Pseudomonas (aeruginosa) (mallei) (pseudomallei) as the cause of diseases classified elsewhere; M25.519 Pain in unspecified shoulder; E78.1 Pure hyperglyceridemia; F41.9 Anxiety disorder, unspecified; G89.4 Chronic pain syndrome; D75.839 Thrombocytosis, unspecified; D63.1 Anemia in chronic kidney disease; Z79.899 Other long term (current) drug therapy; Z79.4 Long term (current) use of insulin; Z79.82 Long term (current) use of aspirin; Z79.2 Long term (current) use of antibiotics; Z90.710 Acquired absence of both cervix and uterus; Z98.890 Other specified postprocedural states; Z11.52 Encounter for screening for COVID-19
CPT/HCPCS: 0241U; 36415; 70450; 73030; 74177; 80048; 80053; 81001; 82010; 82803; 82947; 83036; 83690; 84145; 84484; 85025; 87040; 87077; 87186; 93005; 93010; 93306; 93312; 93325; 96361; 96374-59; 96375; 96376; 97116; 97162; 97530; 99285-25; A9270; C1751; J0692; J0696; J0780; J1650; J1790; J1815; J1885; J2405; J2704; J2765; J3010; J7030; J7050; Q9967

== ENCOUNTER 2023-10-28 04:31 | Day surgery (SDC) | payer OTHER ==
[~2023-10-28 04:31] MED LIST changes: +Aspir 8181 MG PO; +CEFEPIME HCL2 G1 IV; +GABA300 PO; +HUMULIN R100 UNIT/2 SC; +INSULIN GL100 UNIT/2 SC; +MIRALAX17 GM PO; +ONDA4 PO; +OXYC10TA19 PO; +SENNA LAXATIVE8.6 MG PO; +VISBIOME 112.51 EACH PO
[2023-10-28 07:25] VITALS: BP 133/64
[2023-10-28 16:15] VITALS: BP 139/71
== END 2023-10-28 16:41 | disposition home or self-care (01) ==
LOC: ATC 04:31
DX: R78.81 Bacteremia (principal); B96.5 Pseudomonas (aeruginosa) (mallei) (pseudomallei) as the cause of diseases classified elsewhere; E11.22 Type 2 diabetes mellitus with diabetic chronic kidney disease; I12.9 Hypertensive chronic kidney disease with stage 1 through stage 4 chronic kidney disease, or unspecified chronic kidney disease; N18.30 Chronic kidney disease, stage 3 unspecified; E78.5 Hyperlipidemia, unspecified; Z79.82 Long term (current) use of aspirin; D75.839 Thrombocytosis, unspecified; G89.4 Chronic pain syndrome
CPT/HCPCS: 96365; J0692

== ENCOUNTER 2023-10-29 04:22 | Day surgery (SDC) | payer OTHER ==
[2023-10-29 07:40] VITALS: BP 130/50
[2023-10-29 16:20] VITALS: BP 133/58
== END 2023-10-29 17:08 | disposition home or self-care (01) ==
LOC: ATC 04:22
DX: R78.81 Bacteremia (principal); B96.5 Pseudomonas (aeruginosa) (mallei) (pseudomallei) as the cause of diseases classified elsewhere; D75.839 Thrombocytosis, unspecified; E11.22 Type 2 diabetes mellitus with diabetic chronic kidney disease; N18.30 Chronic kidney disease, stage 3 unspecified; I12.9 Hypertensive chronic kidney disease with stage 1 through stage 4 chronic kidney disease, or unspecified chronic kidney disease; G89.4 Chronic pain syndrome; E78.5 Hyperlipidemia, unspecified
CPT/HCPCS: 96365; J0692

== ENCOUNTER 2025-01-08 12:40 | Inpatient (IN) | payer OTHER ==
[~2025-01-08] VITALS: Ht 157.5 cm; Wt 108.3 kg
[2025-01-08] MEDS ORDERED: Ipratropium/Albuterol SulF 2.5-0.5MG/3 ML Amp INH ONE (13:45)
[2025-01-08] MEDS ORDERED: Etomidate 2MG / ML 10ML Vial XX ONE (14:09)
[2025-01-08] MEDS ORDERED: Rocuronium Bromide 10 MG/ML 5ML Injection IV ONE (14:09)
[2025-01-08 14:18] LABS: Base Excess Venous -1.6 mmol/L; Bicarbonate Venous 22.4 mmol/L (24.0-30.0); PCO2 Venous 55.6 mmHg (38-42); pH Blood Venous 7.27 (7.34-7.37)
[2025-01-08 14:20] LABS: Hematocrit 32.3 % (33.0-51.0); Hemoglobin 10.7 g/dL (11.5-16.0); Mean Corpuscular HGB 30.1 pg (26.0-34.0); Mean Corpuscular HGB Conc 33.1 g/dL (31.5-36.5); Mean Corpuscular Volume 91 fL (80-100); Mean Platelet Volume 10.7 fL (9.1-12.4); Platelet Count 369 K/mm3 (150-400); RDW Coefficient Variation 12.1 % (11.7-14.2); RDW Standard Deviation 40.5 fL (35.1-46.3); Red Blood Cell Count 3.55 M/mm3 (3.80-5.20); White Blood Cell Count 23.37 K/mm3 (4.00-11.30)
[2025-01-08] MEDS ORDERED: Vancomycin HCL 2,000 MG in NS 520 ML IV ONE (14:25)
[2025-01-08] MEDS ORDERED: Piperacillin/Tazobactam Sod 3.375 GM in NS 100 ML IV ONE (14:25)
[2025-01-08] MEDS ORDERED: Lactated Ringer's 1,000 ML IV SCH ×2 (14:25→16:15)
[2025-01-08 14:35] LABS: International Normalized Ratio 1.11; Prothrombin Time Results 11.8 Sec (9.7-11.5)
[2025-01-08] MEDS ORDERED: Sodium Bicarb 8.4% 50 mEq Syringe IV ONE (14:36)
[2025-01-08 14:48] LABS: Magnesium, Blood 1.4 mg/dL (1.6-2.4)
[2025-01-08 14:49] LABS: Albumin, Blood 2.7 g/dL (3.4-5.0); Albumin/Globulin Ratio 0.6 (0.8-1.8); Bilirubin, Total 0.5 mg/dL (0.1-1.0); Bun/Creatinine Ratio 21.7 (12.0-20.0); Calcium, Blood 9.3 mg/dL (8.5-10.1); Creatinine, Blood 2.21 mg/dL (0.40-1.00); Globulin, Blood 4.9 g/dL (2.2-4.0); Potassium, Blood 4.3 mmol/L (3.5-5.5); Total Protein, Blood 7.6 g/dL (6.4-8.2)
[2025-01-08 14:53] LABS: BAND PERCENT MAN 16 % (0-8); BASOPHILS PERCENT MAN 0 % (0-2); EOSINOPHILS PERCENT MAN 0 % (0-6); LYMPHOCYTES ABSOLUTE MAN 1.86 K/mm3 (0.84-5.20); LYMPHOCYTES PERCENT MAN 8 % (21-46); MONOCYTES ABSOLUTE MAN 1.63 K/mm3 (0.16-1.47); MONOCYTES PERCENT MAN 7 % (4-13); NEUTROPHILS ABSOLUTE MAN 19.86 K/mm3 (1.96-9.15); SEG NEUTROPHILS PERCENT MAN 69 % (41-73); TOTAL CELLS COUNTED 100
[2025-01-08 14:53] LABS: Source, Urine Foley catheter
[2025-01-08 15:02] LABS: Appearance, Urine Hazy (Clear); Bilirubin, Urine Neg (Neg); Blood, Urine 1+ (Neg); Color, Urine Yellow (P-Yellow); Glucose Qualitative, Urine 3+ (Neg); Ketones, Urine 1+ (Neg); Leukocyte Esterase, Urine Neg (Neg); Nitrite, Urine Neg (Neg); Protein, Urine 3+ (Neg); Urobilinogen, Urine NORM (Normal)
[2025-01-08] MEDS ORDERED: [UNRECOGNIZED DRUG - OTHER] PO (15:10)
[2025-01-08] MEDS ORDERED: FUROSEMIDE40 MG PO (15:11)
[2025-01-08 15:14] LABS: Amorphous Light (0-Heavy); Bacteria Mod /hpf; Hyaline Casts 0-2 /lpf (0-2); Mucus Light (0-Heavy); Red Blood Cells, Urine 0-2 /hpf (0-2); Squamous Epithelial Cells Rare /hpf (Few); White Blood Cells, Urine 0-2 /hpf (0-5)
[2025-01-08 15:30] LABS: U Amphetamine Screen DETECTED; U Barbituate Screen Not Detected; U Benzodiazapine Screen Not Detected; U Buprenorphine Screen Not Detected; U Cannabinoids Screen DETECTED; U Cocaine Screen Not Detected; U Methadone Screen DETECTED; U Methamphetamine Screen Not Detected; U Opiates Screen Not Detected; U Oxycodone Screen DETECTED; U Phencyclidine Screen Not Detected
[2025-01-08] MEDS ORDERED: Ipratropium/Albuterol SulF 2.5-0.5MG/3 ML Amp INH SCH (16:10)
[2025-01-08] MEDS ORDERED: Ondansetron HCl 2 MG / ML 2ML Vial IV PRN (16:15)
[2025-01-08] MEDS ORDERED: Albuterol 2.5 MG/3 ML VIAL INH PRN (16:15)
[2025-01-08] MEDS ORDERED: FentaNYL Citrate 50 MCG/ML 2 ML Injection IV PRN (16:15)
[2025-01-08] MEDS ORDERED: Mag Sulfate 1 GM/D5% 100ML 100 ML IV STA (16:20)
[2025-01-08 16:24] LABS: Influenza A, PCR NEGATIVE (NEGATIVE); Influenza B, PCR NEGATIVE (NEGATIVE); SARS-Cov-2 (COVID-19) PCR, MMC NEGATIVE (NEGATIVE)
[2025-01-08 17:40] LABS: Resp Syncytial Virus, PCR POSITIVE (NEGATIVE)
[2025-01-08] MEDS ORDERED: Insulin Regular 100 UNIT/ML 10ML Vial SC SCH (18:00)
[2025-01-08 18:13] VITALS: BP 102/71
[2025-01-08 18:27] LABS: Base Excess Venous -0.9 mmol/L; PCO2 Venous 45.7 mmHg (38-42); pH Blood Venous 7.34 (7.34-7.37)
[2025-01-08] MEDS ORDERED: Furosemide 10 MG / ML 2ML Vial IV ONE (19:00)
[2025-01-08] MEDS ORDERED: Hydrocortisone Sod Succinate 100 MG Vial IV SCH (19:00)
[2025-01-08] MEDS ORDERED: Acetaminophen 650 MG Supp PR PRN (19:05)
--- NOTE | 2025-01-08 19:18 | NUR ---
AT ARRIVED TO PCU 13 VIA GURNEY ON BIPAP. PT AROUSABLE BUT OLNY ORIENTED TO SELF. PT FEBRILE WITH A TEMP OF 102.1 AND TACHYPENIC AT 46 ON BIPAP. VGB REDRAWN AND SECOND LINE STARTED. PROVIDER CALLED DUE TO CONCERN FOR PTS LUNG SOUNDS SOUNDING VERY WET AND CONCERN FOR FLUID OVERLOAD. PROVIDER ORDERS TO HOLD FURTHER FLUIDS AND TO GIVE PT LASIX. PT OPENS HERE EYES AND APPEARS TO BE HALLUCINATING. IV ABX CONTINUES. REPORT TO JAZ BILLINGS TO ASSUME CARE OF PT.
[2025-01-08 21:00] VITALS: BP 137/93
[2025-01-08] MEDS ORDERED: Lactobacil 2-S.Thermo-Bifido 1 1 Cap PO SCH (21:00)
--- NOTE | 2025-01-08 21:43 | NUR ---
Dr. Day (Resident) here now to look at patient. Bipap 60% FIO2 Resps in the high 30's. Arousable , closes eyes quickly. Temp 102.3 via robles catheter indwelling. Continue Care
[2025-01-08 22:00] VITALS: BP 114/99
[2025-01-08 22:30] VITALS: BP 111/95
[2025-01-08 23:00] VITALS: BP 126/106
[2025-01-08 23:30] VITALS: BP 123/67
[2025-01-09] VITALS (45 sets, daily range): BP systolic 93–129; BP diastolic 46–105
[2025-01-09] MEDS ORDERED: Piperacillin/Tazobactam Sod 2.25 GM in NS 50 ML IV SCH
[2025-01-09] MEDS ORDERED: Acetaminophen 650 MG Supp PR PRN (01:00)
--- NOTE | 2025-01-09 04:19 | NUR ---
LATE ENTRY FOR 01/08/25 TIME: 2025 PATIENT REMAINS ON BIPAP 50% RATE OF 14. BREATHING 37-39 BPM AROUSABLE BUT NOT ABLE TO SPEAK. TYLENOL RECTAL FOR TEMPOF 102.2 PATIENT'S INSULIN PUMP REMOVED WITH CHARGE NURSE PRASHANT. PUT INTO PATIENT BELONGINGS BAG CONTINUE CARE
--- NOTE | 2025-01-09 04:24 | NUR ---
PATIENT IS NOW ON BIPAP 70%. HAD BEEN UP TO 100% EARLIER AND NOW SLOWING TITRATING DOWN. FEBRIL TEMP 102.0 PER JARA PROBE TYPLENOL GIVEN AGAIN RECTALLY. PATIENT ICE PACKED AROUUND HER BODY. NO PO MEDS GIVEN, NO IVF INFUSING 550 OUT IN JARA SINCE 190. SLIGHTLY RESTLESS AT TIMES. DOES NOT SEEM TO COMPREHEND HER NEED FOR TREATMENT AT THIS TIME. CONTINUE CARES
[2025-01-09] MEDS ORDERED: Insulin Regular 100 UNIT/ML 10ML Vial SC SCH (06:00)
--- NOTE | 2025-01-09 06:28 | NUR ---
PATIENT TEMP FLUCTUATING TONIGHT BETWEEN 102-99 PER PROBE IN JARA. PATIENT APPEARS RESTLESS AT TIMES. ICE PACKS ON PATIENT. BIPAP 70% FIO2. UNSURE OF PATIENTS MENTATON SHE REQUIRED TO HAVE BIPAP ON ALL NIGHT. DROWSY, AROUSABLE, REACTIVE TO PAIN. NO PO FLUIDS, NO IVF INFUSING. CONTINUE CARE
[2025-01-09 06:41] LABS: Hematocrit 30.5 % (33.0-51.0); Hemoglobin 10.2 g/dL (11.5-16.0); Mean Corpuscular HGB 30.3 pg (26.0-34.0); Mean Corpuscular HGB Conc 33.4 g/dL (31.5-36.5); Mean Corpuscular Volume 91 fL (80-100); Mean Platelet Volume 10.6 fL (9.1-12.4); Platelet Count 295 K/mm3 (150-400); RDW Coefficient Variation 12.3 % (11.7-14.2); RDW Standard Deviation 41.1 fL (35.1-46.3); Red Blood Cell Count 3.37 M/mm3 (3.80-5.20); White Blood Cell Count 6.32 K/mm3 (4.00-11.30)
[2025-01-09 06:59] LABS: Albumin, Blood 2.1 g/dL (3.4-5.0); Albumin/Globulin Ratio 0.4 (0.8-1.8); Bilirubin, Total 0.6 mg/dL (0.1-1.0); Bun/Creatinine Ratio 22.3 (12.0-20.0); Calcium, Blood 9.2 mg/dL (8.5-10.1); Creatinine, Blood 2.78 mg/dL (0.40-1.00); Globulin, Blood 4.8 g/dL (2.2-4.0); Potassium, Blood 4.2 mmol/L (3.5-5.5); Total Protein, Blood 6.9 g/dL (6.4-8.2)
[2025-01-09 07:31] LABS: BAND PERCENT MAN 25 % (0-8); BASOPHILS PERCENT MAN 0 % (0-2); EOSINOPHILS PERCENT MAN 0 % (0-6); LYMPHOCYTES ABSOLUTE MAN 0.56 K/mm3 (0.84-5.20); LYMPHOCYTES PERCENT MAN 9 % (21-46); METAMYELOCYTE ABSOLUTE MAN 0.25 K/mm3 (0.00-0.00); METAMYELOCYTE PERCENT MAN 4 % (0-0); MONOCYTES ABSOLUTE MAN 1.13 K/mm3 (0.16-1.47); MONOCYTES PERCENT MAN 18 % (4-13); NEUTROPHILS ABSOLUTE MAN 4.36 K/mm3 (1.96-9.15); SEG NEUTROPHILS PERCENT MAN 44 % (41-73); TOTAL CELLS COUNTED 100
[2025-01-09] MEDS ORDERED: Enoxaparin 30 MG/0.3 ML SYR SC SCH (09:00)
[2025-01-09] MEDS ORDERED: Enoxaparin 40 MG/0.4 ML SYR SC SCH (09:00)
[2025-01-09] MEDS ORDERED: Hydrocortisone Sod Succinate 100 MG Vial IV SCH (09:00)
[2025-01-09] MEDS ORDERED: Lactated Ringer's 1,000 ML IV SCH (09:20)
[2025-01-09] MEDS ORDERED: Azithromycin 500 MG in NS 250 ML IV ONE (09:35)
--- NOTE | 2025-01-09 09:35 | NUR ---
PT TO ICU ROOM 14, ESCORTED BY UI ARCHITECT, RUBBER ENGRAVER, AND RT. ON BIPAP c SETTINGS OF 18/10 AND 90%, O2 SATURATION 93% AND RR OF 28. PT UNABLE TO SPEAK D/T INCREASED WOB. WHEN ASKED IF SHE CAN SHAKE HER HEAD YES SHE IS ABLE TO DO SO, BUT WHEN ASKED QUESTIONS PT QUICKLY TIRES OUT AND DOES NOT ANSWER QUESTIONS. FOLLOW SOME COMMANDS. CONTINUOUS CARDIAC MONITORING IN PLACE SHOWS SR, BP STABLE. PIV TO LAC AND L HAND, LR INFUSING AT 100 mL/HR. SEE SHIFT ASSESSMENT FOR FULL DETAILS.
--- NOTE | 2025-01-09 09:44 | NUR ---
Telephone report given to Jeanine Martinez, and pt was transferred to ICU 14 with bipap on, 90% Fio2.
[2025-01-09] MEDS ORDERED: NS 500 ML IV SCH (10:00)
[2025-01-09 10:01] LABS: Base Excess Venous -4.5 mmol/L; Bicarbonate Venous 20.7 mmol/L (24.0-30.0); PCO2 Venous 44.1 mmHg (38-42)
[2025-01-09 10:50] LABS: Vancomycin, Random 21.7 ug/mL
--- NOTE | 2025-01-09 13:32 | NUR ---
CONVERSION TO AFIB AT APPROXIMATELY 1314 PT CONVERTED FROM SR TO AFIB. EKG OBTAINED SHOWING AFIB c RVR. SPOKE c DR. DINH WHO STATES CONTINUE TO MONITOR AND NOTIFY IF HR SUSTAINS 120'S OR GREATER.
[2025-01-09] MEDS ORDERED: Piperacillin/Tazobactam Sod 3.375 GM in NS 100 ML IV SCH (14:00)
[2025-01-09] MEDS ORDERED: dexmedeTOMIDine 100 ML IV SCH (14:10)
[2025-01-09] MEDS ORDERED: MethylPREDNISolone Sod Succ 125 MG Vial IV SCH (16:00)
--- NOTE | 2025-01-09 18:35 | NUR ---
SHIFT SUMMARY PT STILL ON PRECEDEX, INFUSING AT 0.1 MCG/KG/HR WITH RASS -3 TO -2. NOT FOLLOWING COMMANDS. CONTINUOUS CARDIAC MONITORING IN PLACE SHOWS AFIB c HR IN 90'S-130'S, BP STABLE c MAP > 65. (SEE NOTE REGARDING RHYTHM CHANGE). ON BIPAP c SETTINGS OF 18/10 AND FI02 80%, O2 SATURATIONS > 92%. NO BM THIS SHIFT, TEMP JARA REMAINS PATENT AND DRAINING TO GRAVITY. PREVIOUS LAC IV SITE DECREASED REDNESS, SOFT AND NONTENDER. LR INFUSING AT 200mL/HR. WILL CONTINUE TO MONITOR AND REPORT TO ONCOMING RN.
--- NOTE | 2025-01-09 18:35 | NUR ---
END OF SHIFT SUMMARY. PT CONTINUES TO BE ON PRECEDEX, INFUSING AT 0.1 MCG/KG/HR WITH RASS OF -3 TO -2, PT NOT ABLE TO FOLLOW COMMANDS. CONTINOUS CARDIAC MONTIORING IN PLACE. PT STILL IN AFIB RANGING FROM 90'S TO 130'S. BP STABLE WITH MAP GREATER THAN 65. BIPAP SETTINGS ARE 18/10 AND FI02 OF 80%, 02 SATURATIONS OF GREATER THAN 92%. NO BM THIS SHIFT. TEMP JARA STILL IN PLACE AND DRAINING TO GRAVITY. PERVIOUS LEFT AC IV WAS REMOVED DUE TO INFILTRATION, DISCUSSED WITH PHARM. WHO ADVISED TO ELEVATE AND ADD COMPRESSION IF NEEDED. LR INFUSING AT 200 ML/HR. CONTINUE TO MONITOR AND WILL REPORT TO ONCOMING RN.
[2025-01-10] VITALS (96 sets, daily range): BP systolic 63–177; BP diastolic 44–154
--- NOTE | 2025-01-10 01:48 | NUR ---
SPOKE WITH BERNARD ABOUT PATIENT'S LOW BLOOD PRESSURES AND LOW URINE OUTPUT. HE WILL REVIEW CHART AND PUT IN ORDERS NEEDED.
[2025-01-10] MEDS ORDERED: Lactated Ringer's 500 ML IV ONE (02:00)
[2025-01-10 05:47] LABS: Hematocrit 28.2 % (33.0-51.0); Hemoglobin 9.2 g/dL (11.5-16.0); Mean Corpuscular HGB 30.2 pg (26.0-34.0); Mean Corpuscular HGB Conc 32.6 g/dL (31.5-36.5); Mean Corpuscular Volume 93 fL (80-100); Mean Platelet Volume 11.3 fL (9.1-12.4); Platelet Count 304 K/mm3 (150-400); RDW Coefficient Variation 12.9 % (11.7-14.2); RDW Standard Deviation 43.2 fL (35.1-46.3); Red Blood Cell Count 3.05 M/mm3 (3.80-5.20); White Blood Cell Count 9.76 K/mm3 (4.00-11.30)
--- NOTE | 2025-01-10 05:58 | NUR ---
SHIFT SUMMARY: PT HAS SLEPT THROUGHOUT SHIFT. SHE WAKES PERIODICALLY TO STIMULI BUT IS NOT FOLLOWING COMMANDS. WHEN SHE DOES WAKE SHE BECOMES VERY AGITATED AND RIGID WITH AN INCREASED RESPIRATORY RATE. SHE HAS TOLERATED BIPAP ALL NIGHT. BLOOD PRESSURES WERE AN ISSUE AND LEVOPHED GTT WAS STARTED. PRECEDEX WAS AT 0.1 TO HELP WITH AGITATION BUT IT WAS STOPPED THIS AM TO OBSERVE PT MENTATION AND NEUROS BETTER.
[2025-01-10 06:13] LABS: BAND PERCENT MAN 17 % (0-8); BASOPHILS PERCENT MAN 0 % (0-2); EOSINOPHILS PERCENT MAN 0 % (0-6); LYMPHOCYTES ABSOLUTE MAN 0.87 K/mm3 (0.84-5.20); LYMPHOCYTES PERCENT MAN 9 % (21-46); MONOCYTES ABSOLUTE MAN 0.39 K/mm3 (0.16-1.47); MONOCYTES PERCENT MAN 4 % (4-13); NEUTROPHILS ABSOLUTE MAN 8.49 K/mm3 (1.96-9.15); SEG NEUTROPHILS PERCENT MAN 70 % (41-73); TOTAL CELLS COUNTED 100
[2025-01-10 06:26] LABS: Alanine Aminotransfer (ALT/SGP 15 U/L (12-78); Albumin, Blood 1.6 g/dL (3.4-5.0); Albumin/Globulin Ratio 0.3 (0.8-1.8); Alk Phos 65 U/L (50-136); Anion Gap 16 mmol/L (3-11); Aspartate Aminotrans (AST/SGOT 33 U/L (12-37); Bilirubin, Total 0.5 mg/dL (0.1-1.0); Blood Urea Nitrogen 79 mg/dL (8-24); Bun/Creatinine Ratio 21.6 (12.0-20.0); CO2, Blood 21 mmol/L (21-32); Calcium, Blood 7.9 mg/dL (8.5-10.1); Chloride, Blood 99 mmol/L (98-108); Creatinine, Blood 3.66 mg/dL (0.40-1.00); Globulin, Blood 4.7 g/dL (2.2-4.0); Glomerular Filtration Rate 13 (60-); Glucose, Blood 147 mg/dL (70-99); Magnesium, Blood 1.8 mg/dL (1.6-2.4); Phosphorus, Blood 6.1 mg/dL (2.5-4.9); Potassium, Blood 4.7 mmol/L (3.5-5.5); Sodium, Blood 131 mmol/L (136-145); Total Protein, Blood 6.3 g/dL (6.4-8.2); Vancomycin, Random 18.7 ug/mL
[2025-01-10] MEDS ORDERED: NS 500 ML IV ONE (08:30)
[2025-01-10] MEDS ORDERED: Albumin Human 50 ML IV ONE (08:40)
--- NOTE | 2025-01-10 08:57 | NUR ---
RHYTHM CHANGE AT APPROXIMATELY 0857 PT SELF CONVERTED BACK TO NSR, HR IN 80'S-90'S. BP STABLE. RHYTHM STRIP SAVED TO CHART.
[2025-01-10] MEDS ORDERED: Piperacillin/Tazobactam Sod 4.5 GM in NS 100 ML IV SCH (09:00)
[2025-01-10] MEDS ORDERED: Azithromycin 250 MG in NS 250 ML IV SCH ×2 (09:00→10:31)
[2025-01-10] MEDS ORDERED: Vancomycin HCL 1,500 MG in NS 250 ML IV ONE (09:05)
--- NOTE | 2025-01-10 09:45 | NUR ---
ASSUMED CARE OF PATIENT AT APPROXIMATELY 0700. REPORT RECEIVED FROM MANUELITO WHITTAKER. PT REMAINS VERY MINIMALLY RESPONSIVE TO VERBAL/NOXIOUS STIMULI DURING BEDSIDE REPORT. PRECEDEX IS ON SB SINCE APPROXIMATELY 0620 PER NOC SHIFT NURSE. CONTINUOUS CARDIAC MONITORING SHOWS AFIB, HR IN 100'S-110'S. LEVOPHED INFUSING AT 4 MCG/KG/HR c MAP > 65. ON BIPAP c SETTINGS OF 16/10 AND 70%, O2 SATURATION > 92%. LR INFUSING AT 100 mL/HR. SEE SHIFT ASSESSMENT FOR FULL DETAILS.
[2025-01-10] MEDS ORDERED: FentaNYL Citrate 50 MCG/ML 2 ML Injection ONE (10:54)
--- NOTE | 2025-01-10 10:57 | NUR ---
INTUBATION BiPAP removed due to patient reporting nausea. Placed pt on NC, but she reports dyspnea. RR 33. Dr Rose at bedside, states plan is to proceed with intubation. 1109 - RT Judith, RT Sandi, Dr Ramírez at bedside. 1113 - 4 mg zofran due to pt reporting nausea 1114 - 50 mcg fentanyl given. 30 mg etomidate given. 1116 - Successful intuation #7.5 ETT. 26 cm upper teeth. ETCO2 24. SpO2 97% 100 mg rocuronium given due to pt fighting assisted breath with ETT. Bilat breath sounds auscultated.
[2025-01-10] MEDS ORDERED: propofoL 100 ML IV SCH (11:00)
[2025-01-10] MEDS ORDERED: Ondansetron HCl 2 MG / ML 2ML Vial IV ONE (11:15)
[2025-01-10] MEDS ORDERED: propofoL 100 ML IV PRN (11:20)
[2025-01-10] MEDS ORDERED: FentaNYL Citrate 50 MCG/ML 2 ML Injection IV PRN (11:20)
[2025-01-10] MEDS ORDERED: Hydrogen Peroxide 1.5 % Solution MT SCH (12:00)
[2025-01-10] MEDS ORDERED: Azithromycin 250 MG in NS 250 ML IV ONE (12:00)
[2025-01-10 13:15] LABS: Base Excess Venous -9.3 mmol/L; Bicarbonate Venous 17.4 mmol/L (24.0-30.0); PCO2 Venous 41.5 mmHg (38-42); pH Blood Venous 7.25 (7.34-7.37)
--- NOTE | 2025-01-10 15:15 | NUR ---
OGT PLACEMENT/ADVANCED DR. NIEVES REVIEWED CHEST XR FOR OGT PLACEMENT. DIRECTED TO ADVANCE 3 CM. OGT ADVANCED DIRECTED.
--- NOTE | 2025-01-10 17:59 | NUR ---
SHIFT SUMMARY PT REMAINS INTUBATED, ON SEDATION VIA PROPOFOL INFUSING AT 35 MCG/KG/HR. RASS -4 TO -3. NOT FOLLOWING COMMANDS OR MAKING PURPOSEFUL MOVEMENTS. AFEBRILE. CONTINUOUS CARDIAC MONITORING IN PLACE SHOWS SR, PT STABLE c MAP IN 60'S, LEVOPHED ON SB. VENT SETTINGS VCA 22/350/7/50%. ETT 7.5, 24 AT THE TEETH. OGT INFUSING VHP AT 20mL/HR c 30 mL Q4H FLUSHES. TEMP JARA PATENT. < 100 mL OUT THIS SHIFT. PER DR. ALEXANDER, IF PT DOES NOT START MAKING URINE SOON WE ARE LOOKING AT DIALYSIS IN THE NEXT COUPLE OF DAYS. WILL CONTINUE TO MONITOR AND REPORT TO ONCOMING RN.
[2025-01-10] MEDS ORDERED: Insulin Glargine-Yfgn 100 Unit/mL 3 ML SYR SC ONE (18:05)
--- NOTE | 2025-01-10 18:37 | NUR ---
SHIFT SUMMARY PT REMAINED ALERT, ORIENTED TO ALL EXCEPT DATE/TIME T/O ENTIRETY OF SHIFT. ABLE TO FOLLOW COMMANDS, MAKE PURPOSEFUL MOVEMENTS, AND MAKE NEEDS KNOWN. AFEBRILE AND DENIES PAIN. CONTINUOUS CARDIAC MONITORING IN PLACE SHOWS SR, BP STABLE c MAP > 65. ON RA c O2 SATURATION > 92%. NO BM THIS SHIFT. REINTRODUCED DIET PER DR. SEGUNDO, TOLERATING WELL. TOLERATED PO MEDS WELL. ST EVAL COMPLETE EARLIER THIS SHIFT. PUREWICK IN PLACE. INSULIN INFUSING AT 1.6 U/HR, D5 1/2 NS INFUSING AT 200 mL/HR. WILL CONTINUE TO MONITOR AND REPORT TO ONCOMING RN.
[2025-01-10] MEDS ORDERED: Cetylpyridinium Chloride 1 EA MISC MT SCH (20:00)
[2025-01-10 20:07] LABS: Bun/Creatinine Ratio 22.7 (12.0-20.0); Calcium, Blood 8.2 mg/dL (8.5-10.1); Creatinine, Blood 3.83 mg/dL (0.40-1.00); Potassium, Blood 4.5 mmol/L (3.5-5.5)
[2025-01-10] MEDS ORDERED: Insulin Human Regular 100 UNIT in NS 100 ML IV SCH (21:15)
[2025-01-10] MEDS ORDERED: Sodium Bicarb 8.4% Inj 150 MEQ in Dextrose 5% 1,000 ML IV SCH (22:35)
[2025-01-10 23:19] LABS: Base Excess Venous -6.6 mmol/L; Bicarbonate Venous 19.3 mmol/L (24.0-30.0); PCO2 Venous 39.2 mmHg (38-42); pH Blood Venous 7.31 (7.34-7.37)
[2025-01-11] VITALS (73 sets, daily range): BP systolic 87–151; BP diastolic 37–69
[2025-01-11 02:05] LABS: Bun/Creatinine Ratio 24.5 (12.0-20.0); Calcium, Blood 7.8 mg/dL (8.5-10.1); Creatinine, Blood 4.08 mg/dL (0.40-1.00); Potassium, Blood 3.8 mmol/L (3.5-5.5)
[2025-01-11 06:13] LABS: NRBC ABSOLUTE 0.04 K/mm3 (0.00-0.02); NRBC Auto 0.3 /100 WBC (0.0-0.2); Platelet Count 288 K/mm3 (150-400)
[2025-01-11 06:19] LABS: Hematocrit 24.7 % (33.0-51.0); Hemoglobin 8.3 g/dL (11.5-16.0); Mean Corpuscular HGB 30.4 pg (26.0-34.0); Mean Corpuscular HGB Conc 33.6 g/dL (31.5-36.5); Mean Corpuscular Volume 91 fL (80-100); Mean Platelet Volume 11.2 fL (9.1-12.4); RDW Standard Deviation 42.8 fL (35.1-46.3); Red Blood Cell Count 2.73 M/mm3 (3.80-5.20); White Blood Cell Count 15.21 K/mm3 (4.00-11.30)
--- NOTE | 2025-01-11 06:29 | NUR ---
SHIFT SUMMARY Pt was intubated during the day. Throughout evening she tolerated the vent well without issue. Pt responds to pressure stimuli, not responding purposefully but remains on Propofol sedation. Insulin gtt was started for elevated anion gap and blood sugars and sodium bicarb gtt started as well. Pt continues to make very little urine. Has not gone back into afib at all, remains in sinus rhythm with a stable blood pressure.
[2025-01-11 06:30] LABS: Magnesium, Blood 1.9 mg/dL (1.6-2.4); Phosphorus, Blood 4.1 mg/dL (2.5-4.9)
[2025-01-11 06:36] LABS: Alanine Aminotransfer (ALT/SGP 15 U/L (12-78); Albumin, Blood 1.6 g/dL (3.4-5.0); Albumin/Globulin Ratio 0.4 (0.8-1.8); Alk Phos 99 U/L (50-136); Anion Gap 15 mmol/L (3-11); Aspartate Aminotrans (AST/SGOT 28 U/L (12-37); Bilirubin, Total 0.4 mg/dL (0.1-1.0); Blood Urea Nitrogen 97 mg/dL (8-24); Bun/Creatinine Ratio 23.3 (12.0-20.0); CO2, Blood 23 mmol/L (21-32); Calcium, Blood 7.7 mg/dL (8.5-10.1); Chloride, Blood 98 mmol/L (98-108); Creatinine, Blood 4.16 mg/dL (0.40-1.00); Globulin, Blood 4.3 g/dL (2.2-4.0); Glomerular Filtration Rate 11 (60-); Glucose, Blood 115 mg/dL (70-99); Potassium, Blood 3.6 mmol/L (3.5-5.5); Sodium, Blood 132 mmol/L (136-145); Total Protein, Blood 5.9 g/dL (6.4-8.2); Vancomycin, Random 33.1 ug/mL
[2025-01-11 06:47] LABS: BAND PERCENT MAN 15 % (0-8); BASOPHILS PERCENT MAN 0 % (0-2); EOSINOPHILS PERCENT MAN 0 % (0-6); LYMPHOCYTES ABSOLUTE MAN 0.76 K/mm3 (0.84-5.20); LYMPHOCYTES PERCENT MAN 5 % (21-46); METAMYELOCYTE ABSOLUTE MAN 0.15 K/mm3 (0.00-0.00); METAMYELOCYTE PERCENT MAN 1 % (0-0); MONOCYTES PERCENT MAN 2 % (4-13); NEUTROPHILS ABSOLUTE MAN 13.99 K/mm3 (1.96-9.15); SEG NEUTROPHILS PERCENT MAN 77 % (41-73); TOTAL CELLS COUNTED 100
[2025-01-11] MEDS ORDERED: CefTRIAXone Sodium 1,000 MG in NS 100 ML IV SCH (08:00)
[2025-01-11] MEDS ORDERED: MethylPREDNISolone Sod Succ 125 MG Vial IV SCH (08:00)
[2025-01-11 08:01] LABS: 11-NOR-9-CARBOXY-THC,URN,QUANT 165 ng/mL
[2025-01-11 08:15] LABS: 6-ACETYLMORPHINE, URN, QUANT <10 ng/mL; CODEINE, URN, QUANT <20 ng/mL; HYDROCODONE, URN, QUANT <20 ng/mL; HYDROMORPHONE, URN, QUANT <20 ng/mL; MORPHINE, URN, QUANT <20 ng/mL; NORHYDROCODONE, URN, QUANT <20 ng/mL; NOROXYCODONE, URN, QUANT >4000 ng/mL; NOROXYMORPHONE, URN, QUANT 62 ng/mL; OXYCODONE, URN, QUANT 3511 ng/mL; OXYMORPHONE, URN, QUANT <20 ng/mL
--- NOTE | 2025-01-11 08:38 | NUR ---
START OF SHIFT THIS NURSE ASSUMED CARE AT APPROXIMATELY 0700. PT IS INTUBATED AND SEDATED ON PROPOFOL. PT FOLLOWS COMMANDS AND IS ABLE TO COMMUNICATE IF SHE IS IN PAIN BY SHAKING OR NODDING HER HEAD. PT COMMUNICATED SHE WAS IN PAIN AND WAS TREATED WITH MEDS ON EMAR. INSULIN GTT RESUMED D/T BG 152 WITH A GTT RATE RESTARTING AT 0.75 PER FLOW SHEET. WILL CONTINUE WITH THE PLAN OF CARE.
[2025-01-11] MEDS ORDERED: Azithromycin 250 MG in NS 250 ML IV SCH (09:00)
[2025-01-11] MEDS ORDERED: fentaNYL citrate 1,000 MCG in NS 80 ML IV SCH (10:10)
[2025-01-11 11:47] LABS: Hematocrit 24.9 % (33.0-51.0); Hemoglobin 8.2 g/dL (11.5-16.0); Mean Corpuscular HGB 29.9 pg (26.0-34.0); Mean Corpuscular HGB Conc 32.9 g/dL (31.5-36.5); Mean Corpuscular Volume 91 fL (80-100); Mean Platelet Volume 11.4 fL (9.1-12.4); NRBC ABSOLUTE 0.04 K/mm3 (0.00-0.02); NRBC Auto 0.2 /100 WBC (0.0-0.2); Platelet Count 280 K/mm3 (150-400); RDW Standard Deviation 42.4 fL (35.1-46.3); Red Blood Cell Count 2.74 M/mm3 (3.80-5.20); White Blood Cell Count 17.84 K/mm3 (4.00-11.30)
[2025-01-11 11:57] LABS: Albumin, Blood 1.6 g/dL (3.4-5.0); Albumin/Globulin Ratio 0.4 (0.8-1.8); Bilirubin, Total 0.5 mg/dL (0.1-1.0); Calcium, Blood 7.3 mg/dL (8.5-10.1); Creatinine, Blood 4.08 mg/dL (0.40-1.00); Globulin, Blood 4.3 g/dL (2.2-4.0); Potassium, Blood 4.1 mmol/L (3.5-5.5); Total Protein, Blood 5.9 g/dL (6.4-8.2)
[2025-01-11 12:05] LABS: BAND PERCENT MAN 16 % (0-8); BASOPHILS PERCENT MAN 0 % (0-2); EOSINOPHILS PERCENT MAN 0 % (0-6); LYMPHOCYTES ABSOLUTE MAN 0.71 K/mm3 (0.84-5.20); LYMPHOCYTES PERCENT MAN 4 % (21-46); METAMYELOCYTE ABSOLUTE MAN 0.17 K/mm3 (0.00-0.00); METAMYELOCYTE PERCENT MAN 1 % (0-0); MONOCYTES ABSOLUTE MAN 0.35 K/mm3 (0.16-1.47); MONOCYTES PERCENT MAN 2 % (4-13); MYELOCYTE ABSOLUTE MAN 0.17 K/mm3 (0.00-0.00); MYELOCYTE PERCENT MAN 1 % (0-0); NEUTROPHILS ABSOLUTE MAN 16.41 K/mm3 (1.96-9.15); SEG NEUTROPHILS PERCENT MAN 76 % (41-73); TOTAL CELLS COUNTED 100
[2025-01-11 13:12] LABS: Base Excess Venous -4.5 mmol/L; Bicarbonate Venous 20.6 mmol/L (24.0-30.0); PCO2 Venous 38.8 mmHg (38-42); pH Blood Venous 7.35 (7.34-7.37)
[2025-01-11 13:38] LABS: Bun/Creatinine Ratio 26.5 (12.0-20.0); Calcium, Blood 7.5 mg/dL (8.5-10.1); Creatinine, Blood 4.15 mg/dL (0.40-1.00)
[2025-01-11] MEDS ORDERED: OxyCODONE HCL 5 MG TAB PO PRN (14:50)
[2025-01-11] MEDS ORDERED: Ipratropium/Albuterol SulF 2.5-0.5MG/3 ML Amp INH SCH (16:10)
--- NOTE | 2025-01-11 18:02 | NUR ---
SHIFT SUMMARY PT REMAINS INTUBATED AND SEDATED. PT IS ON A FENTANYL GTT AND PROPOFOL GTT FOR SEDATION. PT WAS ABLE TO OPEN EYES AND FOLLOW COMMANDS AND INDICATED SHE WAS IN PAIN WHILE ON 60 OF PROPOFOL. MD ORDERED FENTANYL GTT. PT HAS SINCE BEEN PROPERLY SEDATED. PT REMAINS OLIGURIC WITH NEPHROLOGY AWARE OF LOW UOP. STATED HE WILL WATCH PT LABS AND UOP TO DETERMINE DIALYSIS NEED TOMORROW OR THE NEXT DAY. WILL CONTINUE WITH THE PLAN OF CARE UNTIL REPORT IS GIVEN.
--- NOTE | 2025-01-11 19:31 | NUR ---
ANTIBIOTIC UPDATE PER PHARMACY PROTOCOL VANCOMYCIN IS BEING HELD D/T KIDNEY FUNCTION. PHARMACY RECOMMENDED CEFTAROLINE FOR MRSA TREATMENT. RELAYED THIS TO DR CENTENO AND SHE AGREED.
[2025-01-11] MEDS ORDERED: CEFTAROLINE FOSAMIL ACETATE IV SCH (20:00)
[2025-01-11] MEDS ORDERED: NS IV SCH (20:00)
[2025-01-11 20:35] LABS: Bun/Creatinine Ratio 26.8 (12.0-20.0); Calcium, Blood 7.9 mg/dL (8.5-10.1); Creatinine, Blood 4.26 mg/dL (0.40-1.00); Potassium, Blood 3.7 mmol/L (3.5-5.5)
[2025-01-11] MEDS ORDERED: Gabapentin 300 MG Cap PO SCH (21:00)
[2025-01-12] VITALS (90 sets, daily range): BP systolic 121–181; BP diastolic 50–91
[2025-01-12 02:37] LABS: Hematocrit 23.6 % (33.0-51.0); Hemoglobin 7.9 g/dL (11.5-16.0); Mean Corpuscular HGB 29.5 pg (26.0-34.0); Mean Corpuscular HGB Conc 33.5 g/dL (31.5-36.5); Mean Corpuscular Volume 88 fL (80-100); Mean Platelet Volume 11.2 fL (9.1-12.4); NRBC ABSOLUTE 0.06 K/mm3 (0.00-0.02); NRBC Auto 0.3 /100 WBC (0.0-0.2); Platelet Count 281 K/mm3 (150-400); Red Blood Cell Count 2.68 M/mm3 (3.80-5.20)
[2025-01-12 02:52] LABS: Alanine Aminotransfer (ALT/SGP 22 U/L (12-78); Albumin, Blood 1.6 g/dL (3.4-5.0); Albumin/Globulin Ratio 0.3 (0.8-1.8); Alk Phos 195 U/L (50-136); Anion Gap 16 mmol/L (3-11); Aspartate Aminotrans (AST/SGOT 37 U/L (12-37); Bilirubin, Total 0.4 mg/dL (0.1-1.0); Blood Urea Nitrogen 120 mg/dL (8-24); Bun/Creatinine Ratio 30.4 (12.0-20.0); CO2, Blood 23 mmol/L (21-32); Calcium, Blood 7.5 mg/dL (8.5-10.1); Chloride, Blood 96 mmol/L (98-108); Creatinine, Blood 3.95 mg/dL (0.40-1.00); Globulin, Blood 4.6 g/dL (2.2-4.0); Glomerular Filtration Rate 12 (60-); Glucose, Blood 234 mg/dL (70-99); Magnesium, Blood 2.2 mg/dL (1.6-2.4); Phosphorus, Blood 4.7 mg/dL (2.5-4.9); Potassium, Blood 3.8 mmol/L (3.5-5.5); Sodium, Blood 131 mmol/L (136-145); Total Protein, Blood 6.2 g/dL (6.4-8.2); Vancomycin, Random 32.9 ug/mL
[2025-01-12 03:21] LABS: BAND PERCENT MAN 9 % (0-8); BASOPHILS PERCENT MAN 0 % (0-2); EOSINOPHILS PERCENT MAN 0 % (0-6); LYMPHOCYTES ABSOLUTE MAN 1.08 K/mm3 (0.84-5.20); LYMPHOCYTES PERCENT MAN 5 % (21-46); MONOCYTES ABSOLUTE MAN 0.21 K/mm3 (0.16-1.47); MONOCYTES PERCENT MAN 1 % (4-13); MYELOCYTE ABSOLUTE MAN 0.21 K/mm3 (0.00-0.00); MYELOCYTE PERCENT MAN 1 % (0-0); NEUTROPHILS ABSOLUTE MAN 20.08 K/mm3 (1.96-9.15); SEG NEUTROPHILS PERCENT MAN 84 % (41-73); TOTAL CELLS COUNTED 100
--- NOTE | 2025-01-12 06:44 | NUR ---
SHIFT SUMMARY PT DID NOT HAVE MUCH CHANGE FROM DAY SHIFT. SHE HAD A FEW EPISODES OF TACHYCARDIA FOLLOWED BY SINUS ARRHYTHMIA THIS AM, A 12 LEAD WAS PERFORMED AND DR WAGNER REVIEWED. STILL SUCTIONING A LOT OF THICK, BLOOD TINGED SECRETIONS FROM ET TUBE. PT REMAINS ON INSULIN GTT, PROPFOL AND FENTANYL GTT.
--- NOTE | 2025-01-12 07:51 | NUR ---
START OF SHIFT THIS NURSE ASSUMED CARE AT APPROXIMATELY 0700. PT REMAINS INTUBATED AND SEDATED ON PROPOFOL AND FENTANYL. PT IS IN NSR SAT ABOVE 94%. INSULIN GTT INFUSING AT THIS TIME. WILL CONTINUE WITH THE PLAN OF CARE.
[2025-01-12 08:58] LABS: Bun/Creatinine Ratio 29.6 (12.0-20.0); Calcium, Blood 8.2 mg/dL (8.5-10.1); Creatinine, Blood 3.75 mg/dL (0.40-1.00); Potassium, Blood 3.6 mmol/L (3.5-5.5)
[2025-01-12] MEDS ORDERED: Gabapentin 300 MG Cap PO SCH (09:00)
[2025-01-12] MEDS ORDERED: Pantoprazole Sodium 40 MG Injection IV SCH (09:00)
--- NOTE | 2025-01-12 09:34 | NUR ---
SEDATION VACATION PT ABLE TO OPEN EYES AND WIGGLE TOES AND SQUEEZE HANDS ON COMMAND. PT WAS ABLE TO NOD AND INDICATE PT IS IN PAIN WHICH WAS TREATED WITH MEDS ON EMAR.
[2025-01-12 11:05] LABS: AMPHETAMINE,URN,QUANT <50 ng/mL; MDA,URN,QUANT <200 ng/mL; MDEA,URN,QUANT <200 ng/mL; MDMA,URN,QUANT <200 ng/mL; METHAMPHETAMINE,URN,QUANT <200 ng/mL; PHENTERMINE,URN,QUANT >5000 ng/mL
[2025-01-12 14:30] LABS: Bun/Creatinine Ratio 31.6 (12.0-20.0); Calcium, Blood 7.7 mg/dL (8.5-10.1); Creatinine, Blood 2.37 mg/dL (0.40-1.00); Potassium, Blood 3.4 mmol/L (3.5-5.5)
[2025-01-12] MEDS ORDERED: Potassium Chloride 40 MEQ in NS 250 ML IV ONE (15:35)
--- NOTE | 2025-01-12 17:15 | NUR ---
SHIFT SUMMARY PT REMAINS INTUBATED AND SEDATED. PT REMAINS ON PROPOFOL AND FENTANYL. PT BECAME HTN, TACHYPNEIC AND TACHYCARDIC WHICH MAINLY RESOLVED WITH PAIN MANAGEMENT. PT HAD INCREASED UOP TOTAL 1400ML DURING SHIFT. PT WENT INTO A BRIEF BIGEMINY RHYTHM THEN WENT BACK INTO NSR. PT INSULIN GTT ONGOING WITH FIRST DOSE OF GLARGINE GIVEN APPROXIMATELY AT 1700. WILL CONTINUE WITH THE PLAN OF CARE.
[2025-01-12] MEDS ORDERED: Insulin Glargine-Yfgn 100 Unit/mL 3 ML SYR SC SCH (18:00)
[2025-01-12 21:12] LABS: Bun/Creatinine Ratio 39.4 (12.0-20.0); Creatinine, Blood 3.15 mg/dL (0.40-1.00)
[2025-01-12 23:51] LABS: Magnesium, Blood 2.4 mg/dL (1.6-2.4)
[2025-01-12] MEDS ORDERED: Labetalol HCL 5 MG/ML 4ML Injection (Single Dose) IV PRN (23:55)
[2025-01-13] VITALS (94 sets, daily range): BP systolic 120–180; BP diastolic 47–73
[2025-01-13 02:08] LABS: Hematocrit 22.9 % (33.0-51.0); Hemoglobin 7.6 g/dL (11.5-16.0); Mean Corpuscular HGB 29.9 pg (26.0-34.0); Mean Corpuscular HGB Conc 33.2 g/dL (31.5-36.5); Mean Corpuscular Volume 90 fL (80-100); NRBC ABSOLUTE 0.08 K/mm3 (0.00-0.02); NRBC Auto 0.5 /100 WBC (0.0-0.2); Platelet Count 284 K/mm3 (150-400); RDW Standard Deviation 43.2 fL (35.1-46.3); Red Blood Cell Count 2.54 M/mm3 (3.80-5.20); White Blood Cell Count 17.26 K/mm3 (4.00-11.30)
[2025-01-13 02:22] LABS: Alanine Aminotransfer (ALT/SGP 27 U/L (12-78); Albumin, Blood 1.5 g/dL (3.4-5.0); Albumin/Globulin Ratio 0.3 (0.8-1.8); Alk Phos 185 U/L (50-136); Anion Gap 14 mmol/L (3-11); Aspartate Aminotrans (AST/SGOT 41 U/L (12-37); Bilirubin, Total 0.3 mg/dL (0.1-1.0); Blood Urea Nitrogen 119 mg/dL (8-24); Bun/Creatinine Ratio 40.5 (12.0-20.0); CO2, Blood 23 mmol/L (21-32); Calcium, Blood 7.6 mg/dL (8.5-10.1); Chloride, Blood 101 mmol/L (98-108); Creatinine, Blood 2.94 mg/dL (0.40-1.00); Globulin, Blood 4.3 g/dL (2.2-4.0); Glomerular Filtration Rate 17 (60-); Glucose, Blood 200 mg/dL (70-99); Magnesium, Blood 2.3 mg/dL (1.6-2.4); Phosphorus, Blood 4.7 mg/dL (2.5-4.9); Potassium, Blood 3.7 mmol/L (3.5-5.5); Sodium, Blood 134 mmol/L (136-145); Total Protein, Blood 5.8 g/dL (6.4-8.2); Vancomycin, Random 27.5 ug/mL
[2025-01-13 02:27] LABS: BAND PERCENT MAN 6 % (0-8); BASOPHILS PERCENT MAN 0 % (0-2); EOSINOPHILS PERCENT MAN 0 % (0-6); LYMPHOCYTES ABSOLUTE MAN 0.86 K/mm3 (0.84-5.20); LYMPHOCYTES PERCENT MAN 5 % (21-46); METAMYELOCYTE ABSOLUTE MAN 0.34 K/mm3 (0.00-0.00); METAMYELOCYTE PERCENT MAN 2 % (0-0); MONOCYTES ABSOLUTE MAN 1.89 K/mm3 (0.16-1.47); MONOCYTES PERCENT MAN 11 % (4-13); NEUTROPHILS ABSOLUTE MAN 14.15 K/mm3 (1.96-9.15); SEG NEUTROPHILS PERCENT MAN 76 % (41-73); TOTAL CELLS COUNTED 100
[2025-01-13] MEDS ORDERED: Calcium Gluconate 10% 1,000 MG in NS 50 ML IV ONE (03:25)
[2025-01-13] MEDS ORDERED: CALCIUM GLUC IN NACL, ISO-OSM 50 ML IV ONE (03:35)
--- NOTE | 2025-01-13 05:56 | NUR ---
SHIFT SUMMARY PATIENT IS INTUBATED AND SEDATED. ET TUBE 7.5 @24CM AT TEETH VENT SETTINGS 22/350/7/45%. PROPOFOL INFUSING @50 AND FENTANYL @ 50MCG. INSUSLIN INFUSING @4U. PATIENT WILL OPEN EYES TO VERBAL STIMUL AND WILL NOD HEAD YES OR NO TO SOME QUESTIONS. PATIENT HAD A FEW RUNS OF TACHYCARDIA AND A SMALL RUN OF VENT BIGEMINY (IN CHART) DR WAGNER AND DR CENTENO AWARE NO NEW ORDERS. SBP 130-150'S. PATIENT HAS TF VITAL HIGH PROTIEN RUNNING @25 WITH A FLUSH OF 30ML Q4. PATEINT HAS JARA WITH OVER A LITER OUT ON SHIFT. PATIENT HAS PICC INE IN LEFT UPPER ARM AND 20G IN LEFT WRIST. PATIENT IS BILATERAL SOFT WRIST RESTRAINTS. CALL LIGHT WITHIN REACH.
[2025-01-13 06:27] LABS: Calcium, Blood 8.1 mg/dL (8.5-10.1); Creatinine, Blood 2.86 mg/dL (0.40-1.00); Potassium, Blood 3.9 mmol/L (3.5-5.5)
--- NOTE | 2025-01-13 07:55 | NUR ---
START OF SHIFT THIS NURSE ASSUMED CARE AT APPROXIMATELY 0700. PT REMAINS INTUBATED AND SEDATED. PT IS ON PROPOFOL, FENTANYL AND AN INSULIN GTT. PT BG THIS AM WAS 148. PT IS IN NSR WITH 02 SAT ABOVE 92% ON 45% FIO2 AND 7 PEEP. WILL CONTINUE WITH THE PLAN OF CARE.
[2025-01-13 09:45] LABS: HEPATITIS B SURFACE ANTIGEN Negative (Negative)
[2025-01-13 10:15] LABS: HEPATITIS B SURFACE ANTIBODY 300.1 IU/L
[2025-01-13 10:46] LABS: HBV CORE ANTIBODIES,TOTAL Negative (Negative)
[2025-01-13] MEDS ORDERED: OxyCODONE HCL 5 MG TAB PT PRN (11:05)
[2025-01-13] MEDS ORDERED: Metoprolol Tartrate 1 MG/ML 5 ML VIAL IV PRN (12:20)
--- NOTE | 2025-01-13 15:38 | NUR ---
UPDATED PT MOVING AND THRASHING. IV IN RIGHT AC QUESTIONABLE. IO PLACED IN THE LEFT TIBULAR PER DR GARCIA. 5MG DRAWN FROM IV GTT AND PUSHED PER DR JOSE CLOUD ALONG WITH 100MCG OF FENTANYL.
[2025-01-13 16:43] LABS: HEPATITIS B SURFACE ANTIGEN Negative (Negative)
--- NOTE | 2025-01-13 17:06 | NUR ---
END OF SHIFT SUMMARY. PT REMAINS INTUBATED AND SEDATED ON PROPOFOL GTT. QTC HIGH, EKG OBTAINED AND PROVIDER NOTIFIED. PT UOP REMAINS ADEQUATE. PT HAD NO EPISODES OF SVT OR BIGEMINY DURING TODAY. PT REMAINS ON INSULIN GTT. WILL CONTINUE WITH THE PLAN OF CARE.
[2025-01-13] MEDS ORDERED: Lactobacil 2-S.Thermo-Bifido 1 1 Cap PT SCH (21:00)
--- NOTE | 2025-01-13 22:40 | NUR ---
ASSUMED CARE: FROM BAUTISTA BILLINGS AT 1900. PT IS INTUBATED/SEDATED. SEDATION DECREASED TO ASSESS NEURO FUNCTION DOWN TO 25MCG/KG/MIN. PT RESPONDS TO PAINFUL STIMULI BUT DOES NOT FOLLOW COMMANDS. PUPILS ARE EQUAL BUT SLUGGISH. PT IS SR IN THE 90'S AND SBP IN THE 170'S. SPO2 90-92% COURSE/WHEEZY IN UPPER LOBES AND DIMINISHED IN BASES. SMALL AMOUNT OF THICK SECRETIONS.VENT SETTINGS: AC/VC 22/350/7/30%. PT HAS A PATENT OG TUBE RUNNING AT 25 ML/HR W/VITAL PROTEIN. TEMP JARA IS PATENT DRAINING TO GRAVITY AND CLEAR YELLOW. NO VISIBLE SKIN ISSUES.PICC LINE IN JEREMY.PROPOFOL INFUSING AT 25MCG/KG/MIN AND INSULIN DRIP STOPPED PER AND TRANSITIONING TO SUB Q INSULIN ON SLIDING SCALE.
[2025-01-14] VITALS (80 sets, daily range): BP systolic 89–183; BP diastolic 42–112
[2025-01-14 04:22] LABS: Hematocrit 25.6 % (33.0-51.0); Hemoglobin 8.5 g/dL (11.5-16.0); Mean Corpuscular HGB 30.2 pg (26.0-34.0); Mean Corpuscular HGB Conc 33.2 g/dL (31.5-36.5); Mean Corpuscular Volume 91 fL (80-100); Mean Platelet Volume 10.8 fL (9.1-12.4); NRBC ABSOLUTE 0.11 K/mm3 (0.00-0.02); NRBC Auto 0.4 /100 WBC (0.0-0.2); Platelet Count 330 K/mm3 (150-400); RDW Coefficient Variation 13.2 % (11.7-14.2); RDW Standard Deviation 44.2 fL (35.1-46.3); Red Blood Cell Count 2.81 M/mm3 (3.80-5.20); White Blood Cell Count 26.08 K/mm3 (4.00-11.30)
[2025-01-14 04:40] LABS: BAND PERCENT MAN 3 % (0-8); BASOPHILS PERCENT MAN 0 % (0-2); EOSINOPHILS PERCENT MAN 0 % (0-6); LYMPHOCYTES ABSOLUTE MAN 1.56 K/mm3 (0.84-5.20); LYMPHOCYTES PERCENT MAN 6 % (21-46); MONOCYTES ABSOLUTE MAN 1.04 K/mm3 (0.16-1.47); MONOCYTES PERCENT MAN 4 % (4-13); MYELOCYTE ABSOLUTE MAN 0.26 K/mm3 (0.00-0.00); MYELOCYTE PERCENT MAN 1 % (0-0); NEUTROPHILS ABSOLUTE MAN 23.21 K/mm3 (1.96-9.15); SEG NEUTROPHILS PERCENT MAN 86 % (41-73); TOTAL CELLS COUNTED 100
[2025-01-14 04:52] LABS: Albumin, Blood 1.7 g/dL (3.4-5.0); Albumin/Globulin Ratio 0.4 (0.8-1.8); Bilirubin, Total 0.3 mg/dL (0.1-1.0); Bun/Creatinine Ratio 52.2 (12.0-20.0); Calcium, Blood 8.2 mg/dL (8.5-10.1); Creatinine, Blood 2.51 mg/dL (0.40-1.00); Globulin, Blood 4.7 g/dL (2.2-4.0); Magnesium, Blood 2.5 mg/dL (1.6-2.4); Phosphorus, Blood 5.4 mg/dL (2.5-4.9); Potassium, Blood 4.3 mmol/L (3.5-5.5); Total Protein, Blood 6.4 g/dL (6.4-8.2)
[2025-01-14] MEDS ORDERED: Metoprolol Tartrate 1 MG/ML 5 ML VIAL IV ONE ×2 (05:00→13:10)
[2025-01-14] MEDS ORDERED: Metoprolol Tartrate 25 MG Tab PT ONE (05:35)
--- NOTE | 2025-01-14 06:02 | NUR ---
SHIFT SUMM: VENT SETTINGS AC/VC 22/350/7/35% AND SPO2 HAS REMAINED 90-94%. PT SR TO A-FIB HR 90'S-150 SBP 130-170'S. PICC TO JEREMY REMAINS PATENT AND INFUSING. HOSPITALIST WAS CALLED AND IV METOPROLOL WAS GIVEN BY RN (SEE EMAR) PT HR CONTINUES TO REMAIN IN 130'S-140'S ORDER GIVEN FOR ONE TIME DOSE OF PO METOPROLOL. PT CONTINUES TO RESPOND TO PAIN STIMULI BUT UNABLE TO FOLLOW COMMANDS. PROPOFOL AT 25 MCG/KG/MIN. PT HAS PATENT OG TUBE AND IS ON CONTINUOUS FEEDS AT 25 MLS/HR. PT HAS PATENT JARA THAT IS DRAINING TO GRAVITY. PT HAS HAD NO BM THIS SHIFT AND RECIEVED A BED BATH W/CATH CARE COMPLETE. SKIN REMAINS INTACT.
--- NOTE | 2025-01-14 08:00 | NUR ---
Reagan of care: Opens eyes to sternal rub, does not move extremities to pain or command. Pupils equal/reactive. Propofol being weaned for RASS -2, currently at 25 mcgs/kg/min. In NSR in 80-90s. SBP 160s. On ACVC 22/350/7/35%. Johnson cath & OGT in place. TF infusing per orders. PICC line to RUE. Will continue to monitor.
[2025-01-14] MEDS ORDERED: Gabapentin 250 MG/5 ML ORAL SYRINGE PT SCH (09:00)
[2025-01-14] MEDS ORDERED: Lisinopril 10 MG Tab PO SCH (11:00)
[2025-01-14] MEDS ORDERED: Atenolol 50 MG Tab PO SCH ×2 (11:00→14:25)
[2025-01-14] MEDS ORDERED: HydrALAZINE HCl 20 MG / ML 1ML Vial IV PRN (12:05)
[2025-01-14] MEDS ORDERED: LORazepam 2 MG/ML 1ML Injection IV PRN (13:00)
[2025-01-14] MEDS ORDERED: OxyCODONE HCL 5 MG TAB PT SCH ×2 (13:01→21:00)
[2025-01-14] MEDS ORDERED: LORazepam 2 MG/ML 1ML Injection ONE (13:02)
[2025-01-14 13:46] LABS: Anti-Xa UFH, PHA Monitoring 0.31 IU/mL; International Normalized Ratio 0.97; Prothrombin Time Results 10.4 Sec (9.7-11.5)
[2025-01-14] MEDS ORDERED: Heparin Sodium 5000 Units/ML 1ML MDV IV ONE ×2 (13:50→22:20)
[2025-01-14] MEDS ORDERED: Heparin Sodium,Porcine/0.5 NS 500 ML IV SCH (13:50)
[2025-01-14] MEDS ORDERED: dilTIAZem HCL 125 MG in Dextrose 5% 100 ML IV SCH (15:10)
[2025-01-14] MEDS ORDERED: NS 500 ML IV ONE ×2 (15:55→17:00)
[2025-01-14] MEDS ORDERED: Insulin Glargine-Yfgn 100 Unit/mL 3 ML SYR SC SCH (18:00)
[2025-01-14] MEDS ORDERED: MethylPREDNISolone Sod Succ 40 MG VIAL IV SCH (18:00)
[2025-01-14] MEDS ORDERED: Insulin Regular 100 UNIT/ML 10ML Vial SC SCH ×2 (18:00)
--- NOTE | 2025-01-14 18:01 | NUR ---
End of shift summary: Was very sedate this morning on 25 mcgs/kg/hr of propofol with minimal response to sternal rub & no movement of extremities. Attempted to wean sedation with poor results. She became tachypneic in the 50s, with HR to 150s, de-saturation to 90%, & elevated peak pressures. Required prn fentanyl, ativan, increase in propofol, & initiation of precedex in order to normalize respiratory status. She is currently on 20 mcgs/kg/min of propofol & 0.6 mcgs/kg/hr of precedex. Arouses to pain only. HR remains in 140s, Dr. Espinal aware. EKG obtained which shows normal sinus tach. Cardizem gtt ordered but blood pressures decreased requiring norepi gtt which is currently at 4 mcgs/min. Also received 5mg of lopressor. On ACVC 22/350/7/45%. Copious secretions via ETT. OGT with TF infusing at goal. Johnson with good urine output throughout the shift though it did decrease in late afternoon. 1L fluid bolus administered. PICC to NIKKY. Dr. Espinal to bs multiple times throughout the day. Heparin gtt also infusing at 15 units/kg/hr. Will continue to monitor.
--- NOTE | 2025-01-14 22:14 | NUR ---
ASSUMPTION OF CARE: ASSUMED CARE OF PT AT 1900 FROM JANENE BILLINGS. PT INTUBATED AND SEDATED. SEDATION TURNED OFF AT 1999 FOR NEURO ASSESSMENT. PT NOT RESPNDING TO PAIN OR VERBAL STIMULI. OPENS EYES SPONTANEOUSLY BUT DOES NOT APPEAR TO BE PURPOSEFUL. CORNEAL REFLEX INTACT. PUPILS NON REACTIVE. LEFT PUPIL SMALLER THAN RIGHT, DR. GARCIA AWARE. HEPARIN GTT AT 15 UNITS/KG/HR. VENT SETTINGS AC/VC 22/350/7/45%. SPO2 92-94%. LUNGS COARSE/WHEEZY. MODERATE AMOUNT OF THICK/REDDISH SECRETIONS NOTED FROM ETT. HEALTHCARE ECONOMICS MANAGER IN PLACE, AFIB WITH HR 110-130'S. SBP 130-140 WITH MAP >65. LEVOPHED GTT SET TO SB. PT CONVERTED TO SR WITH HR 80-90'S AT 2099. CARDIZEM GTT AT 10 MG/HR. JARA PATENT AND DRAINING TO GRAVITY, TEMP 100.5. NO BM YET. OGT INFUSING VHP AT 40 ML/HR. PICC TO JEREMY PATENT. BED LOW AND LOCKED.
[2025-01-14] MEDS ORDERED: Dose Adjust by Pharmacy XX STA (22:20)
[2025-01-15] VITALS (89 sets, daily range): BP systolic 134–216; BP diastolic 41–97
[2025-01-15 05:09] LABS: Hematocrit 24.1 % (33.0-51.0); Hemoglobin 8.1 g/dL (11.5-16.0); Mean Corpuscular HGB 30.5 pg (26.0-34.0); Mean Corpuscular HGB Conc 33.6 g/dL (31.5-36.5); Mean Corpuscular Volume 91 fL (80-100); Mean Platelet Volume 10.8 fL (9.1-12.4); NRBC ABSOLUTE 0.03 K/mm3 (0.00-0.02); NRBC Auto 0.1 /100 WBC (0.0-0.2); Platelet Count 285 K/mm3 (150-400); RDW Coefficient Variation 13.2 % (11.7-14.2); Red Blood Cell Count 2.66 M/mm3 (3.80-5.20); White Blood Cell Count 25.27 K/mm3 (4.00-11.30)
[2025-01-15 05:29] LABS: BAND PERCENT MAN 7 % (0-8); BASOPHILS PERCENT MAN 0 % (0-2); EOSINOPHILS PERCENT MAN 0 % (0-6); LYMPHOCYTES ABSOLUTE MAN 0.75 K/mm3 (0.84-5.20); LYMPHOCYTES PERCENT MAN 3 % (21-46); METAMYELOCYTE PERCENT MAN 2 % (0-0); MONOCYTES ABSOLUTE MAN 1.01 K/mm3 (0.16-1.47); MONOCYTES PERCENT MAN 4 % (4-13); MYELOCYTE ABSOLUTE MAN 0.25 K/mm3 (0.00-0.00); MYELOCYTE PERCENT MAN 1 % (0-0); NEUTROPHILS ABSOLUTE MAN 22.74 K/mm3 (1.96-9.15); SEG NEUTROPHILS PERCENT MAN 83 % (41-73); TOTAL CELLS COUNTED 100
[2025-01-15] MEDS ORDERED: Dose Adjust by Pharmacy XX STA ×2 (05:33→13:30)
[2025-01-15] MEDS ORDERED: Heparin Sodium 5000 Units/ML 1ML MDV IV ONE ×2 (05:35→21:05)
[2025-01-15 05:38] LABS: Albumin, Blood 1.5 g/dL (3.4-5.0); Anion Gap 16 mmol/L (3-11); Blood Urea Nitrogen 126 mg/dL (8-24); CO2, Blood 20 mmol/L (21-32); Calcium, Blood 8.2 mg/dL (8.5-10.1); Chloride, Blood 106 mmol/L (98-108); Glomerular Filtration Rate 25 (60-); Glucose, Blood 363 mg/dL (70-99); Phosphorus, Blood 6.1 mg/dL (2.5-4.9); Potassium, Blood 5.2 mmol/L (3.5-5.5); Sodium, Blood 137 mmol/L (136-145)
--- NOTE | 2025-01-15 06:29 | NUR ---
SHIFT SUMMARY: PT REMAINS INTUBATED. SEDATION REMAINS OFF SINCE 1999. PT OPENS EYES, DOES NOT TRACK OR FOLLOW COMMANDS. HAS MINIMAL RESPONSE TO PAINFUL STIMULI. PUPILS REACTIVE AT TIMES AND NON-REACTIVE AT TIMES. LEFT PUPIL CONTINUES TO REMAIN SLIGHTLY SMALLER THAN RIGHT. VENT SETTINGS AC/VC 22/350/7/40%. SUCTIONING THICK, RED SECRETIONS FROM ETT. SPO2 92-96% THIS SHIFT. PT REMAINS COARSE AND WHEEZY T/O THE SHIFT. LOADER DEMOLDER IN PLACE, SR SINCE 2099, CARDIZEM TITRATED OFF THIS SHIFT. SBP 130-150'S. PICC TO JEREMY PATENT AND INFUSING. HEPARIN GTT AT 21 UNITS/KG/HR. JARA PATENT AND DRAINING TO GRAVITY. PT TEMP 100.5 TMAX. CURRENTLY 97.9. TUBE FEED AT GOAL THROUGH OGT. BED LOW AND LOCKED.
--- NOTE | 2025-01-15 08:18 | NUR ---
START OF SHIFT THIS NURSE ASSUMED CARE AT APPROXIMATELY 0710. PT IS INTUBATED AND NOT SEDATED. THIS RN GOT IN REPORT THAT SHE WENT INTO AFIB AND THEN EXPERIENCED A NEURO CHANGE IN THE LAST 24 HOURS AND MD IS AWARE. PT DOES NOT FOLLOW COMMANDS. PUPILS APPEAR BRISK WITH R 3.5MM WITH L 3MM. PT WILL GRIMACE TO PAIN. PT IS OUT OF RESTRAINTS WITH RR AT 30'S. PT HAS BEEN OFF SEDATION SINCE 01/14 AT 1999. HEPARIN GTT IS INFUSING D/T PREVIOUS AFIB. WILL CONTINUE WITH THE PLAN OF CARE.
[2025-01-15] MEDS ORDERED: Lisinopril 10 MG Tab PT SCH (09:00)
[2025-01-15] MEDS ORDERED: Atenolol 50 MG Tab PO SCH (09:00)
--- NOTE | 2025-01-15 11:52 | NUR ---
NEURO STATUS PT HAD CT SCAN OF HEAD, SEE CHART FOR RESULTS. PT IS NOW HTN 170-190'S SYS. PT COLOR IN FACE IS NO LONGER FLUSH AND IS NOW PINK AT BASELINE. PT ABLE TO FOLLOW COMMANDS IN ALL EXTREMETIES BUT IS WEAK IN THE UPPERS. MD STATED TO ALLOW PERMISIVE HTN UP TO 180 SYS. PT REMAINS TO BE IN NSR 80'S. PUPILS ARE BOTH BRISK AND 3MM. WILL CONTINUE WITH THE PLAN OF CARE.
--- NOTE | 2025-01-15 18:00 | NUR ---
SHIFT SUMMARY PT REMAINS INTUBATED AND ON 10 OF PROPOFOL. PT WAS ABLE TO WAKE UP AFTER CT AND FOLLOW COMMANDS IN ALL EXTREMETIES. ANOTHER SEDATION VACATION WAS ATTEMPTED IN THE AFTERNOON BUT FAILED D/T PT BREATHING 40-50 A MIN AND HTN WITH BP SYS IN THE 190'S. THIS NURSE WILL CONTINUE WITH THE PLAN OF CARE.
--- NOTE | 2025-01-15 19:30 | NUR ---
PT STATUS: RT AT BEDSIDE, THIS RN RECEIVING REPORT FROM DAY SHIFT RN. PER DAY SHIFT RN, PT CONTINUES TO HAVE SMALL AMOUNT OF BRIGHT RED SECRETIONS AFTER IN-LINE SUCTIONING. NOTED BRIGHT RED SECRETIONS WHEN RT SUCTIONED. THIS RN TO CONTINUE TO MONITOR AND FOLLOW PLAN OF CARE.
--- NOTE | 2025-01-15 21:00 | NUR ---
ASSUMPTION OF CARE: ASSUMED CARE OF PT AT 1915. PT REMAINS SEDATED AND INTUBATED. PT OPENS EYES SPONTANEOUSLY TO VOICE, DOES NOT FOLLOW GAZE, DOES NOT FOLLOW COMMANDS. PT CALM, COUGHS OCCASSIONALLY BUT TOLERATING VENT. VENT SETTINGS AC/VC 22/350/5/30%. PT LUNGS COARSE AND WHEEZY THROUGHOUT. O2 SATS 94%. RESP RATE 38. HR 90S. SINUS. SBP 170S. ABD SLIGHTLY DISTENDED, FIRM, BOWEL TONES HYPOACTIVE. PT HAS OG TUBE WITH VHP RUNNING IN AT 40ML/HR, GOAL. RECTAL TUBE IN PLACE. TEMP JARA IN PLACE, PATENT, DRAINING YELLOW URINE TO GRAVITY. PT HAS PICC LINE IN JEREMY. INFUSING HEPARIN 22UNITS/KG/MIN AND PROPOFOL 10MCG/KG/MIN. THIS RN TO CONTINUE TO MONITOR.
[2025-01-15] MEDS ORDERED: Linezolid 600MG/Iso-Dext 300ML 300 ML IV SCH (21:30)
[2025-01-16] VITALS (90 sets, daily range): BP systolic 136–196; BP diastolic 33–78
[2025-01-16 03:41] LABS: Hemoglobin 7.7 g/dL (11.5-16.0); Mean Corpuscular HGB 30.4 pg (26.0-34.0); Mean Corpuscular HGB Conc 33.5 g/dL (31.5-36.5); Mean Corpuscular Volume 91 fL (80-100); Platelet Count 312 K/mm3 (150-400); RDW Coefficient Variation 13.3 % (11.7-14.2); RDW Standard Deviation 44.4 fL (35.1-46.3); Red Blood Cell Count 2.53 M/mm3 (3.80-5.20); White Blood Cell Count 19.76 K/mm3 (4.00-11.30)
[2025-01-16 04:03] LABS: Albumin, Blood 1.4 g/dL (3.4-5.0); Anion Gap 12 mmol/L (3-11); Blood Urea Nitrogen 121 mg/dL (8-24); Bun/Creatinine Ratio 71.2 (12.0-20.0); CO2, Blood 21 mmol/L (21-32); Chloride, Blood 107 mmol/L (98-108); Glomerular Filtration Rate 32 (60-); Glucose, Blood 346 mg/dL (70-99); Phosphorus, Blood 5.3 mg/dL (2.5-4.9); Potassium, Blood 4.3 mmol/L (3.5-5.5); Sodium, Blood 136 mmol/L (136-145)
[2025-01-16 04:06] LABS: BAND PERCENT MAN 11 % (0-8); BASOPHILS PERCENT MAN 0 % (0-2); EOSINOPHILS PERCENT MAN 0 % (0-6); LYMPHOCYTES ABSOLUTE MAN 0.19 K/mm3 (0.84-5.20); LYMPHOCYTES PERCENT MAN 1 % (21-46); MONOCYTES ABSOLUTE MAN 0.19 K/mm3 (0.16-1.47); MONOCYTES PERCENT MAN 1 % (4-13); NEUTROPHILS ABSOLUTE MAN 19.36 K/mm3 (1.96-9.15); SEG NEUTROPHILS PERCENT MAN 87 % (41-73); TOTAL CELLS COUNTED 100
[2025-01-16] MEDS ORDERED: Dose Adjust by Pharmacy XX STA ×2 (05:03→12:52)
--- NOTE | 2025-01-16 05:20 | NUR ---
SHIFT SUMMARY: PT REMAINS INTUBATED AND SEDATED. PT CONTINUOUS TO OPEN EYES SPONTANEOUSLY, DOES NOT FOLLOW COMMANDS. LUNGS COARSE AND WHEEZING AUSCULTATED T/O. VENT SETTINGS AC/VC 22/350/5/30%. RESPIRATORY RATE HIGH 20S. SATS >90%. PT CONTINUES TO HAVE SMALL AMOUNTS OF BRIGHT RED SPUTUM WITH IN-LINE SUCTIONING. HR HAS BEEN IN 60-80S THIS SHIFT. SBP 140S-160S. SINUS. PT HAS RECTAL TUBE IN PLACE, DRAINING BROWNISH LOOKING STOOL. TEMP JARA REMAINS IN PLACE, PATENT, DRAINING TO GRAVITY. PHOTOS OF REDDENED SKIN AREAS TAKEN THIS SHIFT. NO OPEN SORES NOTED. PICC LINE REMAINS IN JEREMY. INFUSING IS PROPOFOL AT 10MCG/KG/HR AND HEPARING AT 24 UNITS/KG/HR. THIS RN TO REPORT TO ONCOMING RN.
--- NOTE | 2025-01-16 08:23 | NUR ---
START OF SHIFT THIS NURSE ASSUMED CARE AT APPROXIMATELY 0700. PT REMAINS INTUBATED AND SEDATED ON 10 OF PROPOFOL. PT HAS NO S/S OF PAIN OR DISCOMFORT AT THIS TIME. SEDATION PAUSED AND PT ABLE TO OPEN EYES SPONT. AND FOLLOW COMMANDS IN THE LOWER EXTREMETIES BUT SHOWS EXTREME WEAKNESS IN THE BLUE. WILL CONTINUE WITH THE PLAN OF CARE.
[2025-01-16] MEDS ORDERED: NS 1,000 ML IV ONE (13:08)
--- NOTE | 2025-01-16 18:05 | NUR ---
SHIFT SUMMARY PT REMAINS INTUBATED ON PROPOFOL AND A HEPARIN GTT. PT ABLE TO OPEN EYES TO VOICE AND INTERMITTENTLY FOLLOWS COMMANDS. NERISSA PERFORMED TODAY. NO OTHER ACUTE EVENTS TODAY. WILL CONTINUE WITH THE PLAN OF CARE.
[2025-01-16] MEDS ORDERED: Clarify Drug Order XX ONE (18:50)
--- NOTE | 2025-01-16 19:30 | NUR ---
ASSESSMENT/ASSUMED CARE PT INTUBATED AND SEDATED. MOVES HEAD TO VERBAL STIMULI BUT WILL NOT OPEN EYES OR FOLLOW INSTRUCTIONS. MOVES LEFT HAND WITH ORAL CARE AND OPENS EYES AT THAT TIME. LUNGS COARSE WITH WHEEZES. VENT SETTINGS AC/VC 22/350/5/30%. RT SUCTIONED ET TUBE FOR SMALL AMT SECRECTIONS. ORAL CARE DONE. HEART RATE REGULAR IN THE 80'S. BP ELEVATED WITH CARE. PT RECEIVED HYDRALAZINE AT CHANGE OF SHIFT. 1+ EDEMA TO HANDS/FEET. BT+ ABD ROUND AND SOFT. OG AT 68 CM WITH TUBE FEED VITAL HP AT GOAL RATE 35 ML/HR, WATER 30 ML Q4HR. PICC LINE TO LEFT UPPER ARM, DRSG INTACT. PROPOFOL AT 20 MCQ/KG/MIN AND HEPARIN GTT AT 24 UNITS/KG/HR. JARA CATH PATENT DRAINING YELLOW URINE. RECTAL TUBE LEAKING AROUND TUBE. JEREMY CARE DONE AND TUBE REPOSITONED. BROWN LIQUID STOOL IN TUBE. RED RICH TO RIGHT FOREARM, SEE PHOTOS. RED AREA TO COCCYX. CREAM APPLIED AND PT TURNED OFF COCCYX WITH 30 DEGREE WEDGES. PANUS WITH RED LINE ON LEFT SIDE. SILVER CLOTH IN PLACE. PT REPOSITIONED.
[2025-01-16] MEDS ORDERED: Protein Supplement 30 ML UD PT SCH (21:00)
[2025-01-17] VITALS (61 sets, daily range): BP systolic 120–186; BP diastolic 37–106
[2025-01-17 01:11] LABS: BASOPHILS ABSOLUTE AUTO 0.02 K/mm3 (0.00-0.23); BASOPHILS PERCENT AUTO 0 % (0-2); EOSINOPHILS PERCENT AUTO 0 % (0-6); Hematocrit 23.9 % (33.0-51.0); Hemoglobin 7.7 g/dL (11.5-16.0); IMMATURE GRAN ABSOLUTE AUTO 0.65 K/mm3 (0.00-0.10); IMMATURE GRAN PERCENT AUTO 4 % (0-1); LYMPHOCYTES ABSOLUTE AUTO 0.66 K/mm3 (0.84-5.20); LYMPHOCYTES PERCENT AUTO 4 % (21-46); MONOCYTES ABSOLUTE AUTO 0.76 K/mm3 (0.16-1.47); MONOCYTES PERCENT AUTO 4 % (4-13); Mean Corpuscular HGB Conc 32.2 g/dL (31.5-36.5); Mean Corpuscular Volume 93 fL (80-100); Mean Platelet Volume 10.7 fL (9.1-12.4); NEUTROPHILS ABSOLUTE AUTO 15.51 K/mm3 (1.96-9.15); NEUTROPHILS PERCENT AUTO 88 % (41-73); Platelet Count 356 K/mm3 (150-400); RDW Coefficient Variation 13.4 % (11.7-14.2); RDW Standard Deviation 44.9 fL (35.1-46.3); Red Blood Cell Count 2.57 M/mm3 (3.80-5.20)
[2025-01-17 01:31] LABS: Albumin, Blood 1.5 g/dL (3.4-5.0); Anion Gap 13 mmol/L (3-11); Blood Urea Nitrogen 122 mg/dL (8-24); Bun/Creatinine Ratio 71.3 (12.0-20.0); CO2, Blood 22 mmol/L (21-32); Calcium, Blood 8.5 mg/dL (8.5-10.1); Chloride, Blood 112 mmol/L (98-108); Creatinine, Blood 1.71 mg/dL (0.40-1.00); Glomerular Filtration Rate 32 (60-); Glucose, Blood 273 mg/dL (70-99); Phosphorus, Blood 5.7 mg/dL (2.5-4.9); Potassium, Blood 4.6 mmol/L (3.5-5.5); Sodium, Blood 142 mmol/L (136-145)
[2025-01-17] MEDS ORDERED: Clarify Drug Order XX ONE (01:55)
[2025-01-17] MEDS ORDERED: Ceftaroline Fosamil Acetate 400 MG in NS 250 ML IV SCH (04:00)
--- NOTE | 2025-01-17 05:43 | NUR ---
SHIFT SUMMARY PT CONT INTUBATED AND ON [facility] VENT. RT CHANGED VENT SETTINGS TO AC/VC 20/400/8/30% DUE TO POOR TV AND FOR BETTER COMPLIANCE WITH VENT. LUNGS COARSE THROUGHTOUT AND WITH WHEEZES. SUCTIONED THICK SECRECTIONS VIA ET TUBE. HEART RATE CONT 70-90'S. BP STABLE. CONT TUBE FEED AT GOAL RATE. PICC LINE TO LEFT UPPER ARM WITH PROPOFOL AT 20 MCQ/KG/MIN AND HEPARIN AT 24 UNITS/KG/HR. PT TURNED SIDE TO SIDE USING 30 DEGREE WEDGES TO KEEP OFF COCCYX. SMALL AMT LEAKING NOTED AROUND RECTAL TUBE. AREA CLEANED AND DRIED. BARRIER CREAM APPLIED. REPORT TO ON COMING NURSE
[2025-01-17] MEDS ORDERED: Furosemide 10 MG / ML 2ML Vial IV ONE (09:40)
[2025-01-17] MEDS ORDERED: Acetaminophen 160MG / 5ML 10.15 UDC PT PRN (12:40)
[2025-01-17] MEDS ORDERED: FentaNYL Citrate 50 MCG/ML 2 ML Injection IV PRN (12:40)
--- NOTE | 2025-01-17 18:21 | NUR ---
Summary. Pt continues on the ventilator. Sedation off at this time. Pt somnolent but arousable, very weak, will close/open eyes on command but appears too weak to move extremities. No acute events this shift. See chart for further details.
[2025-01-17 23:01] LABS: EDDP,URN,QUANT >5000 ng/mL; METHADONE,URN,QUANT >5000 ng/mL
[2025-01-18] VITALS (46 sets, daily range): BP systolic 138–186; BP diastolic 39–95
[2025-01-18 03:48] LABS: BASOPHILS ABSOLUTE AUTO 0.03 K/mm3 (0.00-0.23); BASOPHILS PERCENT AUTO 0 % (0-2); EOSINOPHILS ABSOLUTE AUTO 0.01 K/mm3 (0.00-0.68); EOSINOPHILS PERCENT AUTO 0 % (0-6); Hematocrit 24.5 % (33.0-51.0); Hemoglobin 7.8 g/dL (11.5-16.0); IMMATURE GRAN PERCENT AUTO 2 % (0-1); LYMPHOCYTES ABSOLUTE AUTO 1.12 K/mm3 (0.84-5.20); LYMPHOCYTES PERCENT AUTO 6 % (21-46); MONOCYTES ABSOLUTE AUTO 1.49 K/mm3 (0.16-1.47); MONOCYTES PERCENT AUTO 7 % (4-13); Mean Corpuscular HGB 29.3 pg (26.0-34.0); Mean Corpuscular HGB Conc 31.8 g/dL (31.5-36.5); Mean Corpuscular Volume 92 fL (80-100); Mean Platelet Volume 10.1 fL (9.1-12.4); NEUTROPHILS ABSOLUTE AUTO 17.16 K/mm3 (1.96-9.15); NEUTROPHILS PERCENT AUTO 85 % (41-73); NRBC ABSOLUTE 0.02 K/mm3 (0.00-0.02); NRBC Auto 0.1 /100 WBC (0.0-0.2); Platelet Count 444 K/mm3 (150-400); RDW Coefficient Variation 13.6 % (11.7-14.2); RDW Standard Deviation 45.6 fL (35.1-46.3); Red Blood Cell Count 2.66 M/mm3 (3.80-5.20); White Blood Cell Count 20.11 K/mm3 (4.00-11.30)
[2025-01-18 04:12] LABS: Albumin, Blood 1.7 g/dL (3.4-5.0); Anion Gap 11 mmol/L (3-11); Blood Urea Nitrogen 125 mg/dL (8-24); Bun/Creatinine Ratio 71.4 (12.0-20.0); CO2, Blood 22 mmol/L (21-32); Calcium, Blood 8.4 mg/dL (8.5-10.1); Chloride, Blood 114 mmol/L (98-108); Creatinine, Blood 1.75 mg/dL (0.40-1.00); Glomerular Filtration Rate 31 (60-); Glucose, Blood 112 mg/dL (70-99); Phosphorus, Blood 5.5 mg/dL (2.5-4.9); Potassium, Blood 4.2 mmol/L (3.5-5.5); Sodium, Blood 143 mmol/L (136-145)
[2025-01-18] MEDS ORDERED: Dose Adjust by Pharmacy XX STA ×2 (04:43→11:53)
--- NOTE | 2025-01-18 05:19 | NUR ---
NOC SHIFT SUMMARY NO ACUTE EVENTS OVERNIGHT. PT ROUSES EASILY TO VERBAL STIMULI AND TRACKS THIS RN W/ HER EYES. ABLE TO ANSWER YES/NO QUESTIONS WHEN PROMPTED. SEDATION REMAINED ON STANDBY T/O SHIFT. PT REQUIRED MULTIPLE DOSES OF PRN PAIN MEDICATION W/ GOOD EFFECT. PT HAS HEPARIN INFUSING AT 25UNITS/KG/HR- DOSING MANAGED PER PHARMACY. VENT SETTINGS UNCHAGED DURING SHIFT: VCA 18/450/8/30%. SMALL AMOUNTS OF YELLOW SPUTUM VIA ETT. PT COUGHING OVER VENT FREQUENTLY. LUNGS COARSE T/O. NSR VIA OPERATIONS PROFESSIONAL, RATE OF 60-70S. PT WAS HYPERTENSIVE DURING SHIFT W/ SYSTOLIC BP OF 180S REQUIRING ONE DOSE OF PRN HYDRALAZINE. TMAX OF 99.9, FAN APPLIED AND BLANKETS REMOVED AND TEMP RESOLVED. TEMP PROBE JARA PATENT AND DRAINING CLEAR YELLOW URINE TO GRAVITY. NO OUTPUT VIA RECTAL TUBE- REMOVED DURING SHIFT. VHP TUBE FEEDING RUNNING AT GOAL, PT TOLERATING WELL. PT RECIEVED BED BATH AND WAS TURNED Q2 HOURS FOR SKIN INTEGRITY. CALL LIGHT W/ IN REACH. PLAN OF CARE ONGOING.
[2025-01-18] MEDS ORDERED: Furosemide 10 MG / ML 2ML Vial IV ONE ×2 (08:20→08:45)
[2025-01-18] MEDS ORDERED: Albumin Human 50 ML IV ONE (08:40)
[2025-01-18] MEDS ORDERED: MethylPREDNISolone Sod Succ 40 MG VIAL IV SCH (09:00)
[2025-01-18] MEDS ORDERED: Dextrose 5% 1,000 ML IV SCH (09:30)
[2025-01-18] MEDS ORDERED: Insulin Regular 100 UNIT/ML 10ML Vial SC SCH (12:00)
--- NOTE | 2025-01-18 18:23 | NUR ---
Summary. Pt continues ventilated via ETT. No significant changes this shift. Pt appears slightly more responsive, able to follow simple commands. Pt still very weak. No acute events this shift. Rectal tube inserted for liquid stools. See chart for further details.
[2025-01-19] VITALS (108 sets, daily range): BP systolic 104–213; BP diastolic 31–105
[2025-01-19 04:04] LABS: BASOPHILS ABSOLUTE AUTO 0.02 K/mm3 (0.00-0.23); BASOPHILS PERCENT AUTO 0 % (0-2); EOSINOPHILS ABSOLUTE AUTO 0.03 K/mm3 (0.00-0.68); EOSINOPHILS PERCENT AUTO 0 % (0-6); Hematocrit 23.6 % (33.0-51.0); Hemoglobin 7.5 g/dL (11.5-16.0); IMMATURE GRAN ABSOLUTE AUTO 0.12 K/mm3 (0.00-0.10); IMMATURE GRAN PERCENT AUTO 1 % (0-1); LYMPHOCYTES ABSOLUTE AUTO 0.69 K/mm3 (0.84-5.20); LYMPHOCYTES PERCENT AUTO 4 % (21-46); MONOCYTES PERCENT AUTO 6 % (4-13); Mean Corpuscular HGB 29.8 pg (26.0-34.0); Mean Corpuscular HGB Conc 31.8 g/dL (31.5-36.5); Mean Corpuscular Volume 94 fL (80-100); Mean Platelet Volume 10.4 fL (9.1-12.4); NEUTROPHILS PERCENT AUTO 89 % (41-73); Platelet Count 395 K/mm3 (150-400); RDW Coefficient Variation 13.7 % (11.7-14.2); Red Blood Cell Count 2.52 M/mm3 (3.80-5.20); White Blood Cell Count 16.26 K/mm3 (4.00-11.30)
[2025-01-19 04:27] LABS: Albumin, Blood 1.9 g/dL (3.4-5.0); Albumin/Globulin Ratio 0.5 (0.8-1.8); Bilirubin, Total 0.3 mg/dL (0.1-1.0); Bun/Creatinine Ratio 80.3 (12.0-20.0); Calcium, Blood 8.2 mg/dL (8.5-10.1); Creatinine, Blood 1.57 mg/dL (0.40-1.00); Magnesium, Blood 2.1 mg/dL (1.6-2.4); Total Protein, Blood 5.9 g/dL (6.4-8.2)
[2025-01-19] MEDS ORDERED: Clarify Drug Order XX ONE (04:55)
--- NOTE | 2025-01-19 06:42 | NUR ---
SHIFT SUMMARY: NO ACUTE CHANGES OVERNIGHT, PT CONTINUES ON VENT W/OUT SEDATION AND SHE IS TOLERATING THIS APPROPRIATLEY. PT RESPONDS TO VERBAL STIMULI AND IS ABLE TO COMMUNICATE YES OR NO WITH SHAKING AND NODDING OF HER HEAD. PT WAS GIVEN PRN ACETAMINOPHEN @ 0030 FOR PAIN DURING REPOSITIONING AND PRN FENTANYL @ 0230 FOR PAIN DURING BED BATH AND REPOSITIONING. VHP HAS BEEN RUNNING AT 45ML/HR TORUGHOUT THE NIGHT. CATHETER IS DRAINING YELLOW URINE TO GRAVITY, NO MEASURABLE BM IN RECTAL TUBE. FULL BED BATH AND LINEN CHANGE COMPLETED THIS NIGHT.
[2025-01-19 07:28] LABS: Percent Saturation 41.3 % (15.0-50.0)
[2025-01-19] MEDS ORDERED: Lisinopril 10 MG Tab PT SCH (09:00)
[2025-01-19] MEDS ORDERED: Furosemide 10 MG/ML 4ML Vial IV ONE (09:00)
--- NOTE | 2025-01-19 09:00 | NUR ---
AM NOTE... ASSUMED CARE OF PT AT 0700, PT IS INTUBATED BUT NOT SEDATED. PT'S VENT SETTINGS WERE AC/VC: 14/450/5/30% WITH O2 SATS>95% L/S EXP WHEEZES IN THE UPPER LOBES DIM IN THE LOWER LOBES. THIS WAS CHANGED OVER TO SP: 8/5 AND 30% WITH O2 SATS>95% AT 0800. PT IS IN SR IN THE 70'S BP IS HYPERTENSIVE WITH SBPs 170'S-180'S SHE WAS MEDICATED PER EMAR. PT HAS GENERALIZED EDEMA TO HER BUE AND BLE. OG TUBE IS PATENT WITH TUBE FEEDS RUNNING PER ORDERS. THIS WAS STOPPED AT 0900 FOR POSSIBLE EXTUBATION TODAY. BT PRESENT AND HYPERACTIVE. RECTAL TUBE IS IN PLACE AND DRAINING LOOSE BROWN STOOL TO GRAVITY. JARA IS PATENT AND DRAINING CLEAR YELLOW URINE TO GRAVITY.
--- NOTE | 2025-01-19 12:03 | NUR ---
PT EXTUBATED... PT WAS EXTUBATED AT 1200 TO 4L NC WITH O2 SATS>95%.
[2025-01-19 12:25] LABS: Free Thyroxine 0.81 ng/dL (0.70-1.60); Phosphorus, Blood 5.7 mg/dL (2.5-4.9); Thyroid Stimulating Hormone 0.007 uIU/mL (0.360-4.800)
[2025-01-19] MEDS ORDERED: NiCARdipine HCL 25 MG/10 ML (2.5MG/ML) IV ONE (13:00)
[2025-01-19] MEDS ORDERED: NiCARdipine HCL 50 MG in NS 250 ML IV SCH (13:05)
[2025-01-19] MEDS ORDERED: Darbepoetin Alfa In Albumn Sol 40 MCG/0.4 ML SC SCH (16:00)
--- NOTE | 2025-01-19 18:32 | NUR ---
SHIFT SUMMARY.... PT HAS BEEN SLEEPY BUT WAKES EASILY SINCE EXTUBATION. PT IS ABLE TO ANSWER QUESTIONS BUT HER VOICE IS VERY WEAK AND SOFT. PT IS CURRENTLY ON 2L NC WITH O2 SATS>95%. THE PT WAS STARTED ON A NICARDIPINE GTT D/T HYPERTENSION WITH SBPs IN THE 200'S. NICARDIPINE GTT IS CURRENTLY AT 15MG/HR WITH A GOAL OF SBPs 150'S-160'S. RECTAL TUBE IS STILL PATENT DRAINING SCANT BROWN LOOSE STOOLS TO GRAVITY. PT'S JARA IS PATENT AND DRAINING CLEAR YELLOW URINE TO GRAVITY.
--- NOTE | 2025-01-19 22:20 | NUR ---
DR. PASTRANA TO BEDSIDE FOR PT EVAL
[2025-01-20] VITALS (65 sets, daily range): BP systolic 77–169; BP diastolic 41–98
[2025-01-20 04:11] LABS: BASOPHILS ABSOLUTE AUTO 0.02 K/mm3 (0.00-0.23); BASOPHILS PERCENT AUTO 0 % (0-2); EOSINOPHILS ABSOLUTE AUTO 0.05 K/mm3 (0.00-0.68); EOSINOPHILS PERCENT AUTO 0 % (0-6); Hemoglobin 7.7 g/dL (11.5-16.0); IMMATURE GRAN ABSOLUTE AUTO 0.16 K/mm3 (0.00-0.10); IMMATURE GRAN PERCENT AUTO 1 % (0-1); LYMPHOCYTES ABSOLUTE AUTO 0.77 K/mm3 (0.84-5.20); LYMPHOCYTES PERCENT AUTO 4 % (21-46); MONOCYTES ABSOLUTE AUTO 0.92 K/mm3 (0.16-1.47); MONOCYTES PERCENT AUTO 5 % (4-13); Mean Corpuscular HGB 29.7 pg (26.0-34.0); Mean Corpuscular HGB Conc 32.1 g/dL (31.5-36.5); Mean Corpuscular Volume 93 fL (80-100); Mean Platelet Volume 10.3 fL (9.1-12.4); NEUTROPHILS ABSOLUTE AUTO 17.72 K/mm3 (1.96-9.15); NEUTROPHILS PERCENT AUTO 90 % (41-73); Platelet Count 487 K/mm3 (150-400); RDW Coefficient Variation 13.5 % (11.7-14.2); Red Blood Cell Count 2.59 M/mm3 (3.80-5.20); White Blood Cell Count 19.64 K/mm3 (4.00-11.30)
[2025-01-20 04:38] LABS: Albumin, Blood 1.9 g/dL (3.4-5.0); Anion Gap 13 mmol/L (3-11); Blood Urea Nitrogen 126 mg/dL (8-24); Bun/Creatinine Ratio 69.6 (12.0-20.0); CO2, Blood 20 mmol/L (21-32); Calcium, Blood 8.5 mg/dL (8.5-10.1); Chloride, Blood 116 mmol/L (98-108); Creatinine, Blood 1.81 mg/dL (0.40-1.00); Glomerular Filtration Rate 30 (60-); Glucose, Blood 167 mg/dL (70-99); Magnesium, Blood 2.1 mg/dL (1.6-2.4); Phosphorus, Blood 6.2 mg/dL (2.5-4.9); Potassium, Blood 3.9 mmol/L (3.5-5.5); Sodium, Blood 145 mmol/L (136-145)
[2025-01-20] MEDS ORDERED: Dose Adjust by Pharmacy XX STA ×3 (05:07→18:49)
--- NOTE | 2025-01-20 07:10 | NUR ---
NOC SHIFT SUMMARY NO ACUTE EVENTS OVERNIGHT. PT CALLS OUT TO MAKE NEEDS KNOWN, SPEAKING WITH SLOW SOFT SPEECH. ORIENTED TO SELF. REMAINS WEAK IN ALL EXTREMITIES. NSR ON CHILD SUPPORT INVESTIGATOR W/ RATE OF 50-60S. NICARDIPINE DRIP ON STAND BY. PT ON 3L VIA NC. PT UNABLE TO TOLERATE BIPAP. WHEEZES T/O ALL LUNG HAYES. PT HAS STRONG COUGH AND ENCOURAGED TO DO SO FREQUENTLY TO CLEAR SECRETIONS. JARA PATENT AND DRAINING TO GRAVITY. RECTAL TUBE IN PLACE W/ MINIMAL OUTPUT DURING SHIFT. PT AFEBRILE. PT TURNED Q2 HOURS. PLAN OF CARE ONGOING.
[2025-01-20] MEDS ORDERED: Enoxaparin 100 MG/ML 1ML SYR SC SCH (09:00)
--- NOTE | 2025-01-20 09:00 | NUR ---
START OF SHIFT THIS NURSE ASSUMED CARE AT APPROXIMATELY 0715. PT RESTING IN BED WITH RT PLACING PT ON BIPAP. PT CONTINUOUSLY ASKED FOR BIPAP TO COME OFF. PT AXO X1 TO SELF. PT RECIEVED MEDS FROM EMAR FOR ANXIETY RELATED WITH BIPAP. WILL CONTINUE WITH THE PLAN OF CARE.
[2025-01-20] MEDS ORDERED: LORazepam 2 MG/ML 1ML Injection IV PRN (12:25)
--- NOTE | 2025-01-20 12:35 | NUR ---
BED SIDE SWALLOW EVAL THIS NURSE PERFORMED A NURSING BEDSIDE SWALLOW EVALUATION. PT MOUTH WAS CLEANED, PT WAS SAT UPRIGHT TO 90 DEGREES. PT WAS ABLE TO PERFORM A STRONG COUGH BEFORE AND ABLE TO MOVE HER TONGUE TO THE CORNERS OF HER MOUTH. 3OZ OF WATER WAS GIVEN WITHOUT A STRAW. PT HAD A WET COUGH AFTER A SWALLOW ALONG WITH BURPING. THIS NURSE NOTIFIED MD OF A FAILED SWALLOW EVALUATION AND ST WAS CONSULTED.
[2025-01-20 12:46] LABS: Bun/Creatinine Ratio 71.5 (12.0-20.0); Calcium, Blood 8.6 mg/dL (8.5-10.1); Creatinine, Blood 1.79 mg/dL (0.40-1.00); Potassium, Blood 4.2 mmol/L (3.5-5.5)
[2025-01-20] MEDS ORDERED: Dextrose 5% 1,000 ML IV SCH (12:55)
--- NOTE | 2025-01-20 16:58 | NUR ---
START OF SHIFT PT REMAINS RESTING IN BED. PT WHEEZE IMPROVED WITH SECOND ROUND OF BIPAP. PT ABLE TO TOLERATE BIPAP WITH MEDS ON EMAR. NO OTHER ACUTE EVENTS THROUGHOUT THE DAY. WILL CONTINUE WITH THE PLAN OF CARE.
--- NOTE | 2025-01-20 17:08 | NUR ---
SHIFT SUMMARY PT REMAINS ON BED REST. PT ABLE TO TOLERATE BIPAP WITH MEDS ON EMAR. NO OTHER ACUTE EVENTS THROUGHOUT THE DAY. WILL CONTINUE WITH THE PLAN OF CARE.
[2025-01-20 23:25] LABS: CK TOTAL 20 U/L (26-192)
[2025-01-21] VITALS (11 sets, daily range): BP systolic 123–175; BP diastolic 51–97
[2025-01-21] MEDS ORDERED: Clarify Drug Order XX ONE (02:10)
[2025-01-21 04:35] LABS: Hematocrit 23.7 % (33.0-51.0); Hemoglobin 7.5 g/dL (11.5-16.0); Mean Corpuscular HGB 29.6 pg (26.0-34.0); Mean Corpuscular HGB Conc 31.6 g/dL (31.5-36.5); Mean Corpuscular Volume 94 fL (80-100); Mean Platelet Volume 10.2 fL (9.1-12.4); Platelet Count 471 K/mm3 (150-400); RDW Coefficient Variation 13.7 % (11.7-14.2); RDW Standard Deviation 46.1 fL (35.1-46.3); Red Blood Cell Count 2.53 M/mm3 (3.80-5.20); White Blood Cell Count 14.38 K/mm3 (4.00-11.30)
[2025-01-21 04:53] LABS: Albumin, Blood 1.9 g/dL (3.4-5.0); Anion Gap 11 mmol/L (3-11); Blood Urea Nitrogen 108 mg/dL (8-24); Bun/Creatinine Ratio 66.7 (12.0-20.0); CO2, Blood 21 mmol/L (21-32); Calcium, Blood 8.7 mg/dL (8.5-10.1); Chloride, Blood 120 mmol/L (98-108); Creatinine, Blood 1.62 mg/dL (0.40-1.00); Glomerular Filtration Rate 34 (60-); Glucose, Blood 214 mg/dL (70-99); Phosphorus, Blood 5.1 mg/dL (2.5-4.9); Potassium, Blood 3.7 mmol/L (3.5-5.5); Sodium, Blood 148 mmol/L (136-145)
--- NOTE | 2025-01-21 05:45 | NUR ---
NOC SHIFT SUMMARY NO ACUTE EVENTS. PT ORIENTED TO SELF, ABLE TO MAKE NEEDS KNOWN W/ SOFT, MUMBLED SPEECH. PT ON ROOM AIR, SATS>92%. BP STABLE. HR 60-70S, SINUS. AFEBRILE. RECTAL TUBE IN PLACE. JARA CATH PATENT. CALL LIGHT W/ IN REACH. PLAN OF CARE ONGOING.
[2025-01-21] MEDS ORDERED: Scopolamine Hydrobromide Patch TOP SCH (13:10)
[2025-01-21] MEDS ORDERED: Furosemide 10 MG / ML 2ML Vial IV ONE (14:00)
--- NOTE | 2025-01-21 16:31 | NUR ---
PT A&Ox4 ON RA, SITTING UP IN BED WITH HEP GTT RUNNING PER EMAR. JARA DRAINING YELLOW URINE AND RECTAL TUBE DRAINING A SMALL AMOUNT OF BROWN FECES. MD WROTE AN ORDER FOR NG TUBE AND TUBE FEEDS TO BE STARTED , WHEN NURSE WENT IN TO ROOM TO EXPLAIN PROCEDURE THE PATIENT REFUSED. MD NOTIFIED OF PT REFUSAL AND OF ELEVATED BP'S.
[2025-01-21] MEDS ORDERED: HydrALAZINE HCl 20 MG / ML 1ML Vial IV PRN (16:35)
--- NOTE | 2025-01-21 17:22 | NUR ---
PALLIATIVE CARE VISIT: CALL RECEIVED FROM PRIMARY RN BRANDY PT IS REFUSING DOBHOFF. MET WITH PT IN HER ROOM. PT IS ABLE TO STATE WHERE SHE IS AT. SHE IS ANSWERING QUESTIONS APPROPRIATELY BUT IS SLOW TO RESPOND. DISCUSSED GOALS OF CARE WITH PT. RISKS ASSOCIATED WITH REFUSING A DOBHOFF FOR FEEDING/NOURISHMENT. PT STATES SHE DOES NOT WANT FEEDING TUBE PLACED. PT STATES SHE DOES NOT WANT NUTRITION THROUGH AN IV. PT STATES SHE WANTS TO BE ABLE TO EAT AND DRINK ICE WATER. DISCUSSED RISKS ASSOCIATED WITH EATING AND DRINKING SUCH ASPIRATION REQUIRING INTUBATION, WORSENING LUNG INFECTION. PT CONTINUES TO DECLINE FEEDING TUBE, IV NOURISHMENT STATING "ALL I WANT TO DO IS DRINK ICE WATER". PT ALSO STATES "I DON'T WANT TO BE INTUBATED AGAIN". DISCUSSED DNR VS CPR. RISKS VS BENEFITS. PT STATES SHE WANTS TO BE A DNR, DOES NOT WANT CHEST COMPRESSIONS OR INTUBATION. PT DOES STATE SHE WANTS TO CONTINUE TO TREAT HER INFECTION/ILLNESS. EDUCATED PT THAT RISKS ASSOCIATED WITH EATING AND DRINKING WILL LIKELY NEGATE TREATMENT. ADVISED DOBHOFF FEEDING MAY ONLY BE TEMPORARY UNTIL HER ILLNESS IS FULLY TREATED. PT CONTINUES TO DECLINE DOBHOFF. DISCUSSED COMFORT MEASURES WITH PT AND SHE IS AGREEABLE TO FOREGOING LIFE SAVING TREATMENT WITH ANTIBIOTICS/HEPARIN SO SHE CAN EAT AND DRINK. UPDATED PRIMARY RN ON ABOVE PT CHOICES/CONVERSATION. CALLED DR. HAWKINS X 2. NO RETURN CALL AT THIS TIME. UNABLE TO LEAVE A MESSAGE.
[2025-01-21] MEDS ORDERED: Metoprolol Tartrate 1 MG/ML 5 ML VIAL IV SCH (18:00)
[2025-01-21] MEDS ORDERED: FentaNYL Citrate 50 MCG/ML 2 ML Injection IV PRN (20:35)
--- NOTE | 2025-01-21 21:03 | NUR ---
ASKED PATIENT IF SHE IS READY TO PUT ON HER BIPAP-PATIENT STATED " I DONT WANT TO WEAR THAT, I DONT LIKE IT". AT THIS TIME PATIENT IS NOT IN RESPIRATORY DISTRESS, RESPIRATIONS ARE EQUAL AND UNLABORED WITH AUDIABLE WHEEZES. PATIENT DENIES SOB. PATIENT REFUSED BI-PAP.
[2025-01-22] VITALS (13 sets, daily range): BP systolic 128–183; BP diastolic 49–113
[2025-01-22 03:49] LABS: BASOPHILS ABSOLUTE AUTO 0.01 K/mm3 (0.00-0.23); BASOPHILS PERCENT AUTO 0 % (0-2); EOSINOPHILS PERCENT AUTO 1 % (0-6); Hematocrit 24.3 % (33.0-51.0); Hemoglobin 7.7 g/dL (11.5-16.0); IMMATURE GRAN ABSOLUTE AUTO 0.08 K/mm3 (0.00-0.10); IMMATURE GRAN PERCENT AUTO 1 % (0-1); LYMPHOCYTES PERCENT AUTO 4 % (21-46); MONOCYTES ABSOLUTE AUTO 0.61 K/mm3 (0.16-1.47); MONOCYTES PERCENT AUTO 4 % (4-13); Mean Corpuscular HGB 30.1 pg (26.0-34.0); Mean Corpuscular HGB Conc 31.7 g/dL (31.5-36.5); Mean Corpuscular Volume 95 fL (80-100); Mean Platelet Volume 10.2 fL (9.1-12.4); NEUTROPHILS ABSOLUTE AUTO 15.13 K/mm3 (1.96-9.15); NEUTROPHILS PERCENT AUTO 92 % (41-73); Platelet Count 466 K/mm3 (150-400); RDW Standard Deviation 46.6 fL (35.1-46.3); Red Blood Cell Count 2.56 M/mm3 (3.80-5.20); White Blood Cell Count 16.53 K/mm3 (4.00-11.30)
[2025-01-22 04:09] LABS: Magnesium, Blood 1.9 mg/dL (1.6-2.4)
[2025-01-22 04:14] LABS: Anion Gap 13 mmol/L (3-11); Blood Urea Nitrogen 84 mg/dL (8-24); Bun/Creatinine Ratio 57.5 (12.0-20.0); CO2, Blood 19 mmol/L (21-32); Calcium, Blood 8.7 mg/dL (8.5-10.1); Chloride, Blood 120 mmol/L (98-108); Creatinine, Blood 1.46 mg/dL (0.40-1.00); Glomerular Filtration Rate 39 (60-); Glucose, Blood 238 mg/dL (70-99); Potassium, Blood 3.7 mmol/L (3.5-5.5); Sodium, Blood 148 mmol/L (136-145)
--- NOTE | 2025-01-22 04:43 | NUR ---
SHIFT SUMMARY. PATIENT IS A&O, SLOW TO RESPOND. PATIENT CALLS OUT AT TIMES. PATIENT ASKING FOR ICE WATER AT BEGINNING OF SHIFT-EDUCATED PATIENT ON HER SPEECH EVAL AND THAT AT THIS TIME SHE IS NOT ABLE TO TOLERATE FOODS AND FLUIDS PER SPEECH EVAL; PATIENT UNDERSTOOD BUT STILL REQUESTS WATER BECAUSE "I SAID I CAN HAVE IT"-OFFERED PATIENT MOUTH SWAPS, MOUTH MOISTURIZER AND ORAL CARE DONE PER ORDERS-PATIENT WAS ABLE TO TOELRATE THIS CARE IN PLACE OF WATER BUT WOULD LIKE TO TALK TO THE DOCTOR IN THE MORNING IN REGARDS TO HER BEING ABLE TO DRINK-WILL RELAY TO ONCOMING NURSE. PATIENT HAS JARA CATHETER AND RECTAL TUBE IN PLACE-BOTH PATENT. PATIENT IS ON A HEPARIN DRIP FOR PROPHYLAXIS-SEE ORDERS. PATIENT IS ON RA WITH NOTABLE WHEEZING-BREATHING TREATMENTS GIVEN PER RT-PATIENT REFUSED TO WEAR HER BIPAP THIS EVENING. PATIENT IS COMPLIANT WITH CARE. PATIENT REPOSITIONED T/O NIGHT. PATIENT HAS A DRY COUGH. PATIENT REPORTED PAIN THIS SHIFT-RESIDENT CONTACTED AND ORDERED FOR FENTANYL-SEE ORDERS. PATIENT REQUESTING DNR CODE STATUS, PATIENT RELAYED THIS INFORMATION TO DAYSHIFT NURSE, PALLIATIVE CARE NURSE AND THIS NURSE-DISCUSSED WITH RESIDENT, PATIENT IS ABLE TO MAKE HER NEEDS KNOWN AND ANSWER ALL ORIENTATION QUESTIONS APPROPRIATELY-CODE STATUS CHANGED. BED IS LOCKED IN THE LOWEST POSITION WITH CALL LIGHT IN REACH, CARE IS ONGOING.
[2025-01-22] MEDS ORDERED: Dose Adjust by Pharmacy XX STA ×2 (05:05→18:24)
[2025-01-22] MEDS ORDERED: Dextrose 5% 1,000 ML IV SCH ×5 (05:30→22:55)
[2025-01-22] MEDS ORDERED: Insulin Regular 100 UNIT/ML 10ML Vial SC SCH (11:30)
--- NOTE | 2025-01-22 12:15 | NUR ---
CALL TO MD ARORA CALL TO MD ARORA TO REPORT NA LEVEL. MD W/ ORDER TO DC D5W GTT & RECHECK NA LEVEL @ 1600 & CALL W/ RESULTS BEFORE 1700.
--- NOTE | 2025-01-22 13:12 | NUR ---
PO INTAKE PT INITIALLY TOLERATING SPOONFULS OF NECTAR THICK WATER WHILE SITTING UPRIGHT IN BED. PT STATING "MORE WATER" AFTER EACH SPOONFUL. PT ENCOURAGED TO PACE HERSELF. THIS RN DOING TASKS IN RM IN BETWEEN SPOONFULS. AFTER A FEW MINUTES, PT THEN W/ INCREASED WORK OF BREATHING. RR 30s & PT BREATHING HEAVILY. FURTHER PO INTAKE HELD AT THIS TIME.
--- NOTE | 2025-01-22 16:04 | NUR ---
DISCUSSED CASE WITH PROVIDER AND BEDSIDE RN. MET WITH PATIENT. SHE HAD JUST TAKEN A FEW SIPS OF THICKENED LIQUID. SHE WAS EXPERIENCING SHORTNESS OF BREATH AND KEPT FALLING ASLEEP DURING MY VISIT. IT WAS DIFFICULT TO HAVE A CONVERSATION WITH HER AT THIS TIME. CALLED MYLES (FRIEND) TO RELAY CONVERSATION THAT SAURAV CISNEROS HAD WITH THE PATIENT YESTERDAY, AND TO UPDATE HIM TO HER CURRENT CONDITION. HE REPORTED THAT HE WAS COMING IN SHORTLY AND I WOULD MEET HIM WHEN HE ARRIVED.
--- NOTE | 2025-01-22 18:20 | NUR ---
SODIUM / MD ULYSSES ARORA W/ ORDER TO RESTART D5W GTT @ 75 & RECHECK NA LEVEL @ 2200 & CALL W/ NA RESULTS BY 2300.
--- NOTE | 2025-01-22 18:52 | NUR ---
A&Ox4 ON RA W/JARA DRAINING YELLOW URINE AND FECAL TUBE IN PLACE. SHE REFUSED TO WORK WITH PHYSICAL THERAPY TODAY. HEP GTT RUNNING PER EMAR. SHE IS NOW ON A PUREE DIET W/NECTAR THICK LIQUIDS. MEDS ARE GIVEN CRUSHED WITH PUREE. SHE FREQUENTLY ASKS FOR WATER.
[2025-01-22] MEDS ORDERED: Protein Supplement 30 ML UD PO SCH (21:00)
--- NOTE | 2025-01-22 22:50 | NUR ---
DR. ARORA CONTACTED AND NOTIFIED OF PATIENTS SODIUM LEVEL. DR. ARORA ORDERED FOR D5 TO BE DECREASED FROM 75ML/HR TO 50ML/HR.
--- NOTE | 2025-01-22 23:07 | NUR ---
PATIENT REFUSED BREATHING TREATMENT FROM RT AND BIPAP MACHINE.
[2025-01-23] VITALS (35 sets, daily range): BP systolic 38–140; BP diastolic 24–94
[2025-01-23] MEDS ORDERED: Dopamine/Dextrose 250 ML IV SCH
[2025-01-23] MEDS ORDERED: Dose Adjust by Pharmacy XX STA (00:42)
--- NOTE | 2025-01-23 00:42 | NUR ---
RECEIVED CRITICAL VALUE FOR APTT. NO NOTED CHANGES TO PATIENTS CONDITION. PATIENT DOES NOT HAVE ANY SIGNS OF BLEEDING. HEPARIN ON HOLD FOR ONE HOUR AT THIS TIME AND DOSE CHANGE WHEN HEPARIN IS RESTARTED-SEE ORDERS.
[2025-01-23 04:38] LABS: BASOPHILS ABSOLUTE AUTO 0.01 K/mm3 (0.00-0.23); BASOPHILS PERCENT AUTO 0 % (0-2); EOSINOPHILS ABSOLUTE AUTO 0.03 K/mm3 (0.00-0.68); EOSINOPHILS PERCENT AUTO 0 % (0-6); Hematocrit 20.6 % (33.0-51.0); Hemoglobin 6.4 g/dL (11.5-16.0); IMMATURE GRAN ABSOLUTE AUTO 0.07 K/mm3 (0.00-0.10); IMMATURE GRAN PERCENT AUTO 1 % (0-1); LYMPHOCYTES ABSOLUTE AUTO 0.32 K/mm3 (0.84-5.20); LYMPHOCYTES PERCENT AUTO 2 % (21-46); MONOCYTES ABSOLUTE AUTO 0.41 K/mm3 (0.16-1.47); MONOCYTES PERCENT AUTO 3 % (4-13); Mean Corpuscular HGB 30.5 pg (26.0-34.0); Mean Corpuscular HGB Conc 31.1 g/dL (31.5-36.5); Mean Corpuscular Volume 98 fL (80-100); Mean Platelet Volume 10.6 fL (9.1-12.4); NEUTROPHILS ABSOLUTE AUTO 13.09 K/mm3 (1.96-9.15); NEUTROPHILS PERCENT AUTO 94 % (41-73); Platelet Count 381 K/mm3 (150-400); RDW Coefficient Variation 14.6 % (11.7-14.2); RDW Standard Deviation 50.4 fL (35.1-46.3); White Blood Cell Count 13.93 K/mm3 (4.00-11.30)
[2025-01-23 04:59] LABS: Albumin, Blood 1.6 g/dL (3.4-5.0); Albumin/Globulin Ratio 0.5 (0.8-1.8); Bilirubin, Total 0.4 mg/dL (0.1-1.0); Bun/Creatinine Ratio 58.2 (12.0-20.0); Calcium, Blood 7.4 mg/dL (8.5-10.1); Creatinine, Blood 1.22 mg/dL (0.40-1.00); Globulin, Blood 3.3 g/dL (2.2-4.0); Magnesium, Blood 1.6 mg/dL (1.6-2.4); Potassium, Blood 3.3 mmol/L (3.5-5.5); Total Protein, Blood 4.9 g/dL (6.4-8.2)
[2025-01-23 05:28] LABS: Base Excess Venous -13.2 mmol/L; Bicarbonate Venous 14.6 mmol/L (24.0-30.0); PCO2 Venous 25.2 mmHg (38-42); pH Blood Venous 7.32 (7.34-7.37)
[2025-01-23 05:40] LABS: Phosphorus, Blood 3.8 mg/dL (2.5-4.9)
--- NOTE | 2025-01-23 05:42 | NUR ---
PATIENT HAS HAD A SUDDEN DECLINE IN BLOOD PRESSURE TO 100/40 MAP 60. PATIENTS TEMPERATURE IS 96.5 VIA PROBE, RESPIRATIONS ARE AT 32 BREATHES PER MINUTE, AND PATIENT REPORTS SOB. NOTIFIED AND TO CALL BACK WITH RENAL PANEL WITH PLANS TO START BICARB.
[2025-01-23] MEDS ORDERED: Sodium Bicarb 8.4% Inj 100 MEQ in Dextrose 5% 1,000 ML IV SCH (05:50)
[2025-01-23] MEDS ORDERED: Sodium Bicarb 8.4% 1 MEQ/ML 50 ML Vial IV ONE (05:50)
[2025-01-23] MEDS ORDERED: NS 1,000 ML IV ONE (05:50)
[2025-01-23] MEDS ORDERED: Midodrine 5 MG Tab PO SCH (05:50)
[2025-01-23] MEDS ORDERED: Sodium Bicarb 8.4% 1 MEQ/ML 50 ML Vial ONE (05:52)
[2025-01-23 06:08] LABS: Albumin, Blood 1.9 g/dL (3.4-5.0); Anion Gap 18 mmol/L (3-11); Blood Urea Nitrogen 79 mg/dL (8-24); Bun/Creatinine Ratio 50.3 (12.0-20.0); CO2, Blood 14 mmol/L (21-32); Calcium, Blood 8.4 mg/dL (8.5-10.1); Chloride, Blood 117 mmol/L (98-108); Creatinine, Blood 1.57 mg/dL (0.40-1.00); Glomerular Filtration Rate 36 (60-); Glucose, Blood 395 mg/dL (70-99); Phosphorus, Blood 4.8 mg/dL (2.5-4.9); Potassium, Blood 4.3 mmol/L (3.5-5.5); Sodium, Blood 145 mmol/L (136-145)
[2025-01-23] MEDS ORDERED: Furosemide 10 MG/ML 4ML Vial IV PRN (06:20)
--- NOTE | 2025-01-23 07:20 | NUR ---
shift summary. patient is alert and oriented. patient calls out, is able to make her needs known. patient has refused bipap and all breathing treatments this shift. patient anxious and had prn dose of anti anxiety medication as requested. patient slept off and on t/o night. this morning this rn and machine castings plasterer went into patients room for patient care, patient had a decline in b/p and heart rate with an increase in respirations requiring PODIATRIC PHYSICIAN to be called. PODIATRIC PHYSICIAN to patient room, after iv bolus, medications and bipap patient regained alertness. patients blood pressure remains hypotensive this morning. patient has order to receive 1 unit of prbc. report given to dayshift nurse.
[2025-01-23] MEDS ORDERED: NS 250 ML IV PRN (07:25)
--- NOTE | 2025-01-23 08:30 | NUR ---
Transfer to ICU Upon care assumption, pt alert, wearing bipap, only able to nod/shake her head Y/N. Pt BP trending down. MD Bucio to bedside for discussion w/ pt. Pt initially nodding head yes wanting comfort care, to come off the bipap, not have iv medication to improve BP but wanting to receive blood. Pt then deciding against comfort care, agreeable to wear bipap, receive blood & go to ICU for BP medication. Pt confirming DNR/DNI status to . 1 unit pRBCs initiated. No improvement in BP. w/ order to transfer to ICU for levophed gtt. Levophed gtt started. Pt taken to ICU-2 by bed at approx 0800 & bedside shift report given to accepting PRINCIPAL DATABASE DEVELOPER. Pt personal assistant, Narciso notified. Narciso patel will come to be with pt.
[2025-01-23] MEDS ORDERED: Dopamine/Dextrose 250 ML IV ONE (09:41)
--- NOTE | 2025-01-23 10:11 | NUR ---
"Spiritual Care | Attended Pt. pass at approx. 1000. This school psychologist assistant was notified to be on standby for EOL care and education with Caregiver when they arrive."
--- NOTE | 2025-01-23 10:23 | NUR ---
Assumed care of pt with Felicita MESSER on pt arrival to ICU 2 at 0813. On arrival, levophed at 4 mcg/min with MAP in low 40s. Uptitrated to 10 mcg/min. Blood transfusing, bicarb drip at prescribed rate. Pt on BiPAP 16/8 and 45% FiO2. Dr Bucio in to see patient. Discussed that pt is DNR/DNI, okay with vasopressors but not ACLS. On arrival, pt restless, reaching for BiPAP. Discussed that break can be provided when pt has stabilized. Pt had BM, bedbath and linen change done. CBG measured and treated per orders. Value greater than 350 mg/dl reported to Dr Bucio by Robert RN. At 0926, pt began having episodes of bradycardia with absent respiratory effort. lab rep called to room. Calls placed to Dr Anaya and pt's caregiver Mart. Both Dr Anaya and Mart reported they were on their way to the hospital. Noted that pt no longer had respiratory effort, RT notified and BiPAP pressures were increased. Dr Anaya presented to bedside at 0943 and TOD was determined at 0945. Mart in to see patient at 1015 and has now departed with her belongings. Pt to be transferred to [facility].
--- NOTE | 2025-01-23 10:32 | NUR ---
"Spiritual Care | EOL with Caregiver Trever at Bedside Facilitated a life review at Pts. bedside. Trever verbalized the Pts. gaurav and the difficult health journey she had been on. Listen with empathy and a calming presence. Trever displayed evidence of appropriate grief. Trever asked for Prayer. Scripture is read, Prayer for the Pt. and her friends who are left behind are made. Trever displayed evidence of significant meaning and agreement. Trever verbalized gratitude for the spiritual care suppor. [facility] is the home the family has chosen."
[2025-01-23] MEDS ORDERED: Dextrose 5% 1,000 ML IV SCH (18:15)
== END 2025-01-23 12:37 | DRG 870 ==
LOC: ER 12:40 → ERHOLD 16:10 → ICUE 16:10 → ERHOLD 16:24 → PCU 17:57 → ICUE 01-09 09:52 → PCU 01-21 12:26 → ICUE 01-23 08:37
PROVIDERS: Hospitalist; Internal Medicine; Internal Medicine Critical Care Medicine; Internal Medicine Nephrology; Student in an Organized Health Care Education/Training Program; ADMIT Internal Medicine
PROC: 0DH67UZ Insertion of Feeding Device into Stomach, Via Natural or Artificial Opening (ICD-10-PCS; 2025-01-08)
PROC: 3E0G76Z Introduction of Nutritional Substance into Upper GI, Via Natural or Artificial Opening (ICD-10-PCS; 2025-01-08)
PROC: 0T9B70Z Drainage of Bladder with Drainage Device, Via Natural or Artificial Opening (ICD-10-PCS; 2025-01-08)
PROC: 5A09557 Assistance with Respiratory Ventilation, Greater than 96 Consecutive Hours, Continuous Positive Airway Pressure (ICD-10-PCS; 2025-01-08)
PROC: 3E03329 Introduction of Other Anti-infective into Peripheral Vein, Percutaneous Approach (ICD-10-PCS; 2025-01-08)
PROC: 0BH17EZ Insertion of Endotracheal Airway into Trachea, Via Natural or Artificial Opening (ICD-10-PCS; principal; 2025-01-10)
PROC: 5A1955Z Respiratory Ventilation, Greater than 96 Consecutive Hours (ICD-10-PCS; 2025-01-10)
PROC: 3E033XZ Introduction of Vasopressor into Peripheral Vein, Percutaneous Approach (ICD-10-PCS; 2025-01-10)
PROC: 3E043XZ Introduction of Vasopressor into Central Vein, Percutaneous Approach (ICD-10-PCS; 2025-01-10)
PROC: 02HV33Z Insertion of Infusion Device into Superior Vena Cava, Percutaneous Approach (ICD-10-PCS; 2025-01-13)
PROC: B5181ZA Fluoroscopy of Superior Vena Cava using Low Osmolar Contrast, Guidance (ICD-10-PCS; 2025-01-13)
PROC: 3E04329 Introduction of Other Anti-infective into Central Vein, Percutaneous Approach (ICD-10-PCS; 2025-01-13)
PROC: 30233J1 Transfusion of Nonautologous Serum Albumin into Peripheral Vein, Percutaneous Approach (ICD-10-PCS; 2025-01-18)
PROC: 30233N1 Transfusion of Nonautologous Red Blood Cells into Peripheral Vein, Percutaneous Approach (ICD-10-PCS; 2025-01-23)
DX: A41.02 Sepsis due to Methicillin resistant Staphylococcus aureus (principal); E11.10 Type 2 diabetes mellitus with ketoacidosis without coma; G92.8 Other toxic encephalopathy; J96.21 Acute and chronic respiratory failure with hypoxia; Z66 Do not resuscitate; J96.22 Acute and chronic respiratory failure with hypercapnia; R65.21 Severe sepsis with septic shock; J15.212 Pneumonia due to Methicillin resistant Staphylococcus aureus; N17.0 Acute kidney failure with tubular necrosis; J12.1 Respiratory syncytial virus pneumonia; R44.3 Hallucinations, unspecified; Z68.42 Body mass index [BMI] 45.0-49.9, adult; E87.1 Hypo-osmolality and hyponatremia; F11.20 Opioid dependence, uncomplicated; I69.351 Hemiplegia and hemiparesis following cerebral infarction affecting right dominant side; E87.0 Hyperosmolality and hypernatremia; Z99.11 Dependence on respirator [ventilator] status; E11.22 Type 2 diabetes mellitus with diabetic chronic kidney disease; N18.30 Chronic kidney disease, stage 3 unspecified; I12.9 Hypertensive chronic kidney disease with stage 1 through stage 4 chronic kidney disease, or unspecified chronic kidney disease; E78.5 Hyperlipidemia, unspecified; E11.43 Type 2 diabetes mellitus with diabetic autonomic (poly)neuropathy; K31.84 Gastroparesis; M79.7 Fibromyalgia; Z96.612 Presence of left artificial shoulder joint; Z96.611 Presence of right artificial shoulder joint; Z96.41 Presence of insulin pump (external) (internal); F41.9 Anxiety disorder, unspecified; E66.9 Obesity, unspecified; I48.0 Paroxysmal atrial fibrillation; G89.29 Other chronic pain; E11.40 Type 2 diabetes mellitus with diabetic neuropathy, unspecified; D63.1 Anemia in chronic kidney disease; R45.1 Restlessness and agitation; E86.9 Volume depletion, unspecified; E11.65 Type 2 diabetes mellitus with hyperglycemia; E83.39 Other disorders of phosphorus metabolism; R00.1 Bradycardia, unspecified; R13.10 Dysphagia, unspecified; I95.9 Hypotension, unspecified; I08.0 Rheumatic disorders of both mitral and aortic valves; E87.6 Hypokalemia; Z98.890 Other specified postprocedural states; Z79.899 Other long term (current) drug therapy; Z79.811 Long term (current) use of aromatase inhibitors; Z79.82 Long term (current) use of aspirin; Z79.4 Long term (current) use of insulin; Z98.1 Arthrodesis status; Z90.710 Acquired absence of both cervix and uterus; Z79.85 Long-term (current) use of injectable non-insulin antidiabetic drugs; Z79.01 Long term (current) use of anticoagulants
CPT/HCPCS: 0241U; 31500; 31720; 36415; 36430; 36569; 51702; 70450; 71045; 71250; 76770; 80048; 80053; 80069; 80202; 81001; 82140; 82330; 82550; 82552; 82728; 82803; 82947; 83540; 83550; 83605; 83735; 83880; 84100; 84295; 84439; 84443; 85025; 85027; 85520; 85610; 85730; 86704; 86850; 86900; 86901; 86923; 87040; 87070; 87077; 87086; 87147; 87186; 87205; 87340; 92526; 92610; 93005; 93010; 93306; 93312; 93325; 94002; 94003; 94640; 94660; 94664; 94762; 96374-59; 97110; 97140; 97162; 97166; 97535; 99285-25; A9270; C1751; G0480; J0360; J0456; J0612; J0696; J0712; J0881; J1265; J1644; J1650; J1720; J1815; J1940; J2020; J2060; J2405; J2470; J2543; J2704; J2919; J3010; J3370; J3475; J3480; J7030; J7040; J7050; J7060; J7070; J7120; P9016; P9047